=== PATIENT | female | born 1990 | race Caucasian/White ===

== ENCOUNTER 2019-11-04 21:28 | Emergency (ER) | payer OTHER ==
--- OUTSIDE RECORDS SUMMARY | 2019-11-04 21:30 | XMS REPORT | Summary of Care ---
:1990 Author Organization [facility] Address [address] [place] [address] Care Team Providers Name Role Phone Darron Espinozabradford Barrett Primary Care Provider Reason for Visit Reason Comments Medical Records Encounter Details Date Type Department Care Team Description 08/13/[address] [facility] Women's Emma Ba M edical Records [facility]- [address], [address] [place] [phone] [place] [phone] Allergies No Known Allergiesdocumented as of this encounter (statuses as of 08/13/2019) Medications Medication Sig Dispensed Refills Start Date End Date Status vitamin w/FA Take 1 tablet by 100 tablet 3 06/25/2019 Active tabletIndications: mouth daily. High-risk in third trimester, 37 weeks gestation of , Obesity (BMI 30-39.9), Intrauterine growth restriction (IUGR) affecting care of mother, third trimester, single or unspecified fetus, Liveborn infant, of rizo , born in hospital by vaginal delivery docusate calcium 240 Take 1 capsule by 60 capsule 1 06/25/2019 Active mg mouth once daily capsuleIndications: as needed for High-risk Constipation. in third trimester, 37 weeks gestation of , Obesity (BMI 30-39.9), Intrauterine growth restriction (IUGR) affecting care of mother, third trimester, single or unspecified fetus, Liveborn , of rizo , born in hospital by vaginal delivery ferrous sulfate 325 Take 1 tablet by 60 tablet 2 06/25/2019 Active mg (65 mg iron) mouth 2 (two) tabletIndications: times daily. High-risk in third trimester, 37 weeks gestation of , Obesity (BMI 30-39.9), Intrauterine growth restriction (IUGR) affecting care of mother, third trimester, single or unspecified fetus, Liveborn infant, of rizo , born in hospital by vaginal delivery ibuprofen 600 mg Take 1 tablet by 30 tablet 1 06/25/2019 Active tabletIndications: mouth every 6 High-risk (six) hours as in third trimester, needed (Pain). 37 weeks gestation of Take with food or , Obesity milk. (BMI 30-39.9), Intrauterine growth restriction (IUGR) affecting care of mother, third trimester, single or unspecified fetus, Liveborn , of rizo , born in hospital by vaginal delivery hydrocortisone-pramov Insert 1 10 g 0 07/16/2019 Active ine rectal foam Applicator into rectum 2 (two) times daily. documented as of this encounter (statuses as of 08/13/2019) Active Problems Problem Noted Date Routine follow-up 07/22/2019 Obesity (BMI 30-39.9) 05/19/2019 documented as of this encounter (statuses as of 08/13/2019) Resolved Problems Problem Noted Date Resolved Date IUGR (intrauterine growth restriction) affecting care of 07/22/2019 mother Liveborn infant, of rizo , born in hospital by 06/24/2019 07/22/2019 vaginal delivery Poor growth affecting management of mother in third 07/22/2019 trimester High-risk in third trimester 05/04/2019 0 07/22/2019 37 weeks gestation of 05/04/2019 07/22/19 20 documented as of this encounter (statuses as of 08/13/2019) Social History Tobacco Use Types Packs/Day Years Used Date Never Smoker Smokeless Tobacco: Never Used Alcohol Use Drinks/Week oz/Week Comments Not Currently Sex Assigned at Date Recorded Not on file Job Start Date Occupation Industry Not on file Not on file Not on file Travel History Travel Start Travel End No recent travel history available. COVID-19 Exposure Response Date Recorded In the last month, have you been in contact with No / Unsure 07/22/2019 1:22 PM CDT someone who was confirmed or suspected to have Coronavirus / COVID-19? documented as of this encounter Last Filed Vital Signs Not on filedocumented in this encounter Progress Notes Emma Ba PA-C - 08/13/2019 8:20 AM CDTMR received from [facility] on 12/28/18 HIV-neg Free T4- 1.29 HEP B-neg Rubella+ O+ RPR-neg CBC=wnl PAP done on 11/23/18 NILM, HPV neg GC/CT/TRICH-neg USG done on 03/05/2019 Live IUP at 21 weeks 1 day by sonogram FHR 141 bpm Fetus in variable position survey appears normal documented in this encounter Plan of Treatment Date Type Specialty Care Team Description 08/23/2019 Office Visit Obstetrics & Gynecology Radha Benoit MD [address] [place] [address] DR. Mejia [address] [place] [address] 15 [phone] Health Maintenance Due Date Last Done Comments VARICELLA VACCINES (1 of 2 - 1989 2-dose childhood series) DTaP,Tdap,and Td Vaccines (1 - 07/01/1999 Tdap) Depression Screening 2000 PAP SMEAR 2009 INFLUENZA VACCINE Completed 12/01/2018 PNEUMOCOCCAL 0-64 YEARS COMBINED Aged Out No longer eligible based on SERIES patient's age to complete this topic documented as of this encounter Results Not on filedocumented in this encounter Insurance Payer Benefit Plan / Subscriber ID Effective Phone Address T e Group Dates [employer] xxxxxxxxx 2019-Prese [address] BOX Medic [place] [id number] MA[place] MED[place] documented as of this encounter
--- OUTSIDE RECORDS SUMMARY | 2019-11-04 21:30 | XMS REPORT | Summary of Care ---
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 tabletIndications: High-risk in third trimester, 37 weeks gestation [...] third trimester, needed (Pain). 37 weeks gestation Take with food or of , milk. Obesity (BMI 30-39.9), Intrauterine growth restriction (IUGR) affecting care of mother, third trimester, single or unspecified fetus, Liveborn , of rizo , born in hospital by vaginal delivery hydrocortisone-pramo Insert 1 10 g 0 07/16/2019 Active vine rectal foam Applicator into rectum 2 (two) times daily. metroNIDAZOLE Take 1 tablet by 10 tablet 0 08/23/2019 08/28/19 20 Active (FLAGYL) 500 mg mouth 2 (two) tabletIndications: times daily for 5 Uterine perforation days. by uterine sound Hospital, Clinic, or Other Ordered Dose Route Frequency Start Date End Date Status Facility Administered Medication etonogestrel (NEXPLANON) 68 mg Sdrm ONCE NOW 08/23/201908/02 Ended implant 68 mg documented as of this encounter (statuses as of 08/23/2019) Active Problems Problem Noted Date Nexplanon in place 08/23/2019 Uterine perforation by uterine sound 08/23/2019 Obesity (BMI 30-39.9) 05/19/2019 documented as of this encounter (statuses as of 08/23/2019) Resolved Problems Problem Noted Date Resolved Date Routine follow-up 07/22/2019 08/23/2019 IUGR (intrauterine growth restriction) affecting care of 07/22/2019 mother Liveborn , of rizo , born in hospital by 06/24/2019 07/22/2019 vaginal delivery Poor growth affecting management of mother in third 07/22/2019 trimester High-risk in third trimester 05/04/2019 0 07/22/2019 37 weeks gestation of 05/04/2019 07/22/19 20 documented as of this encounter (statuses as of 08/23/2019) Social History Tobacco Use Types Packs/Day Years [...] been in contact with No / Unsure 08/23/2019 1:40 PM CDT someone who was confirmed or suspected to have Coronavirus / COVID-19? documented as of this encounter Last Filed Vital Signs Vital Sign Reading Time Taken Comments Blood Pressure 111/75 08/23/2019 2:14 PM CDT Pulse 72 08/23/2019 2:14 PM CDT Temperature 36.9 C (98.4 F) 08/23/2019 2:14 PM CDT Respiratory Rate 18 08/23/2019 2:14 PM CDT Oxygen Saturation - - Inhaled Oxygen Concentration - - Weight 73 kg (161 lb) 08/23/2019 2:14 PM CDT Height - - Body Mass Index 29.45 06/24/2019 4:47 AM CDT documented in this encounter Progress Notes Lise Benoit MD - 08/23/2019 1:30 PM CDTIUD INSERTION PROCEDURE NOTE Preoperative Diagnoses: Desires LARC The risks, benefits and alternatives were discussed. The patient voiced her understanding. She wished to proceed and an informed consent was obtained. Patient has been identified with name and and will be undergoing IUD placement. Indications for Mirena are: Desires LARC. Patient, procedure and site have been confirmed by the following clinicians: Dr. Benoit. Timeout performed by Dr. Benoit. Procedure: The patient is placed on the exam table in a dorsal lithotomy position. Vaginal speculuminserted. The cervix was cleansed with Betadine x 3. The single tooth tenaculum was placed on the anterior lip of the uterus. Uterus sounded and loss of resistance was noted. Transabdominal USG performed and sound was noted to perforate through the fundus of the uterus. Minimal blood without active bleeding noted. All the instruments removed. Patient has cramping and was given Ibuprofen 600 mg PO once in clinic. Discussed uterine perforation and appeared to be fundal. Patient was observed in the clinic and vital signs stable. Cramping improved with Ibuprofen. Discussed PO Flagyl x 5 days for prophylaxis given uterine perforation. Strong ER precautions given. Patient to follow-up in 2 days via tele-healthor sooner if needed. Discussed awaiting 4 weeks before attempting to place Mirena IUD under ultrasound guidance. Patient elects to use Nexplanon instead. Nexplanon PLACEMENT PROCEDURE NOTE Preoperative Diagnoses: Desires LARC The risks, benefits and alternatives were discussed. The patient voiced her understanding. She wished to proceed and an informed consent was obtained. Patient has been identified by name and and will be undergoing Nexplanon placement. Patient is right handed. Patient, procedure and site have been confirmed by the following clinicians: Dr. Benoit. Timeout performed by Dr. Benoit Procedure: The patient is placed on the exam table in a supine position. Her non-dominant arm is flexed at the elbow and externally rotated so her wrist is parallel to her ear and her hand is positioned next to her head. The inner aspect of the upper arm is marked at 8cm and 12cm superior to the medial epicondyle, in the mid-portion of the upper arm, parallel with the humerus. The surface was cleaned with alcohol swab x 2. The insertion area is injected subcutaneously with 5 ccs of lidocaine 1%without epinephrine along the planned insertion tunnel. The surface of the inner arm is then prepped with betadine x 3. The Nexplanon insertion needle is then inserted at 8cm superior to the medial epicondyle, using counter traction and lifting the skin to keep the needle in the subdermal connective tissue. The needle is advanced to 12 cm above the medial epicondyle. The cannula is then retracted and needle is removed. There is minimal bleeding from the insertion site. The Nexplanon capsule is easily palpable by myself and the patient. Sterile gauze and a pressure dressing is placed over the removal site. The patient tolerated the procedure well and there were no complications. Post-procedure instructions given. Patient verbalized understanding. Findings Successful placement of Nexplanon Assessment Successful placement of Nexplanon Plan Nexplanon insertion (primary encounter diagnosis) Comment: Reviewed counseling as below: I counseled the patient about Nexplanon. It is the most effective form of contraception. After insertion, there is a chance the patient may experience amenorrhea or infrequent, frequent, or prolongedbleeding. There is a >10% chance of having bleeding or spotting between menstrual cycles. Otherpossible side effects include GI issues, headache, acne, breast pain, vaginitis, and weight gain. Complications related to implant insertion occur in about 1% of patients and 1.7% of patients have complications associated with removal. Insertion complications include pain, slight bleeding, hematoma formation, infection, difficult insertion, migration of the implant (implants have been found within the vasculature or chest and need surgery for removal), and unrecognized insertion. Removal may be complicated by breakage of the implant and unable to palpate or locate the implant because of deep insertion requiring additional imaging and even surgery. Fertility returns rapidly after discontinuation of the implants. Patient expressed understanding of risks and desires to proceed. Negative UPT and no unprotected intercourse. Consents signed. Nexplanon inserted as above. Back up method of control recommended for 7 days. Wound care reviewed. Plan: POCT TEST, Etonogestrel (NEXPLANON) implant [address] Comment: as above Plan: Etonogestrel (NEXPLANON) implant 68 mg Encounter for female control Comment: as above Plan: Etonogestrel (NEXPLANON) implant 68 mg Return to clinic PRN problem or 6 months for wwe. Discussed treatment options. Medications as ordered. Reviewed patient instructions and provided printed copy. nexplanon Lot #: [id number] Year removal date: 2022 Patient palpated implant: Yes Lise Benoit MD #[id number] 08/23/2019 5:27 PM documented in this encounter Plan of Treatment Date Type Specialty Care Team Description 08/25/2019 Telemedicine Visit Obstetrics & Gynecology Lise Benoit MD [address] [place] [address] DR. Bruce [place] [address] [phone] Health Maintenance Due Date Last Done Comments VARICELLA VACCINES (1 of 2 - 1989 2-dose childhood series) DTaP,Tdap,and Td Vaccines ( - 07/01/1999 Tdap) Depression Screening 2000 PAP SMEAR 2009 INFLUENZA VACCINE Completed 12/01/2018 PNEUMOCOCCAL 0-64 YEARS COMBINED Aged Out No longer eligible based on SERIES patient's age to complete this topic documented as of this encounter Results Not on filedocumented in this encounter Visit Diagnoses Diagnosis Uterine perforation by uterine sound - P rimary Encounter for IUD insertion Encounter for insertion of intrauterine contraceptive device Nexplanon insertion Insertion of implantable subdermal contr aceptive Nexplanon in place Presence of subdermal contraceptive omar ce Encounter for female control Other specified contraceptive management documented in this encounter Administered Medications Medication Order MAR Action Action Date Dose Rate Site etonogestrel (NEXPLANON) Given 08/23/2019 5:24 PM CDT 68 mg Left Arm implant 68 mg 68 mg, Subdermal, ONCE NOW, 1 dose, 08/23/19 at 1830, Routine, Use approved by: DIGITAL SERVICE ENGINEER documented in this encounter Insurance Payer Benefit Plan / Subscriber ID Effective Phone Address T e Group Dates [employer] xxxxxxxxx 2019-Viola [address] BOX Medic [place] [id number] MA[place] MEDICA[place] documented as of this encounter
--- OUTSIDE RECORDS SUMMARY | 2019-11-04 21:30 | XMS REPORT | Continuity of Care Document ---
:1990 Author Organization [facility] t Address [address] [place] [address] Care Team Providers Name Role Phone Provider, Urgent Care Attending Clinician Unavailable Payers Payer Name Policy Type Policy Number Effective Date Expiration Date S ource Problems This patient has no known problems. Allergies, Adverse Reactions, Alerts This patient has no known allergies or adverse reactions. Medications This patient has no known medications. Procedures This patient has no known procedures. Encounters Start End Encounter Admission Attending Care Care Encounter Source Date/Time Date/Time Type Type Clinicians Facility Department ID 2019-11-02 2019-11-04 Urgent Provider, [facility] [id number] 16:42:53 14:49:19 [facility] [place] [id number] [id number] [phone] [address]al [address] One Results This patient has no known results.
--- OUTSIDE RECORDS SUMMARY | 2019-11-04 21:30 | XMS REPORT | Summary of Care ---
:1990 Author Organization [facility] - Health Address [address] [place] [address] Care Team Providers Name Role Phone Eduardo Espinoza Primary Care Provider Encounter Details Date Type Department Care Team Description 08/18/2019 Orders Only [facility] Doctor Unassigned, No [address] [facility] [place] [address] [address] [place] [address] Allergies No Known Allergiesdocumented as of this encounter (statuses as of 08/18/2019) Medications Medication Sig Dispensed Refills Start Date [...] as of this encounter (statuses as of 08/18/2019) Active Problems Problem Noted Date Routine follow-up 07/22/2019 Obesity (BMI 30-39.9) 05/19/2019 documented as of this encounter (statuses as of 08/18/2019) Resolved Problems Problem Noted Date Resolved Date IUGR (intrauterine growth restriction) affecting care of 07/22/2019 mother Liveborn , of rizo , born in hospital by 06/24/2019 07/22/2019 vaginal delivery Poor growth affecting management of mother in third 07/22/2019 trimester High-risk in third trimester 05/04/2019 0 07/22/2019 37 weeks gestation of 05/04/2019 07/22/19 20 documented as of this encounter (statuses as of 08/18/2019) Social History Tobacco Use Types Packs/Day Years [...] Signs Not on filedocumented in this encounter Plan of Treatment Date Type Specialty Care Team Description 08/23/2019 Office Visit Obstetrics & Gynecology Radha Benoit MD [address] [place] [address] [place] [address] [phone] Health Maintenance Due Date Last Done Comments VARICELLA VACCINES (1 of 2 - 1989 2-dose childhood series) DTaP,Tdap,and Td Vaccines (1 - 07/01/1999 Tdap) Depression Screening 2000 PAP SMEAR 2009 INFLUENZA VACCINE Completed 12/01/2018 PNEUMOCOCCAL 0-64 YEARS COMBINED Aged Out No longer eligible based on SERIES patient's age to complete this topic documented as of this encounter Procedures Procedure Name Priority Date/Time Associated Diagnosis Comme nts EXTERNAL PROVIDER Routine 08/18/2019 12:01 AM CDT RECORDS documented in this encounter Results Not on filedocumented in this encounter Insurance Payer Benefit Plan / Subscriber ID Effective Phone Address T e Group Dates [employer] xxxxxxxxx 2019-Viola P O BOX Medic aid [facility] [place] [id number] MANAGED MEDICA[place] documented as of this encounter
--- OUTSIDE RECORDS SUMMARY | 2019-11-04 21:30 | XMS REPORT | Summary of Care ---
:1990 Author Organization [facility] Address [address] [place] [address] Care Team Providers Name Role Phone Eduardo Espinoza Primary Care Provider Reason for Visit Reason Comments Medical Records Encounter Details Date Type Department Care Team Description 08/11/2019 Telephone [facility] Women's Lise Benoit MD Medical Records [facility] [place] [address] [address] [place], [place] [id number] [place] [phone] Allergies No Known Allergiesdocumented as of this encounter (statuses as of 08/12/2019) Medications Medication Sig Dispensed Refills Start Date [...] as of this encounter (statuses as of 08/12/2019) Active Problems Problem Noted Date Routine follow-up 07/22/2019 Obesity (BMI 30-39.9) 05/19/2019 documented as of this encounter (statuses as of 08/12/2019) Resolved Problems Problem Noted Date Resolved Date IUGR (intrauterine growth restriction) affecting care of 07/22/2019 mother Liveborn infant, of irzo , born in hospital by 06/24/2019 07/22/2019 vaginal delivery Poor growth affecting management of mother in third 07/22/2019 trimester High-risk in third trimester 05/04/2019 0 07/22/2019 37 weeks gestation of 05/04/2019 07/22/19 20 documented as of this encounter (statuses as of 08/12/2019) Social History Tobacco Use Types Packs/Day Years [...] Visit Obstetrics & Gynecology Radha Benoit MD [address] [place] [address] DR. Bruce [place], [place] [address] [phone] Health Maintenance Due Date Last Done Comments VARICELLA VACCINES ( - 1989 2-dose childhood series) DTaP,Tdap,and Td Vaccines ( - 07/01/1999 Tdap) Depression Screening 2000 PAP SMEAR 2009 INFLUENZA VACCINE Completed 12/01/2018 PNEUMOCOCCAL 0-64 YEARS COMBINED Aged Out No longer eligible based on SERIES patient's age to complete this topic documented as of this encounter Results Not on filedocumented in this encounter Insurance Payer Benefit Plan / Subscriber ID Effective Phone Address T [facility] Group Dates [employer] xxxxxxxxx 2019-Prese P [address] BOX Medic [place] [phone] MANAGED MEDICA[place] documented as of this encounter
--- OUTSIDE RECORDS SUMMARY | 2019-11-04 21:31 | XMS REPORT | Summary of Care ---
:1990 Author Organization [facility] Address [address] [place] [address] Care Team Providers Name Role Phone Eduardo Espinoza Primary Care Provider Reason for Visit Reason Comments Procedure nexplanon removal Encounter Details Date Type Department Care Team Description 10/22/2019 Office Visit [facility] Women's AdumTammy MD Nexplanon removal (Primary Dx); [facility]- [address] Breakthrough bleeding on Nex planon [address] [facility] [address], [address] [place] [phone] Allergies No Known Allergiesdocumented as of this encounter (statuses as of 10/22/2019) Medications Medication Sig Dispensed Refills Start End Date Status Date ferrous sulfate 325 Take 1 tablet 60 tablet 2 Active mg (65 mg iron) by mouth 2 0 tabletIndications: (two) times High-risk daily. in third trimester, 37 weeks gestation of , Obesity (BMI 30-39.9), Intrauterine growth restriction (IUGR) affecting care of mother, third trimester, single or unspecified fetus, Liveborn infant, of rizo , born in hospital by vaginal delivery vitamin Take 1 tablet 100 tablet 3 10/22/19 Discontinued w/FA by mouth 0 20 (Patient tabletIndications: daily. R eported) High-risk in third trimester, 37 weeks gestation of , Obesity (BMI 30-39.9), Intrauterine growth restriction (IUGR) affecting care of mother, third trimester, single or unspecified fetus, Liveborn infant, of rizo , born in hospital by vaginal delivery docusate calcium Take 1 capsule 60 capsule 1 0 Discontinued 240 mg by mouth once 0 20 (Patie nt capsuleIndications: daily as Reported) High-risk needed for in third trimester, Constipation. 37 weeks gestation of , Obesity (BMI 30-39.9), Intrauterine growth restriction (IUGR) affecting care of mother, third trimester, single or unspecified fetus, Liveborn infant, of rizo , born in hospital by vaginal delivery ibuprofen 600 mg Take 1 tablet 30 tablet 1 10/22/19 Discontinued tabletIndications: by mouth every 0 20 (Patient High-risk 6 (six) hours Reported) in third trimester, as needed 37 weeks gestation (Pain). Take of , with food or Obesity (BMI milk. 30-39.9), Intrauterine growth restriction (IUGR) affecting care of mother, third trimester, single or unspecified fetus, Liveborn , of rizo , born in hospital by vaginal delivery hydrocortisone-pram Insert 1 10 g 0 10/22/19 Discontinued ovine rectal foam Applicator 0 20 ( Patient into rectum 2 Report ed) (two) times daily. ondansetron 4 mg Take 1 tablet 6 tablet 0 10/22/19 Discontinued disintegrating by mouth every 0 20 (Patient tablet 12 (twelve) Reported ) hours as needed for Nausea and Vomiting (N/V). Take 30 minutes before taking antibiotic. ondansetron (ZOFRAN Take 1 tablet 20 tablet 0 Discontinued ODT) 8 mg by mouth every 0 20 (Ther apy disintegrating 8 (eight) compl eted) tabletIndications: hours as Nausea needed for Nausea and Vomiting (N/V). 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 Obesity (BMI 30-39.9) 05/19/2019 documented as of this encounter (statuses as of 10/22/2019) Resolved Problems Problem Noted Date Resolved Date Nexplanon in place 08/23/2019 10/22/2019 Routine follow-up 07/22/2019 08/23/2019 IUGR (intrauterine growth restriction) affecting care of 07/22/2019 mother Liveborn infant, of rizo , born in hospital by 06/24/2019 07/22/2019 vaginal delivery Poor growth affecting management of mother in third 07/22/2019 trimester High-risk in third trimester 05/04/2019 0 07/22/2019 37 weeks gestation of 05/04/2019 07/22/19 20 documented as of this encounter (statuses as of 10/22/2019) Social History Tobacco Use Types Packs/Day Years Used Date Never Smoker Smokeless Tobacco: Never Used Alcohol Use Drinks/Week oz/Week Comments Not Currently Sex Assigned at Date Recorded Not on file COVID-19 Exposure Response Date Recorded In the last month, have you been in contact with No / Unsure 10/22/2019 11:49 AM CDT someone who was confirmed or suspected to have Coronavirus / COVID-19? documented as of this encounter Last Filed Vital Signs Vital Sign Reading Time Taken Comments Blood Pressure 119/82 10/22/2019 11:49 AM CDT Pulse 76 10/22/2019 11:49 AM CDT Temperature 36.8 C (98.2 F) 10/22/2019 11:49 AM CDT Respiratory Rate 16 10/22/2019 11:49 AM CDT Oxygen Saturation - - Inhaled Oxygen Concentration - - Weight 70.4 kg (155 lb 3.2 oz) 10/22/2019 11:49 AM CDT Height 157.5 cm (5' 2") 10/22/2019 11:49 AM CDT Body Mass Index 28.39 10/22/2019 11:49 AM CDT documented in this encounter Patient Instructions Patient InstructionsNikki Garrison MA - 10/22/2019 11:00 AM CDT Patient Education Control: IUD (Intrauterine Device) The IUD (intrauterine device) is small, flexible, and T-shaped. A trained healthcare provider placesit in the uterus. The IUD is one of the most effective control methods. It is also reversible.This means it can be removed at any time by a trained healthcare provider. New IUDs are safe and do not have the risks of older types of IUDs. rates Talk to your healthcare provider about the effectiveness of this control method. Types of IUDs IUD insertion is done in the healthcare providers office. Two types of IUDs are available: The copper IUD releases a small amount of copper into the uterus. The copper makes it harder for sperm to reach the egg. The device works for at least 10 years. The progestin IUD releases a hormone called progestin. It causes changes in the uterus to help prevent . The device works for 3 to 5 years, depending on which device is chosen. It may be recommended for women who have anemia or heavy and painful periods. IUDs have thin strings that hang from the opening of the uterus into the vagina. This lets youcheck that the IUD stays in place. Things to know about IUDs IUDs can be used by women who have never been or by women with a history of sexually transmitted infections (STIs) or tubal . It won't move from the uterus to any other part of the body. There is a slight risk of the device coming out of the vagina (expulsion). It may not work in women who have an abnormally shaped uterus. A copper IUD may cause heavier periods and cramping. Progestin IUD may cause light periods or no periods at all (irregular bleeding or spotting is possible and normal during first 3 to 6 months). If you get a sexually transmitted infection with an IUD in place, symptoms may be more severe. When to call your healthcare provider Be sure your healthcare provider knows if you have: Asexually transmittedinfection (STI)or possible STI Liver problems Blood clots (for progestin IUD only) Breast cancer or a history of breast cancer (progestin IUD only) [employer]on last reviewed this educational content on 05/01/201619990068-1197 The [employer]. [address] [place] [address]. All rights reserved. This information is not intended as a substitute for professional medical care. Always follow your healthcare professional's instructions. documented in this encounter Progress Notes Tammy Mario MD - 10/22/2019 11:00 AM CDT29 year-old presents requesting removal of her Nexplanon inserted 2 months ago due to continualbleeding. I explained that the bleeding pattern is a known side- effect of the Nexplanon within thisperiod and that in most cases it resolves with time. She still opted for removal and will schedule an appointment to discuss Paragard insertion with Dr Benoit Nexplanon REMOVAL PROCEDURE NOTE Preoperative Diagnoses: Desires removal of Nexplanon The risks, benefits and alternatives were discussed. The patient voiced her understanding. She wished to proceed and an informed consent was obtained. Patient has been identified by name and and will be undergoing Nexplanon removal. Patient is left handed. Patient, procedure and site have been confirmed by the following clinicians: Tammy Mario MD. Timeout performed by Tammy Mario MD at 11:45 Procedure: The patient is placed on the exam table in a supine position. The implant was palpated onthe inner aspect of the left arm. The Nexplanon implant site is prepped with Betadine. Local area isinjected subcutaneously with 2 cc of lidocaine 1% without epinephrine along the planned incision site. A small incision is made with a sterile scalpel. Straight hemostat is used to access the implant through the incision site. The implant is secured with the hemostat and carefully removed through theincision. There is minimal bleeding from the incision site. Sterile gauze and a pressure dressing is placed over the removal site. The patient tolerated the procedure well and there were no complications. Post-procedure instructions given. Patient verbalized understanding. Findings Intact Nexplanon Assessment/Plan Nexplanon removal (primary encounter diagnosis) Comment: See above for procedure. Also reminded patient that she has no BC on board so to please useprotection/condoms Breakthrough bleeding on Nexplanon Tammy Mario MD documented in this encounter Plan of Treatment Date Type Specialty Care Team Description 11/05/2019 Office Visit Obstetrics & Gynecology Radha Benoit MD [address] [place] [address] [place] [address] 02/28/2020 Office Visit Obstetrics & Gynecology Emma Ba PA-C [address] [phone] Health Maintenance Due Date Last Done Comments VARICELLA VACCINES ( - 1989 2-dose childhood series) Depression Screening 2000 DTaP,Tdap,and Td Vaccines (1 - 07/01/2007 Tdap) PAP SMEAR 2009 INFLUENZA VACCINE (#1) 2019 12/01/2018 PNEUMOCOCCAL 0-64 YEARS COMBINED Aged Out No longer eligible based on SERIES patient's age to complete this topic documented as of this encounter Results Not on filedocumented in this encounter Visit Diagnoses Diagnosis Nexplanon removal - Primary Surveillance of previously prescribed im plantable subdermal contraceptive Breakthrough bleeding on Nexplanon Metrorrhagia documented in this encounter Insurance Payer Benefit Plan / Subscriber ID Effective Phone Address T ype Group Dates [employer] [id number] 2019-Viola DODD Medic [facility] [place] [phone] MANAGED MEDICAID [place] documented as of this encounter
--- OUTSIDE RECORDS SUMMARY | 2019-11-04 21:31 | XMS REPORT | Summary of Care ---
:1990 Author Organization [facility] Address [address] [place] [address] Care Team Providers Name Role Phone Eduardo Espinoza Primary Care Provider Reason for Visit Reason Comments Follow-up Encounter Details Date Type Department Care Team Description 08/25/2019 Telemedicine Visit [facility] Women's Lise Benoit MD Uterine perforation Healthcare- [address] [place] [address] by uterine sound [place] (Primary Dx) [address] [place] [address], [address] [place] [phone] Allergies No Known Allergiesdocumented as of this encounter (statuses as of 08/25/2019) Medications Medication Sig Dispensed Refills Start Date [...] 5 Uterine perforation days. 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 Communication with patient was conducted via Video Call. Location of Patient: in car Location of Provider: Office Date of Service: 08/25/2019 Chief Complaint: follow-up after uterine perforation with the sound on 08/23/2019 HPI: Steph Ramirez is a 29 year old female here for follow-up. Patient had uterine perforation that occurred during sounding of the uterus on 08/23/2019. Currently taking Flagyl for prophylaxis. Denies cramping or pain. States that she had a small amount of dark blood from vagina yesterday. No other issues. Past Medical History: Diagnosis Date Heart palpitations IBS (irritable bowel syndrome) MEDICATIONS: Outpatient Medications Marked as Taking for the 08/25/19 encounter (Telemedicine Visit) with Lise Benoit MD Medication Sig Dispense Refill metroNIDAZOLE (FLAGYL) 500 mg tablet Take 1 tablet by mouth 2 (two) times daily for 5 days. 10 tablet 0 ROS As above TELEHEALTH EXAM NAD Breathing unlabored ASSESSMENT/ PLAN Steph Ramirez is a 29 year old female with PMH as above presenting with: 1. Uterine perforation by uterine sound - Doing well - finish Flagyl as prescribed - FOLLOW-UP in 6 months for WWE or sooner if indicated After visit summary (AVS ) documentation will be available through [employer]) for this encounter. A total of 10 minutes was spent on the video call and chart review. Lise Benoit MD 08/25/2019 11:35 AM documented in this encounter Plan of Treatment Date Type Specialty Care Team Description 02/28/2020 Office Visit Obstetrics & Gynecology Emma Ba PA-C [address] [place] [address] [phone] Health Maintenance Due Date Last Done [...] perforation by uterine sound - P rimary documented in this encounter Insurance Payer Benefit Plan / Subscriber ID Effective Phone Address T ype Group Dates [employer] xxxxxxxxx 2019-Prese [address] BOX Medic aid [facility] [place] [facility] [place] [phone] [place] MEDICA[place] documented as of this encounter
--- OUTSIDE RECORDS SUMMARY | 2019-11-04 21:31 | XMS REPORT | Summary of Care ---
:1990 Author Organization [facility] Address [address] [place] [address] Care Team Providers Name Role Phone Eduardo Espinoza Primary Care Provider Reason for Visit Reason Comments Procedure nexplanon removal Encounter Details Date Type Department Care Team Description 10/22/2019 Office Visit [facility] Women's AdumTammy MD Nexplanon removal (Primary Dx); [facility]- [address] Breakthrough bleeding on Nex planon [address] [facility] [address], [address] [place] [phone] Allergies No Known Allergiesdocumented as of this [...] history of breast cancer (progestin IUD only) [employer] last reviewed this educational content on 05/01/201619997599-9543 The [employer]. [address] [place] [address]. All rights reserved. This information is not [...] Visit Obstetrics & Gynecology Radha Benoit MD [address] [place] [address] [place] [address] 02/28/2020 Office Visit Obstetrics & Gynecology Emma Ba PA-C [address] [phone] Health Maintenance Due Date Last Done [...] Address T ype Group Dates [employer] [id number] 2019-Viola DODD Medic [facility] [place] [place] [phone] MA[place] MEDICA[place] documented as of this encounter
--- OUTSIDE RECORDS SUMMARY | 2019-11-04 21:31 | XMS REPORT | Summary of Care ---
:1990 Author Organization [facility] Address [address] [place] [address] Care Team Providers Name Role Phone Eduardo Espinoza Primary Care Provider Reason for Visit Reason Comments Screening fever, sinus congestion Encounter Details Date Type Department Care Team Description 10/09/2019 Laboratory Only [facility] Family Tyler Membreno, CERTIFIED RETINAL ANGIOGRAPHER [address] [phone] Exposure to Covid-19 Medicine - [facility], Adc Fam Pob I Virus (Primary Dx) [address] [place] [address] Allergies No Known Allergiesdocumented as of this encounter (statuses as of 10/09/2019) Medications Medication Sig Dispensed Refills Start Date [...] by 60 capsule 1 06/25/2019 Active mg capsuleIndications: mouth once daily High-risk in as needed for third trimester, 37 Constipation. weeks gestation of , Obesity (BMI 30-39.9), Intrauterine growth restriction (IUGR) affecting care of mother, third trimester, single or unspecified fetus, Liveborn , of rizo , born in hospital by vaginal delivery ferrous sulfate 325 mg Take 1 tablet by 60 tablet 2 06/25/2019 Active (65 mg iron) mouth 2 (two) tabletIndications: times daily. High-risk in third trimester, 37 weeks gestation of , Obesity (BMI 30-39.9), Intrauterine growth restriction (IUGR) affecting care of mother, third trimester, single or unspecified fetus, Liveborn infant, of rizo , born in hospital by vaginal delivery ibuprofen 600 mg Take 1 tablet by 30 tablet 1 06/25/2019 Active tabletIndications: mouth every 6 High-risk in (six) hours as third trimester, 37 needed (Pain). weeks gestation of Take with food or , Obesity milk. (BMI 30-39.9), Intrauterine growth restriction (IUGR) affecting care of mother, third trimester, single or unspecified fetus, Liveborn , of rizo , born in hospital by vaginal delivery hydrocortisone-pramovi Insert 1 10 g 0 07/16/2019 Active ne rectal foam Applicator into rectum 2 (two) times daily. ondansetron 4 mg Take 1 tablet by 6 tablet 0 08/26/2019 Active disintegrating tablet mouth every 12 (twelve) hours as needed for Nausea and Vomiting (N/V). Take 30 minutes before taking antibiotic. 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 08/23/2019 Obesity (BMI 30-39.9) 05/19/2019 documented as of this encounter (statuses as of 10/09/2019) Resolved Problems Problem Noted Date Resolved Date [...] as of this encounter (statuses as of 10/09/2019) Social History Tobacco Use Types Packs/Day Years Used Date Never Smoker Smokeless Tobacco: Never Used Alcohol Use Drinks/Week oz/Week Comments Not Currently Sex Assigned at Date Recorded Not on file COVID-19 Exposure Response Date Recorded In the last month, have you been in contact with No / Unsure 10/09/2019 1:35 PM CDT someone who was confirmed or suspected to have Coronavirus / COVID-19? documented as of this encounter Last Filed Vital Signs Not on filedocumented in this encounter Nursing Notes Macy Painting LVN - 10/09/2019 1:20 PM CDTGmayra Ramirez is a 29 year old female here for COVID Screening with a Nasopharyngeal Swab All droplet and contact precautions taken with appropriate PPE worn while interacting with patient. ? Goggles ? N95 Mask ? Gloves ? Gown RR 18 Pulse Ox 98% Patient educated on plan of care for visit, swabbing technique, risks and benefits of test and length of time to receive results. Verbal consent obtained to perform test. CDC Fact Sheet for Patients nCoV Diagnostic Panel dated 05/16/2019 and Factsheet What to Do if Sick with COVID 19 04/26/19 provided. Patient swabbed per appropriate nasopharyngeal technique, and patient tolerated well. Patient was discharged from the testing clinic in stable condition. Macy Painting LVN 10/09/2019 1:37 PM Nikki Bryson MA - 10/09/2019 1:20 PM CDTPatient educated on plan of care for visit, swabbing technique, risks and benefits of test and length of time to receive results. Verbal consent obtained to perform test. CDC Fact Sheet for Patients nCoV Diagnostic Panel dated 05/16/2019 provided. documented in this encounter Plan of Treatment Date Type Specialty Care Team Description 02/28/2020 Office Visit Obstetrics & Gynecology Emma Ba PA-C [address] [place] [phone] Name Type Priority Associated Diagnoses Order S chedule COVID-19 (PCR MOLECULAR LAB Routine Exposure to Covid -19 Virus Ordered: 10/09/2019 TESTING) Health Maintenance Due Date Last Done Comments VARICELLA VACCINES (1 of 2 - 1989 2-dose childhood series) Depression Screening 2000 DTaP,Tdap,and Td Vaccines (1 - 07/01/2007 Tdap) PAP SMEAR 2009 INFLUENZA VACCINE (#1) 2019 12/01/2018 PNEUMOCOCCAL 0-64 YEARS COMBINED Aged Out No longer eligible based on SERIES patient's age to complete this topic documented as of this encounter Results Not on filedocumented in this encounter Visit Diagnoses Diagnosis Exposure to Covid-19 Virus - Primary documented in this encounter Additional Health Concerns Infection Onset Date Last Indicated Resolved Time COVID-19 Rule Out 10/09/2019 10/09/2019 documented as of this encounter Insurance Payer Benefit Plan / Subscriber ID Effective Phone Address T e Group Dates [employer] [id number] 2019-Viola DODD Medic [place] [facility] [place] [place] [phone] MA[place]GED MEDICA[place] documented as of this encounter
--- OUTSIDE RECORDS SUMMARY | 2019-11-04 21:31 | XMS REPORT | Summary of Care ---
:1990 Author Organization [facility] Address [address] [place] [address] Care Team Providers Name Role Phone Eduardo Espinoza Primary Care Provider Reason for Visit Reason Comments Rx Concern/Question pt indicated not allergic re action/ just side effects Encounter Details Date Type Department Care Team Description 08/26/2019 Telephone [facility] Women's Lise Benoit MD Rx Concern/Question Healthcare- [address] (pt indicated not [address] [place] [address] allergic reaction/ [address], [address] just side effects) [place], [place] [phone] Allergies No Known Allergiesdocumented as of this encounter (statuses as of 08/26/2019) Medications Medication Sig Dispensed Refills Start Date [...] 5 Uterine perforation days. by uterine sound ondansetron 4 mg Take 1 tablet by 6 tablet 0 08/26/2019 Active disintegrating tablet mouth every 12 (twelve) hours as needed for Nausea and Vomiting (N/V). Take 30 minutes before taking antibiotic. 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 08/23/2019 Obesity (BMI 30-39.9) 05/19/2019 documented as of this encounter (statuses as of 08/26/2019) Resolved Problems Problem Noted Date Resolved Date [...] as of this encounter (statuses as of 08/26/2019) Social History Tobacco Use Types Packs/Day Years [...] Visit Obstetrics & Gynecology Emma Ba PA-C [address] [place] [phone] Health Maintenance Due Date Last Done [...] / Subscriber ID Effective Phone Address T [facility] Group Dates [employer] xxxxxxxxx 2019-Viola [address] Medic [place] [phone] MA[place] MEDICA[place] documented as of this encounter
--- OUTSIDE RECORDS SUMMARY | 2019-11-04 21:31 | XMS REPORT | Summary of Care ---
:1990 Author Organization [facility] - [facility] Address [address] [place] [address] Care Team Providers Name Role Phone Eduardo Espinoza Primary Care Provider Reason for Visit Reason Comments Kidney Problem possible kidney infection Encounter Details Date Type Department Care Team Description 11/02/2019 Urgent Care [facility] Family Tyler Membreno, TAPEMAN [address] [address] Suprapubic pain (Primary Dx); [facility] Provider, [facility] Urgent Care Flank pain; [address] [place] [address] Allergies No Known Allergiesdocumented as of this encounter (statuses as of 11/02/2019) Medications Medication Sig Dispensed Refills Start Date End Date Status ferrous sulfate 325 mg Take 1 tablet 60 tablet 2 06/25/2019 Active (65 mg iron) by mouth 2 tabletIndications: (two) times High-risk in daily. third trimester, 37 weeks gestation of , Obesity (BMI 30-39.9), Intrauterine growth restriction (IUGR) affecting care of mother, third trimester, single or unspecified fetus, Liveborn , of rizo , born in hospital by vaginal delivery Nitrofurantoin&Nit. TAKE 1 CAPSULE 0 10/09/2019 Active Macrocryst 100 mg BY MOUTH EVERY capsule 12 HOURS FOR 5 DAYS ondansetron 8 mg 0 10/13/2019 Ac tive disintegrating tablet phenazopyridine Take 2 tablets 18 tablet 0 11/02/2019 11/05/19 20 Active (PYRIDIUM) 100 mg by mouth 3 tabletIndications: (three) times Dysuria daily for 3 days. 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 Obesity (BMI 30-39.9) 05/19/2019 documented as of this encounter (statuses as of 11/02/2019) Resolved Problems Problem Noted Date Resolved Date [...] as of this encounter (statuses as of 11/02/2019) Social History Tobacco Use Types Packs/Day Years [...] Sign Reading Time Taken Comments Blood Pressure 121/83 11/02/2019 4:45 PM CDT Pulse 90 11/02/2019 4:45 PM CDT Temperature 37.1 C (98.8 F) 11/02/2019 4:45 PM CDT Respiratory Rate 18 11/02/2019 4:45 PM CDT Oxygen Saturation 99% 11/02/2019 4:45 PM CDT Inhaled Oxygen Concentration - - Weight 69.4 kg (153 lb) 11/02/2019 4:45 PM CDT Height 157.5 cm (5' 2") 11/02/2019 4:45 PM CDT Body Mass Index 27.98 11/02/2019 4:45 PM CDT documented in this encounter Progress Notes Silvana Membreno FNP - 11/02/2019 4:40 PM CDT Cc: Chief Complaint Patient presents with Kidney Problem possible kidney infection Steph Ramirez is a 29 year old female. Patient is here with urinary symptoms as detailed below, this started 1 month ago with fever becauseof her fever she had Mismi and was covid tested and treated empirically with Levaquin for 5 days, which she completed on the 16 of September. She felt better, the 2 days ago she started having flankpain and urgency, dark urine again. She was negative for covid at the time. She has a hx of recurrent kidney stones. URINARY TRACT INFECTION Patient presents to clinic today with complaints of flank pain (right ) and urgency. This is a recurrent problem. The current episode started in the past 7 days. The problem has been gradually worsening since onset. Her pain is at a severity of 3/10. The pain is mild. Patient describes pain as burningand aching. There has been no fever. She describes her urine color as yellow. Obstructive symptoms include incomplete emptying. Pertinent negatives include no fever. She has tried antibiotics and increased fluids for the symptoms.The treatment provided mild relief. Her past medical history is significant for kidney stones and recurrent UTIs. Allergies Steph has No Known Allergies. Medications Outpatient Medications Prior to Visit Medication Sig Dispense Refill Nitrofurantoin&Nit. Macrocryst 100 mg capsule TAKE 1 CAPSULE BY MOUTH EVERY 12 HOURS FOR 5 DAYS ondansetron 8 mg disintegrating tablet ferrous sulfate 325 mg (65 mg iron) tablet Take 1 tablet by mouth 2 (two) times daily. 60 tablet2 No facility-administered medications prior to visit. 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 Social Needs Financial resource strain: Not on file Food insecurity Worry: Not on file Inability: Not on file Transportation needs Medical: Not on file Non-medical: Not on file Tobacco Use Smoking status: Never Smoker Smokeless tobacco: Never Used Substance and Sexual Activity Alcohol use: Not Currently Drug use: Not Currently Sexual activity: Yes Partners: Male Lifestyle Physical activity Days per week: Not on file Minutes per session: Not on file Stress: Not on file Relationships Social connections Talks on phone: Not on file Gets together: Not on file Attends muslim service: Not on file Active member of club or organization: Not on file Attends meetings of clubs or organizations: Not on file Relationship status: Not on file Intimate partner violence Fear of current or ex partner: Not on file Emotionally abused: Not on file Physically abused: Not on file Forced sexual activity: Not on file Other Topics Concern Not on file Social History Narrative Patient feels safe at home, no abuse. Jain preference: Mormon Family History Problem Relation Age of Onset Diabetes Father Heart Father Review of Systems Constitutional: Negative. Negative for fever. Respiratory: Negative. Negative for apnea, cough, choking, chest tightness, shortness of breath andwheezing. Cardiovascular: Negative. Negative for chest pain, palpitations and leg swelling. Gastrointestinal: Negative. Genitourinary: Positive for incomplete emptying. Skin: Negative. Neurological: Negative. Endocrine: Endocrine negative Vital Signs BP 121/83 (BP Location: Left arm, Patient Position: Sitting, BP CUFF SIZE: Adult Medium) | Pulse 90 | Temp 37.1 C (98.8 F) (Oral) | Resp 18 | Ht 5' 2" (1.575 m) | Wt 153 lb (69.4 kg) | SpO2 99% | BMI 27.98 kg/m Physical Exam Vitals signs and nursing note reviewed. Constitutional: Appearance: She is well-developed. HENT: Head: Normocephalic. Right Ear: External ear normal. Left Ear: External ear normal. Nose: Nose normal. Neck: Musculoskeletal: Normal range of motion and neck supple. Cardiovascular: Rate and Rhythm: Normal rate and regular rhythm. Heart sounds: Normal heart sounds. No murmur. No friction rub. No gallop. Pulmonary: Effort: Pulmonary effort is normal. No respiratory distress. Breath sounds: Normal breath sounds. No wheezing or rales. Chest: Chest wall: No tenderness. Abdominal: General: Bowel sounds are normal. There is no distension. Palpations: Abdomen is soft. Tenderness: There is no abdominal tenderness. There is right CVA tenderness and left CVA tenderness. Skin: General: Skin is warm and dry. Capillary Refill: Capillary refill takes less than 2 seconds. Coloration: Skin is not pale. Findings: No erythema or rash. Neurological: Mental Status: She is alert and oriented to person, place, and time. Psychiatric: Mood and Affect: Mood normal. Assessment/Plan 1. Dysuria: UA shows + nitrate, blood and leukocytes and culture done and pending. Will hold of on any antibiotics treatment again until culture comes back. 2. Abdominal pain and flank pain: will get KUB to rule acute stones. Increase fluids, namely water. UCx is pending. Discussed ways of decreasing the risk of future UTIs including wiping from front to back, increasing intake of water, emptying the bladder at regular intervals/avoiding holding urine for prolonged periods of time, and urinating after sexual intercourse. Plan of care, desired health behaviors, goals, and medication discussed with patient. Education resources provided and reviewed with AVS. Patient/guardian/family verbalized understanding & agrees to plan of care. This visit did not involve counseling and coordination that comprised more than 50% of the visit time. If applicable, the [place] [employer] database was accessed to review any controlled substance prescription claims data. The [employer] prescription claims data in GENB[employer] was reviewed to assess patient compliance with the medication treatment plan. documented in this encounter Plan of Treatment Date Type Specialty Care Team Description 11/05/2019 Office Visit Obstetrics & Gynecology Radha Benoit MD [address] [place] [address] 15 02/28/2020 Office Visit Obstetrics & Gynecology Emma Ba PA-C [address] [place] [address] [phone] Name Type Priority Associated Diagnoses Order S chedule XR KUB IMAGING STAT Suprapubic pain Expected: 11/02/2019, Expires: Flank pain 11/01/2020 Health Maintenance Due Date Last Done Comments [...] filedocumented in this encounter Visit Diagnoses Diagnosis Suprapubic pain - Primary Abdominal pain, other specified site Flank pain Abdominal pain, unspecified site Dysuria documented in this encounter Insurance Payer Benefit Plan / Subscriber ID Effective Phone Address T ype Group Dates [employer] [id number] 2019-Viola [address] B[address] Medic aid [facility] [id number] MANAGED MEDICAID [place], [place] documented as of this encounter
--- OUTSIDE RECORDS SUMMARY | 2019-11-04 21:31 | XMS REPORT | Summary of Care ---
:1990 Author Organization [facility] Address [address] [place] [address] Care Team Providers Name Role Phone Eduardo Espinoza Primary Care Provider Reason for Visit Reason Onset Date Comments Information 10/13/2019 Encounter Details Date Type Department Care Team Description 10/13/2019 Nurse Triage [facility] Marc[facility], Information [address] [facility] [place] [address] 301 [facility] [phone] [place] [address] Allergies No Known Allergiesdocumented as of this encounter (statuses as of 10/13/2019) Medications Medication Sig Dispensed Refills Start Date [...] as of this encounter (statuses as of 10/13/2019) Active Problems Problem Noted Date Nexplanon in place 08/23/2019 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 Patient scheduled for 10/13/2019 at 1600. Protocols used: INFORMATION ONLY [id number] Telephone Encounter - Emma Arcos RN - 10/13/2019 1:17 AM CDT Regarding: kidney pain and low grade fever ----- Message from Zackary Oconnell sent at 10/13/2019 1:15 AM CDT ----- Steph Ramirez is a 29 year old female documented in this encounter Plan of Treatment Date Type Specialty Care Team Description 10/13/2019 Telemedicine Visit Family Medicine Care, Provider 12 - Adult Urgent 02/28/2020 Office Visit Obstetrics & Gynecology Emma Ba PA-C [address] [place] [address] Health Maintenance Due Date Last Done Comments [...] Plan / Subscriber ID Effective Phone Address [facility] Group Dates [employer] [id number] 2019-Prese [place] [facility] [place] [phone] MANAGED MEDICAID [place] documented as of this encounter
--- OUTSIDE RECORDS SUMMARY | 2019-11-04 21:31 | XMS REPORT | Summary of Care ---
:1990 Author Organization [facility] Address [address] [place] [address] Care Team Providers Name Role Phone Eduardo Espinoza Primary Care Provider Reason for Visit Reason Comments Kidney Problem possible kidney infection Encounter Details Date Type Department Care Team Description 11/02/2019 Urgent Care [facility] Family Tyler Membreno, CASE MANAGERS [address] [address] Suprapubic pain (Primary Dx); [facility] Provider, [facility] Flank pain; [address] [place] [address] Allergies No Known Allergiesdocumented as [...] with fever becauseof her fever she had Haitaobei and was covid tested and treated empirically [...] level: Not on file 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 Catholic preference: Druze Family History Problem Relation Age of Onset [...] of the visit time. If applicable, the [place] [email or web address] database was accessed to review any controlled substance prescription claims data. The [employer] prescription claims data in Intelipost was reviewed to assess patient compliance with the medication treatment plan. documented in this encounter Miscellaneous Notes Addendum Note - Paxton Gill MA - 11/02/2019 4:40 PM CDT Addended by: PAXTON GILL MA on: 11/02/2019 05:11 PM Modules accepted: Orders documented in this encounter Plan of Treatment Date Type Specialty Care Team Description 11/05/2019 Office Visit Obstetrics & Gynecology Radha Benoit MD [address] [place] [address] [place] [address] [phone] 02/28/2020 Office Visit Obstetrics & Gynecology Emma Ba PA-C [address] [place] [address] [phone] Name Type Priority Associated Diagnoses Order S chedule XR KUB IMAGING STAT Suprapubic pain Expected: 11/02/2019, Flank pain Expires: 2020 URINE CULTURE LAB Routine Dysuria Ordered: 11/01 Health Maintenance Due Date Last Done Comments [...] Address T e Group Dates [employer] [id number] 2019-Viola DODD Medic [place] [phone] [place] MEDICAID [place] documented as of this encounter
--- OUTSIDE RECORDS SUMMARY | 2019-11-04 21:31 | XMS REPORT | Summary of Care ---
:1990 Author Organization [facility] Address [address] [place] [address] Care Team Providers Name Role Phone Eduardo Espinoza Primary Care Provider Reason for Visit Reason Comments Follow-up Encounter Details Date Type Department Care Team Description 08/25/2019 Telemedicine Visit [facility] Women's Lise Benoit MD Uterine perforation [facility]- [address] [place] [address] by uterine sound [place] (Primary Dx) [address] [place] [address] [address] [place] [address] [phone] Allergies No Known Allergiesdocumented as of this [...] (AVS ) documentation will be available through [employer] for this encounter. A total of 10 minutes was spent on the video call and chart review. Lise Benoit MD 08/25/2019 11:35 AM documented in this encounter Plan of Treatment Date Type Specialty Care Team Description 02/28/2020 Office Visit Obstetrics & Gynecology Emma Ba PA-C [address] [place] [phone] Health Maintenance Due Date Last Done [...] P O BOX Medic aid [place] [phone] [place] MEDICA[place] documented as of this encounter
--- OUTSIDE RECORDS SUMMARY | 2019-11-04 21:31 | XMS REPORT | Summary of Care ---
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 nexplanon Lot #: [id number] Year removal date: 2022 Patient palpated implant: Yes Lise Benoit MD #[id number] 08/23/2019 5:27 PM documented in this encounter Plan of Treatment Date Type Specialty Care Team Description 08/25/2019 Telemedicine Visit Obstetrics & Gynecology Lise Benoit MD [address] [place] [address] [address]. [address] [place] [address] [phone] Health Maintenance Due Date Last Done Comments [...] 08/23/19 at 1830, Routine, Use approved by: [employer] documented in this encounter Insurance Payer Benefit Plan / Subscriber ID Effective Phone Address T e Group Dates [employer] JAV[employer] xxxxxxxxx 2019-Viola [address] B[address] [place] [phone] [place] MEDICA[place] documented as of this encounter
--- OUTSIDE RECORDS SUMMARY | 2019-11-04 21:32 | XMS REPORT | Summary of Care ---
:1990 Author Organization [facility] - [facility] Address [address] [place] [address] Care Team Providers Name Role Phone Eduardo Espinoza Primary Care Provider Encounter Details Date Type Department Care Team Description 11/02/2019 Orders Only [facility] Doctor Unassigned, No [address] [facility] [place] [address] [address] [place] [address] Allergies No Known Allergiesdocumented as of this [...] Treatment Date Type Specialty Care Team Description 11/02/2019 Appointment Radiology Silvana Membreno FNP [address] [place] [phone] 11/05/2019 Office Visit Obstetrics & Gynecology Radha Benoit MD [address] [place] [address] 02/28/2020 Office Visit Obstetrics & Gynecology Emma Ba PA-C [address] [place] [phone] Health Maintenance Due Date Last Done [...] Name Priority Date/Time Associated Diagnosis Comme nts ASSIGNMENT OF BENEFITS Routine 11/02/2019 5:21 PM CDT documented in this encounter Results Not on filedocumented in this encounter Insurance Payer Benefit Plan / Subscriber ID Effective Phone Address T [facility] Group Dates [employer] [id number] 2019-Viola [address] B[address] Medic aid [facility] [place] [facility] [place] [phone] MANAGED MEDICAID [place] documented as of this encounter
--- OUTSIDE RECORDS SUMMARY | 2019-11-04 21:32 | XMS REPORT | Summary of Care ---
:1990 Author Organization [facility] Address [address] [place] [address] Care Team Providers Name Role Phone Eduardo Espinoza Primary Care Provider Reason for Visit Auth/Cert Status Reason Specialty Diagnoses / Procedures Referred By Leigha jerez Referred To Contact Radiology [facility] X-[facility] [address] [place] [address] Phone: Fax: Encounter Details Date Type Department Care Team Description 11/02/2019 Hospital Encounter [facility] Leigha Membreno FNP Arrived [facility] [address] [facility] [address] valentin Mejia[address] [place] [phone] [place] [address] [phone] [address] Allergies No Known Allergiesdocumented as of this encounter (statuses as of 11/03/2019) Medications Medication Sig Dispensed Refills Start Date [...] as of this encounter (statuses as of 11/03/2019) Active Problems Problem Noted Date 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 documented as of this encounter Last Filed Vital Signs Not on filedocumented in this encounter Plan of Treatment Date Type Specialty Care Team Description 11/05/2019 Office Visit Obstetrics & Gynecology Radha Benoit MD [address] [place], [place] [address] [address] 02/28/2020 Office Visit Obstetrics & Gynecology Emma Ba PA-C [address] [place] [phone] Name Type Priority Associated Diagnoses Date/Ti me XR KUB IMAGING STAT Suprapubic pain 11/02/2019 5:58 PM CDT Flank pain Health Maintenance Due Date Last Done Comments [...] Name Priority Date/Time Associated Diagnosis Comme nts XR KUB STAT 11/02/2019 5:58 PM CDT Suprapub ic pain Flank pain Procedure Note - [facility], Radia nt Results Inft User - 11/02/2019 6:35 PM CDT EXAM: XR KUB 11/02/2019 5:38 PM. INDICATION: 29 years-old Fem geraldo, with suprapubic and flank pain , hx of recurrent stones. COMPARISON: None.. TECHNIQUE: Frontal radiograp h of the abdomen and pelvis, one image was provided. FINDINGS: The bowel gas pattern is unr emarkable without luminal distention or evidence of obstruction. Mix ed stool and gas is in the colon and rectum. No cholelithiasis and no sto ne in the past of ureters are seen. No abnormal calcifications. Surgical clips of prior cholecystectomy are noted. IMPRESSION 1. Nonobstructive bowel gas pattern. No nephrolithiasis was seen. Preliminary Report Dictated by Resident: Eyal Harris documented in this encounter Results Not on filedocumented in this encounter Visit Diagnoses Diagnosis Suprapubic pain Abdominal pain, other specified site Flank pain Abdominal pain, unspecified site documented in this encounter Insurance Payer Benefit Plan / Subscriber ID Effective Phone Address T ype Group Dates [employer] [id number] 2019-Prese [address] B[address] Medic [place] [phone] MA[place] MEDICA[place] documented as of this encounter
--- OUTSIDE RECORDS SUMMARY | 2019-11-04 21:32 | XMS REPORT | Summary of Care ---
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 [address] [address] Reason for Visit Reason Comments Kidney Problem possible kidney infection Auth/Cert Status Reason Specialty Diagnoses / Procedures Referred By C ontact Referred To Contact Radiology Ad[facility] X-Ray [address] [place] [address] Phone: Fax: Encounter Details Date Type Department Care Team Description 11/02/2019 [facility] Tyler Gutierrez, CUSTOMER SUPPORT ASSISTANT [address] [address] Suprapubic pain (Primary Dx); [facility] Provider, [facility] Flank pain; [address] [place] [address] Allergies No Known Allergiesdocumented as of this encounter (statuses as of 11/04/2019) Medications Medication Sig Dispensed Refills Start Date [...] as of this encounter (statuses as of 11/04/2019) Active Problems Problem Noted Date 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 Rastafari preference: Mormon Family History Problem Relation Age [...] of the visit time. If applicable, the [facility] database was accessed to review any controlled substance prescription claims data. The [employer] prescription claims data in [employer] was reviewed to assess patient compliance with the medication treatment plan. documented in this encounter Miscellaneous Notes Addendum Note - Komal Gutierrez FNP - 11/02/2019 4:40 PM CDT Addended by: LAYTON GUTIERREZ DNP-KOMAL HOYOS on: 11/04/2019 02:49 PM Modules accepted: Orders ddendum Note - Paxton Gill MA - 11/02/2019 4:40 PM CDT Addended by: PAXTON IGLL MA on: 11/02/2019 05:11 PM Modules accepted: Orders documented in this encounter Plan of Treatment Date Type Specialty Care Team Description 11/05/2019 Telemedicine Visit Obstetrics & Gynecology Lise Benoit MD [address] [place] [address] DRAfshin [facility] [address] [place], [place] [address] 02/28/2020 Office Visit Obstetrics & Gynecology Emma Ba PA-C [address] [address] Health Maintenance Due Date Last Done Comments VARICELLA VACCINES ( - 1989 2-dose childhood series) Depression Screening 2000 DTaP,Tdap,and Td Vaccines ( - 07/01/2007 Tdap) PAP SMEAR 2009 INFLUENZA VACCINE (#1) 2019 12/01/2018 PNEUMOCOCCAL 0-64 YEARS COMBINED Aged Out No longer eligible based on SERIES patient's age to complete this topic documented as of this encounter Procedures Procedure Name Priority Date/Time Associated Diagnosis Comme nts URINE CULTURE Routine 11/02/2019 5:11 PM Dysuria Results for this CDT procedure are i n the results section . documented in this encounter Results XR KUB (11/02/2019 5:58 PM CDT) Specimen Impressions Performed At Nonobstructive bowel gas pattern. No nep hrolithiasis was seen. PACS/VR/DOSE Preliminary Report Dictated by Resident: Eyal Harris I, Nkechi Blanco MD., have reviewed this stud y and agree with the above report. Narrative Performed At EXAM: XR KUB 11/02/2019 5:38 PM. PACS/VR/DOSE INDICATION: 29 years-old Female, with vigil prapubic and flank pain , hx of recurrent stones. COMPARISON: None.. TECHNIQUE: Frontal radiograph of the abd omen and pelvis, one image was provided. FINDINGS: The bowel gas pattern is unremarkable wi thout luminal distention or evidence of obstruction. Mixed stool and gas is in the colon and rectum. No cholelithiasis and no stone in the pa st of ureters are seen. No abnormal calcifications. Surgical cli ps of prior cholecystectomy are noted. Procedure Note [facility], Radiant Results Inft User - 2019 7:51 AM CDT EXAM: XR KUB 11/02/2019 5:38 PM. INDICATION: 29 years-old Female, with vigil prapubic and flank pain , hx of recurrent stones. COMPARISON: None.. TECHNIQUE: Frontal radiograph of the abd omen and pelvis, one image was provided. FINDINGS: The bowel gas pattern is unremarkable wi thout luminal distention or evidence of obstruction. Mixed stool and gas is in the colon and rectum. No cholelithiasis and no stone in the pa st of ureters are seen. No abnormal calcifications. Surgical cli ps of prior cholecystectomy are noted. IMPRESSION Nonobstructive bowel gas pattern. No nep hrolithiasis was seen. Preliminary Report Dictated by Resident: Eyal Harris I, Nkechi Blanco MD., have revie wed this study and agree with the above report. Performing Organization Address City/State/Zipcode Phone Number PACS/VR/DOSE URINE CULTURE (11/02/2019 5:11 PM CDT) URINE CULTURE < 10,000 CFU/mL mixed [facility] aerobic organisms - SERVICES suggests endogenous microbial contamination Specimen Urine - URINE, CLEAN CATCH Performing Organization Address City/State/Zipcode Phone Number [facility] CLIA: [id number] [place] [address] [place] [address] documented in this encounter Visit Diagnoses Diagnosis Suprapubic pain - Primary Abdominal pain, other specified site Flank pain Abdominal pain, unspecified site Dysuria documented in this encounter Insurance Payer Benefit Plan / Subscriber ID Effective Phone Address T ype Group Dates [employer] [id number] 2019-Prese [address] [place] [id number] MANAGED [place] documented as of this encounter
[2019-11-04 21:54] LABS: Urine Blood TRACE (NEG); Urine Glucose NEGATIVE (NEG); Urine Protein NEGATIVE (NEG); Urine Specific Gravity 1.025 (1.005-1.030); Urine pH 5.5 (5.0-7.0)
[2019-11-04] MEDS ORDERED: NA CHLORIDE 0.9% 1,000 ML ONE (22:15)
[2019-11-04 22:25] LABS: Basophils % 0.3 % (0-1.3); Hematocrit 40.5 % (36.0-45.0); Lymphocytes % 24.2 % (15.3-44.8); MPV 8.4 fL (7.6-11.3); RBC Red Blood Cell Count 4.88 M/uL (3.86-4.86)
[2019-11-04 22:35] LABS: ALT/SGPT 44 U/L (12-78); AST/SGOT 16 U/L (15-37); Albumin 4.2 g/dL (3.4-5.0); Alkaline Phosphatase 87 U/L (45-117); BUN Blood Urea Nitrogen 13 mg/dL (7-18); Bicarbonate 23 mmol/L (21-32); Bilirubin Direct 0.1 mg/dL (0-0.2); Bilirubin Total 0.6 mg/dL (0.2-1.0); Glucose Level 118 mg/dL (74-106); Lipase 95 U/L (73-393); Potassium 3.7 mmol/L (3.5-5.1); Protein, Total 8.3 g/dL (6.4-8.2); Sodium Level 144 mmol/L (136-145)
[2019-11-04] MEDS ORDERED: KETOROLAC 30 MG/ML INJ ONE (23:14)
[2019-11-04 23:44] LABS: Urine Culture Reflex Order REFLEXED; Urine Mucus 1+ /HPF (NONE SEEN)
[2019-11-04 23:45] LABS: Urine Bacteria 20-50 /HPF (<20); Urine RBC <5 /HPF (NONE SEEN); Urine Urothelial Cells <5 /HPF (NONE SEEN)
--- NOTE | 2019-11-05 00:01 | EDPHYS ---
Physician Documentation [facility] Name: Steph Ramirez Age: 29 yrs Sex: Female : 1990 Arrival Date: 11/04/2019 Time: 21:31 Bed 19 Private MD: ED Physician Diego Benoit HPI: 11/03 21:51 This 29 yrs old Female presents to ER via Ambulatory with complaints of pkl Kidney Pain. 21:51 The patient complains of pain in the right flank. The pain radiates to the right lower pkl quadrant. Onset: The symptoms/episode began/occurred 1 month(s) ago, and became worse 4 day(s) ago. Patient said she has H/O kidney stone. 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 - Social history:: Smoking status: Patient denies any tobacco usage or history of. Patient/guardian denies using alcohol, street drugs. ROS: 21:51 Eyes: Negative for injury, pain, redness, and discharge, ENT: Negative for injury, pkl pain, and discharge, Neck: Negative for injury, pain, and swelling, Cardiovascular: Negative for chest pain, palpitations, and edema, Respiratory: Negative for shortness of breath, cough, wheezing, and pleuritic chest pain, Abdomen/GI: Negative for abdominal pain, nausea, vomiting, diarrhea, and constipation. 21:51 Back: Positive for flank pain, on the right. 21:51 : Positive for burning with urination. 21:51 MS/extremity: Negative for acute changes. 21:51 Skin: Negative for rash. 21:51 Neuro: Negative for altered mental status. Exam: 21:51 Head/Face: Normocephalic, atraumatic. Eyes: Pupils equal round and reactive to light, pkl extra-ocular motions intact. Lids and lashes normal. Conjunctiva and sclera are non-icteric and not injected. Cornea within normal limits. Periorbital areas with no swelling, redness, or edema. ENT: Nares patent. No nasal discharge, no septal abnormalities noted. Tympanic membranes are normal and external auditory canals are clear. Oropharynx with no redness, swelling, or masses, exudates, or evidence of obstruction, uvula midline. Mucous membranes moist. Neck: Trachea midline, no thyromegaly or masses palpated, and no cervical lymphadenopathy. Supple, full range of motion without nuchal rigidity, or vertebral point tenderness. No Meningismus. Chest/axilla: Normal chest wall appearance and motion. Nontender with no deformity. No lesions are appreciated. Cardiovascular: Regular rate and rhythm with a normal S1 and S2. No gallops, murmurs, or rubs. Normal PMI, no JVD. No pulse deficits. Respiratory: Lungs have equal breath sounds bilaterally, clear to auscultation and percussion. No rales, rhonchi or wheezes noted. No increased work of breathing, no retractions or nasal flaring. Abdomen/GI: Soft, non-tender, with normal bowel sounds. No distension or tympany. No guarding or rebound. No evidence of tenderness throughout. 21:51 Back: pain, that is moderate, of the right flank. 21:51 Musculoskeletal/extremity: Exam is negative for acute changes. 21:51 Skin: Exam negative for rash. 21:51 Neuro: Orientation: is normal, Mentation: is normal, Cranial nerves: grossly normal, Motor: is normal. Vital Signs: 21:35 BP 126 / 78; Pulse 75; Resp 16; Temp 98.2; Pulse Ox 98% ; Weight 69.4 kg; Height 5 ft. ll1 2 in. (157.48 cm); Pain 5/10; 23:00 BP 121 / 70; Pulse 70; Resp 19; Pulse Ox 99% ; Pain 5/10; rr5 11/04 00:20 BP 120 / 78; Pulse 79; Resp 16; Temp 99.1; Pulse Ox 99% ; Pain 3/10; rr5 11/03 21:35 Body Mass Index 27.98 (69.40 kg, 157.48 cm) ll1 MDM: 11/03 21:40 Patient medically screened. pkl 23:53 Data reviewed: vital signs, nurses notes, lab test result(s), radiologic studies, CT pkl scan. 23:56 ED course: Discussed lab. and CT Scan results with patient. Advised to follow up with pkl PCP in 2 weeks. Patient understood instructions. 11/03 21:50 Order name: Basic Metabolic Panel; Complete Time: 22:36 pkl 11/03 21:50 Order name: CBC with Diff; Complete Time: 22:36 pkl 11/03 21:50 Order name: Hepatic Function; Complete Time: 22:36 pkl 11/03 21:50 Order name: Lipase; Complete Time: 22:36 pkl 11/03 21:52 Order name: Urine Dipstick--Ancillary (enter results); Complete Time: 22:36 mw2 11/03 21:52 Order name: Urine --Ancillary (enter results); Complete Time: 22:36 mw2 11/03 21:50 Order name: IV Saline Lock; Complete Time: 22:03 pkl 11/03 21:50 Order name: Labs collected and sent; Complete Time: 22:04 pkl 11/03 22:31 Order name: CT Stone Protocol rr5 11/03 23:38 Order name: Urine Microscopic Only; Complete Time: 23:50 5 11/03 23:46 Order name: Urine Culture EDMS Administered Medications: 22:08 Drug: NS 0.9% 1000 ml Route: IV; Rate: 1000 ml; Site: right antecubital; rr5 23:10 Follow up: Response: No adverse reaction; IV Status: Completed infusion; IV Intake: rr5 1000ml 23:09 Drug: TORadol 30 mg Route: IVP; Site: right antecubital; rr5 11/04 00:00 Follow up: Response: No adverse reaction rr5 00:00 Drug: Rocephin - (cefTRIAXone) 1 grams Route: IVPB; Infused Over: 30 mins; Site: right rr5 antecubital; 00:22 Follow up: Response: No adverse reaction; IV Status: Completed infusion; IV Intake: 36oadx2 Disposition: 11/05/19 00:00 Discharged to Home. Impression: Right flank pain. Urinary tract infection. - Condition is Stable. - Prescriptions for Augmentin 875- 125 mg Oral Tablet - take 1 tablet by ORAL route every 12 hours for 10 days; 20 tablet. Zofran 4 mg Oral Tablet - take 1 tablet by ORAL route every 12 hours As needed; 10 tablet. - Medication Reconciliation Form, Thank You Letter, Antibiotic Education, Prescription Opioid Use form. - Follow up: Private Physician; When: 10 - 14 days; Reason: Re-evaluation by your physician. - Problem is new. - Symptoms are unchanged. Signatures: Dispatcher [employer] EDMS Diego Benoit MD MD pkl Maurice Dela Cruz RN RN rr5 Valeriy Galan RN RN ll1 Corrections: (The following items were deleted from the chart) 00:23 00:00 11/05/2019 00:00 Discharged to Home. Impression: Right flank pain. Urinary tract rr5 infection. Condition is Stable. Forms are Medication Reconciliation Form, Thank You Letter, Antibiotic Education, Prescription Opioid Use. Follow up: Private Physician; When: 10 - 14 days; Reason: Re-evaluation by your physician. Problem is new. Symptoms are unchanged. pkl
--- NOTE | 2019-11-05 00:01 | ER ---
Nurse's Notes [facility] Name: Steph Ramirez Age: 29 yrs Sex: Female : 1990 Arrival Date: 11/04/2019 Time: 21:31 Bed 19 Private MD: Diagnosis: Right flank pain. Urinary tract infection Presentation: 11/03 21:35 Chief complaint: Patient states: Right flank pain since Friday. Went to urgent care ll1 Friday, given pyridium only. + dysuria. No fever. Slight nausea. Coronavirus screen: Client denies travel out of the [place] in the last 14 days. At this time, the client does not indicate any symptoms associated with coronavirus-19. Ebola Screen: Patient denies travel to an Ebola-affected area in the 21 days before illness onset. Initial Sepsis Screen: Does the patient meet any 2 criteria? No. Patient's initial sepsis screen is negative. Risk Assessment: Do you want to hurt yourself or someone else? Patient reports no desire to harm self or others. Onset of symptoms was October 31, 2019. 21:35 Method Of Arrival: Ambulatory ll1 21:35 Acuity: SLOAN 3 ll1 22:30 Initial Sepsis Screen: Does the patient have a suspected source of infection? Yes: rr5 Dysuria/Frequency/Urgency/UTI. 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 - Social history:: Smoking status: Patient denies any tobacco usage or history of. Patient/guardian denies using alcohol, street drugs. Screenin:11 Abuse screen: Denies threats or abuse. Denies injuries from another. Nutritional rr5 screening: No deficits noted. Tuberculosis screening: No symptoms or risk factors identified. Fall Risk IV access (20 points). Total Schroeder Fall Scale indicates No Risk (0-24 pts). Assessment: 22:00 General: Appears in no apparent distress. comfortable, Behavior is calm, cooperative, rr5 appropriate for age. Pain: Complains of pain in right flank Pain radiates to right upper quadrant and right lower quadrant Pain currently is 5 out of 10 on a pain scale. Quality of pain is described as aching, Pain began gradually, Is intermittent. Neuro: Level of Consciousness is awake, alert, obeys commands, Oriented to person, place, time, situation. Cardiovascular: Capillary refill < 3 seconds Patient's skin is warm and dry. Respiratory: Airway is patent Respiratory effort is even, unlabored, Respiratory pattern is regular, symmetrical. GI: Reports lower abdominal pain, upper abdominal pain. : Reports pain in right flank(s), history of kidney stone. 22:00 EENT: No signs and/or symptoms were reported regarding the EENT system. Derm: Skin is rr5 intact, is healthy with good turgor, Skin temperature is warm. Musculoskeletal: Circulation, motion, and sensation intact. Capillary refill < 3 seconds. 23:00 Reassessment: Patient appears in no apparent distress at this time. Patient is alert, rr5 oriented x 3, equal unlabored respirations, skin warm/dry/pink. complaint of constant right flank pain. ED provider aware with order and carried out. 11/04 00:21 Reassessment: Patient appears in no apparent distress at this time. Patient is alert, rr5 oriented x 3, equal unlabored respirations, skin warm/dry/pink. discharge instruction given and explained without complaints made. Patient states symptoms have improved. Vital Signs: 11/03 21:35 BP 126 / 78; Pulse 75; Resp 16; Temp 98.2; Pulse Ox 98% ; Weight 69.4 kg; Height 5 ft. ll1 2 in. (157.48 cm); Pain 5/10; 23:00 BP 121 / 70; Pulse 70; Resp 19; Pulse Ox 99% ; Pain 5/10; rr5 11/04 00:20 BP 120 / 78; Pulse 79; Resp 16; Temp 99.1; Pulse Ox 99% ; Pain 3/10; rr5 11/03 21:35 Body Mass Index 27.98 (69.40 kg, 157.48 cm) ll1 ED Course: 11/03 21:31 Patient arrived in ED. cl3 21:37 Triage completed. ll1 21:38 Arm band placed on Patient placed in an exam room, on a stretcher. ll1 21:40 Diego Benoit MD is Attending Physician. pkl 21:41 Dela Cruz, Maurice, RN is Primary Nurse. rr5 21:58 Initial lab(s) drawn, by me, sent to lab. Inserted saline lock: 20 gauge in right jp3 antecubital area, using aseptic technique. Blood collected. 21:58 Patient maintains SpO2 saturation greater than 95% on room air. jp3 22:03 Call light in reach. Side rails up X 1. Verbal reassurance given. Pulse ox on. NIBP on. jp3 22:54 CT Stone Protocol In Process Unspecified. EDMS 11/04 00:21 No provider procedures requiring assistance completed. IV discontinued, intact, rr5 bleeding controlled, No redness/swelling at site. Pressure dressing applied. Administered Medications: 11/03 22:08 Drug: NS 0.9% 1000 ml Route: IV; Rate: 1000 ml; Site: right antecubital; rr5 23:10 Follow up: Response: No adverse reaction; IV Status: Completed infusion; IV Intake: rr5 1000ml 23:09 Drug: TORadol 30 mg Route: IVP; Site: right antecubital; rr5 11/04 00:00 Follow up: Response: No adverse reaction rr5 00:00 Drug: Rocephin - (cefTRIAXone) 1 grams Route: IVPB; Infused Over: 30 mins; Site: right rr5 antecubital; 00:22 Follow up: Response: No adverse reaction; IV Status: Completed infusion; IV Intake: [id number] Intake: 11/03 23:10 IV: 1000ml; Total: 1000ml. rr5 11/04 00:22 IV: 10ml; Total: 1010ml. rr5 Outcome: 00:00 Discharge ordered by . nargis 00:21 Discharged to home ambulatory. rr5 00:21 Condition: stable 00:21 Discharge instructions given to patient, Instructed on discharge instructions, follow up and referral plans. medication usage, Demonstrated understanding of instructions, follow-up care, medications, Prescriptions given X 2. 00:23 Patient left the ED. rr5 Signatures: Dispatcher [employer] EDSC Diego Benoit MD MD pkl Pisarski, Jacob 3 Maurice Dela Cruz, RN RN rr5 Gerry Galan 3 Valeriy Galan RN RN ll1 Corrections: (The following items were deleted from the chart) 00:21 00:20 BP 120 / 78; Pulse 79bpm; Resp 16bpm; Pulse Ox 99%; Temp 99.1F; rr5 rr5
[2019-11-05] MEDS ORDERED: CEFTRIAXONE/SWI 1gm 1 GM/10 ML SYR ONE (00:08)
--- NOTE | 2019-11-05 10:10 | RAD REPORT ---
EXAM DESCRIPTION: CT Stone Protocol CLINICAL HISTORY: 29 years Female FLANK PAIN TECHNIQUE: Contiguous axial images obtained through the abdomen and pelvis without IV contrast. Yamileth nal and sagittal reformatted images provided. This CT exam was performed according to our departmental dose-optimization program, which includes on e or more of the following dose reduction techniques: automated exposure control, adjustment of the m A and/or kV according to patient size, and/or use of iterative reconstruction technique. COMPARISON: No prior exams provided for comparison. FINDINGS: There are no renal, ureteral, or bladder calculi. There is no hydronephrosis or perinephri c stranding on either side. The appendix is normal. There is no bowel inflammation, obstruction, free intraperitoneal air, or asc ites. Prior cholecystectomy without biliary dilatation. The lung bases, unenhanced liver, pancreas, spleen, adrenal glands, kidneys, uterus, ovaries, urinary bladder, and osseous structures are normal. Small fat-containing umbilical hernia does not appear inflamed. IMPRESSION: No urolithiasis or appendicitis. No acute abdominal or pelvic findings. Electronically signed by: Nataliya Wynn MD 11/04/2019 11:27 PM CDT Due to temporary technical issues with the PACS/Fluency reporting system, reports are being signed by the in house radiologist without review as a courtesy to ensure prompt reporting. The interpreting r adiologist is fully responsible for the content of the report.
[2019-11-06 14:24] VITALS: O2SAT 99
[2019-11-06 14:26] VITALS: BP 120/78; TEMP 99.1
== END 2019-11-05 00:23 | disposition home or self-care (01) ==
LOC: ER 21:28
DX: N39.0 Urinary tract infection, site not specified (principal)
CPT/HCPCS: 96365; 96361; 87088; 85025; 87086; 80048; 36415; 81025; 80076; 83690; 76377; 74176; 96375; 99284; J7030; 81003; 81015

== ENCOUNTER 2020-01-11 18:26 | Emergency (ER) | payer MEDICAID ==
--- OUTSIDE RECORDS SUMMARY | 2020-01-11 18:29 | XMS REPORT | Summary of Care ---
:1990 Author Organization [facility] Address [address] [place] [address] Care Team Providers Name Role Phone Eduardo Espinoza Primary Care Provider Reason for Visit Reason Comments Rx Concern/Question Encounter Details Date Type Department Care Team Description 11/04/2019 Telephone [facility] Family Provider, Pratik Urgent R x Concern/Question [address] [place] [address] Allergies No Known Allergiesdocumented as of this encounter (statuses as of 11/05/2019) Medications Medication Sig Dispensed Refills Start Date [...] as of this encounter (statuses as of 11/05/2019) Active Problems Problem Noted Date 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 She does not want the referral. elephone Encounter - Silvana Membreno FNP - 11/04/2019 2:54 PM CDTI just did a result note on her because this call was routed to me...her urine culture was unremarkable, thus i made a referral to POLE LIFT OPERATOR for further eval and tx. Please help secure appointment with OBGYNas soon as possible. elephone Encounter - Lillian Mccray - 11/04/2019 11:51 AM CDTPatient is calling and is requesting to know what antibiotic should she be taking, please call patient back in regards To this encounter. documented in this encounter Plan of Treatment Date Type Specialty Care Team Description 11/05/2019 Telemedicine Visit Obstetrics & Gynecology Lise Benoit MD Arrived [address] [place] [address] DRAfshin Roberto [address] [place], [place] [address] 02/28/2020 Office Visit Obstetrics & Gynecology Emma Ba PA-C 146 [facility] [address] [place] [address] Health Maintenance Due Date Last Done [...] / Subscriber ID Effective Phone Address [employer] Dates [employer] [id number] 2019-Viola DODD Medic [facility] [facility] [place] [id number] MANAGED MEDICAID [place] documented as of this encounter
--- OUTSIDE RECORDS SUMMARY | 2020-01-11 18:29 | XMS REPORT | Continuity of Care Document ---
:1990 Author Organization [facility] t Address [address] [place] [address] Care Team Providers Name Role Phone Franko Benoit MD Attending Clinician Doctor Unassigned, Name Attending Clinician Unavailable Payers Payer Name Policy [...] Date/Time Type Type Clinicians Facility Department ID 2019-11-30 2019-11-30 Office Lise eBnoit [facility] [id number] 10:39:16 12:51:09 Visit Franko Jimenez [id number] [place] [id number] [place]ay[place] [id number] [address] 2019-11-30 2019-11-30 Orders Doctor SEGURA [id number] 00:00:00 00:00:00 Only UnassTERRY olivas [id number] [place] [facility] [id number] [id number] Results This patient has no known results.
--- OUTSIDE RECORDS SUMMARY | 2020-01-11 18:30 | XMS REPORT | Summary of Care ---
:1990 Author Organization [facility] Address [address] [place] [address] Care Team Providers Name Role Phone Eduardo Espinoza Nena Primary Care Provider Reason for Visit Reason Comments INTRAUTERINE DEVICE Paragard insertion (Routine) Status Reason Specialty Diagnoses / Referred By Referred To Procedures Contact Contact New Request Obstetrics & Diagnoses Suprapubic pain Dysuria Anene, Silvana, Gynecology Procedures CONSULT/REFERRAL [facility] [address] [address] Encounter Details Date Type Department Care Team Description 11/30/2019 Office Visit [facility] Women's Benoit, Lise hester MD Encounter for Healthcare- [address] insertion of ParaGard [address] [place] [facility] [place] [address] DR[address] LUGO (Primary Dx) Drive, [address] 7[address] [phone] Allergies No Known Allergiesdocumented as of this encounter (statuses as of 11/30/2019) Medications Medication Sig Dispensed Refills Start Date End Date Status ferrous sulfate 325 Take 1 tablet 60 tablet 2 06/25/2019 Active mg (65 mg iron) by mouth 2 tabletIndications: (two) times High-risk daily. in third [...] mg 0 10/13/2019 Ac tive disintegrating tablet miSOPROStoL 200 mcg Take 1 tablet 2 tablet 0 11/05/201911/29 Discontinued tabletIndications: by mouth 20 ( Patient Counseling for SEE-INSTRUCTIO Reported) control, NS. 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 08/23/2019 Routine follow-up 07/22/2019 08/23/2019 IUGR (intrauterine growth restriction) affecting care of 07/22/2019 mother Liveborn , of rizo , born in hospital by 06/24/2019 07/22/2019 vaginal delivery Poor growth affecting management of mother in third 07/22/2019 trimester High-risk in third trimester 05/04/2019 0 07/22/2019 37 weeks gestation of 05/04/2019 07/22/19 20 documented as of this encounter (statuses as of 11/30/2019) Social History Tobacco Use Types Packs/Day Years Used Date Never Smoker Smokeless Tobacco: Never Used Alcohol Use Drinks/Week oz/Week Comments Not Currently Sex Assigned at Date Recorded Not on file COVID-19 Exposure Response Date Recorded In the last month, have you been in contact with No / Unsure 11/30/2019 10:38 AM CDT someone who was confirmed or suspected to have Coronavirus / COVID-19? documented as of this encounter Last Filed Vital Signs Vital Sign Reading Time Taken Comments Blood Pressure 112/63 11/30/2019 11:27 AM CDT Pulse 77 11/30/2019 11:27 AM CDT Temperature 36.7 C (98.1 F) 11/30/2019 11:27 AM CDT Respiratory Rate 18 11/30/2019 11:27 AM CDT Oxygen Saturation - - Inhaled Oxygen Concentration - - Weight 71.7 kg (158 lb) 11/30/2019 11:27 AM CDT Height 157.5 cm (5' 2") 11/30/2019 11:27 AM CDT Body Mass Index 28.9 11/30/2019 11:27 AM CDT documented in this encounter Patient Instructions Patient InstructionsFabrice Arellano Etienne - 11/30/2019 10:30 AM CDT Patient Education Control: IUD (Intrauterine [...] history of breast cancer (progestin IUD only) [employer] last reviewed this educational content on 05/01/201619991196-1905 [employer]. [address] [place] [address]1976. All rights reserved. This information is not intended as a substitute for professional medical care. Always follow your healthcare professional's instructions. documented in this encounter Progress Notes Lise Benoit MD - 11/30/2019 10:30 AM CDT IUD INSERTION PROCEDURE NOTE Pap smear: Will ask patient at next visit GC/CT within 3 months: 06/17/2019 neg H/H: 06/25/2019 UPT: negative Preoperative Diagnoses: Steph Ramirez is a 29 year old female Desires LARC The risks, benefits and alternatives were discussed. The patient voiced her understanding. She wished to proceed and an informed consent was obtained. Patient has been identified with name and and will be undergoing IUD placement. Indications for Paragard IUD are: Desires LARC. Patient, procedure and site have been confirmed by the following clinicians: Dr. Benoit. Timeout performed by Dr. Benoit at 10:43 AM Procedure: The patient is placed on the exam table in a dorsal lithotomy position. Vaginal speculuminserted. The cervix was cleansed with Betadine x 3. The rest of the exam was done under direct visualization as Dr. Mario was performing the ultrasound transabdominally. Uterus sounded to 7.5 cm. IUD inserted without difficulty. String visible and trimmed to 3 cm. The patient tolerated the procedure well and there were no complications. Post-procedure instructions given. Patient verbalized understanding. Findings Successful placement of Paragard IUD, see USG report Assessment Successful placement of Paragard IUD, ultrasound shows intrauterine fundal position. Plan Encounter for insertion of Paragard IUD Comment: Reviewed counseling as below. Patient expressed understanding of risks including that of uterine perforation, IUD malposition and expulsion, along with risk of migration of IUD into the abdominal cavity requiring surgery for removal. These risks could result in additional expense to the patient. The patient desires to proceed with IUD insertion. Negative UPT and no recent unprotected intercourse. Understands need to use back up method for contraception for next 7 days. Understands needs replacement or removal in 10 years. Plan: TEST, US SUBSTATION MANAGER TRANSVAGINAL (In Clinic) Encounter for female control Comment: String check in 4 weeks. Strings trimmed to 3 cm. Plan: US SUBSTATION MANAGER TRANSVAGINAL (In Clinic) - confirmed placement of IUD with ultrasound. Return to clinic in 4 week string check. Discussed treatment options. Medications as ordered. Reviewed patient instructions and provided printed copy. Paragard Lot #: [id number] Expiration date: 08/2025 Scribe's Attestation IIsaiah , am scribing for, and in the presence of, Lise Benoit MD who performed the services described here-in. Isaiah Giles, November 30, 2019, 10:43 AM Physician's Attestation I have seen and examined the patient and agreed with the note above Lise Benoit MD 11/30/2019 1:24 PM documented in this encounter Plan of Treatment Date Type Specialty Care Team Description 01/03/2020 Office Visit Obstetrics & Gynecology Radha Benoit MD [address] [place], [place] [address] [address] [phone] 02/28/2020 Office Visit Obstetrics & Gynecology Emma Ba PA-C [address] [place] [address] [phone] Health Maintenance Due Date Last Done [...] Name Priority Date/Time Associated Diagnosis Comme nts POCT TEST Routine 11/30/2019 Encounter for inserti on Results for this of ParaGard IUD procedure ar e in the results section . documented in this encounter Results POCT TEST (11/30/2019) Pathologist Sig nature POCT PREG Negative On board controls acceptable Yes with C Line POCT PREG LOT # POCT PREG TEST DATE Specimen Urine - URINE, CLEAN CATCH documented in this encounter Visit Diagnoses Diagnosis Encounter for insertion of ParaGard IUD - Primary documented in this encounter Administered Medications Medication Order MAR Action Action Date Dose Rate Site copper (PARAGARD T Given 11/30/2019 1:26 1 Intra Uterine Abdomen 380A) IUD 1 Intra PM CDT Device Uterine Device 1 Intra Uterine Device, Intrauterine, ONCE, 1 dose, 11/30/19 at 1430, Routine documented in this encounter Insurance Payer Benefit Plan / Subscriber ID Effective Phone Address T ype Group Dates [employer] [id number] 2019-Pre[address] Medic [place] [id number] MA[place] MED[place] documented as of this encounter
--- OUTSIDE RECORDS SUMMARY | 2020-01-11 18:30 | XMS REPORT | Summary of Care ---
:1990 Author Organization [facility] Address [address] [place] [address] Care Team Providers Name Role Phone Eduardo Espinoza Primary Care Provider Reason for Visit Reason Comments F/U Encounter Details Date Type Department Care Team Description 11/05/2019 Telemedicine Visit [facility] Women's Lise Benoit, Counseling for Healthcare- [address] intrauterine device [address] [facility] (Primary Dx) [address], [address] [facility] [address] [place] [address] [phone] Allergies No Known Allergiesdocumented as of this [...] (three) times Dysuria daily for 3 days. miSOPROStoL 200 mcg Take 1 tablet by 2 tablet 0 11/05/2019 Active tabletIndications: mouth Counseling for SEE-INSTRUCTIONS control, intrauterine . Take one tab device the night before and one tab the morning of procedure documented as of this encounter (statuses as [...] encounter Progress Notes Lise Benoit MD - 11/05/2019 10:45 AM CDT TELEHEALTH NOTE Verbal consent obtained from Patient: Steph Ramirez for telehealth services provided below due to COVID-19 crises. Communication with patient was conducted via Video Call. Location of Patient: Home Location of Provider: Office Date of Service: 11/05/2019 Chief Complaint: control HPI: Steph Ramirez is a 29 year old female here to discuss about getting a paragard IUD. Patient had IUD insertion on 08/23/2019, which was aborted due to uterine perforation at that time andpatient got Nexplanon inserted. Patient then had Nexplanon removed on 10/22/2019 due to vaginal bleed ing. Patient desires IUD again. Had paragard IUD twice and wants Paragard IUD. Reports that she has kidney infection, diagnosed yesterday in ER - received IV abx and on antibiotics for the next 10 days. Feels better since been on antibiotics LMP ~ 10/21/2019 Past Medical History: Diagnosis Date Heart palpitations IBS (irritable bowel syndrome) MEDICATIONS: No outpatient medications have been marked as taking for the 11/05/19 encounter (Appointment) with Lise Benoit MD. ROS Denies fever, chills, chest pain, coughing, SOB, constipation, diarrhea, nausea, vomiting. Pain score: 0 TELEHEALTH EXAM Alert and answering/asking questions appropriately ASSESSMENT/ PLAN Steph Ramirez is a 29 year old female with PMH as above presenting with: Counseling for control, intrauterine device (primary encounter diagnosis) Comment: Risks include but are not limited to uterine perforation during insertion (03/999) which may require surgery, bleeding, infection, IUD embedded in the uterus which may require surgery, expulsion, abnormal uterine bleeding, pelvic/abdominal pain. For the copper IUD, long duration of use and effective as emergency contraception. However, the copper IUD may cause heavier menstrual bleeding and dysmenorrhea. Plan: RTC for Paragard IUD insertion, Misoprostol for cervical ripening After visit summary (AVS ) documentation will be available through [employer] for this encounter. A total of 15 minutes was spent on the video call and chart review. Lise Benoit MD 11/05/2019 11:34 AM documented in this encounter Plan of Treatment Date Type Specialty Care Team Description 02/28/2020 Office Visit Obstetrics & Gynecology Emma Ba PA-C [address] [place] [address] [phone] Health Maintenance Due Date Last Done [...] filedocumented in this encounter Visit Diagnoses Diagnosis Counseling for control, intrauteri ne device - Primary General counseling for initiation of oth er contraceptive measures documented in this encounter Insurance Payer Benefit Plan / Subscriber ID Effective Phone Address T e Group Dates [employer] [id number] 2019-[address] [address] Medic [facility] [place] [address] MANAG[place] MEDICAID [place] documented as of this encounter
--- OUTSIDE RECORDS SUMMARY | 2020-01-11 18:30 | XMS REPORT | Summary of Care ---
:1990 Author Organization [facility] - Health Address [address] [place] [address] Care Team Providers Name Role Phone Eduardo Espinoza Primary Care Provider Encounter Details Date Type Department Care Team Description 11/30/2019 Orders Only [facility] Doctor Unassigned, No [address] [facility] [place] [address] [address] [place] [address] Allergies No Known Allergiesdocumented as of this encounter (statuses as of 12/08/2019) Medications Medication Sig Dispensed Refills Start Date [...] mg 0 10/13/2019 Ac tive disintegrating tablet documented as of this encounter (statuses as of 12/08/2019) Active Problems Problem Noted Date Obesity (BMI 30-39.9) 05/19/2019 documented as of this encounter (statuses as of 12/08/2019) Resolved Problems Problem Noted Date Resolved Date [...] as of this encounter (statuses as of 12/08/2019) Social History Tobacco Use Types Packs/Day Years [...] Visit Obstetrics & Gynecology Radha Benoit MD [address] [place] [address] 02/28/2020 Office Visit Obstetrics & Gynecology Emma Ba PA-C [address] [place] [address] [phone] Health Maintenance Due Date Last Done [...] Name Priority Date/Time Associated Diagnosis Comme nts CONSENT FOR CONTRACEPTION Routine 11/30/2019 12:01 AM CDT documented in this encounter Results Not on filedocumented in this encounter Insurance Payer Benefit Plan / Subscriber ID Effective Phone Address T formerly [facility] Group Dates [employer] [id number] 2019-Viola DODD Medic [place] [phone] MA[place] MEDICAID [place] documented as of this encounter
--- OUTSIDE RECORDS SUMMARY | 2020-01-11 18:30 | XMS REPORT | Summary of Care ---
:1990 Author Organization [facility] Address [address] [place] [address] Care Team Providers Name Role Phone Eduardo Espinoza Primary Care Provider Reason for Visit Reason Comments Rx Concern/Question Notification Encounter Details Date Type Department Care Team Description 11/29/2019 Telephone [facility] Women's BenoitLise MD Rx Concern/Question; Healthcare- [address] Notification [address] [place] [address] DR[address] Mendez, [address] [address] [phone] Allergies No Known Allergiesdocumented as of this encounter (statuses as of 11/29/2019) Medications Medication Sig Dispensed Refills Start Date [...] by vaginal delivery Nitrofurantoin&Nit. TAKE 1 CAPSULE BY 0 10/09/2019 Active Macrocryst 100 mg MOUTH EVERY 12 capsule HOURS FOR 5 DAYS ondansetron 8 mg 0 10/13/2019 Ac tive disintegrating tablet miSOPROStoL 200 mcg Take 1 tablet by 2 tablet 0 11/05/2019 Active tabletIndications: mouth Counseling for SEE-INSTRUCTIONS. 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 Patient states that she already rescheduled her appointment to tomorrow. Patient states that she will remember to take the medication as prescribed. Sandrine Pa RN 11/29/2019 4:41 PM Telephone Encounter - Macy Castaneda - 11/29/2019 8:40 AM CDTPatient is calling stating that she is scheduled to have her IUD placed but is stating that she did not take the medication that she was suppose to take last night. Patient is wanting to know if she needs to go ahead and take the medication or if she needs to reschedule. Patient is requesting a call back. documented in this encounter Plan of Treatment Date Type Specialty Care Team Description 11/30/2019 Office Visit Obstetrics & Gynecology Radha Benoit MD [address] [place] [address] [address] 02/28/2020 Office Visit Obstetrics & Gynecology Emma Ba PA-C [address] [place] [phone] Health Maintenance Due Date Last Done [...] / Subscriber ID Effective Phone Address [facility] Group Dates [employer] [id number] 2019-Viola DODD Medic [facility] [place] [phone] MANAGED MEDICAID [place] documented as of this encounter
--- OUTSIDE RECORDS SUMMARY | 2020-01-11 18:30 | XMS REPORT | Summary of Care ---
:1990 Author Organization [facility] - [facility] Address [address] [place] [address] Care Team Providers Name Role Phone Eduardo Espinoza Nena Primary Care Provider Reason for Visit Reason Comments INTRAUTERINE DEVICE Paragard insertion (Routine) Status Reason Specialty Diagnoses / Referred By Referred To Procedures Contact Contact New Request Obstetrics & Diagnoses Suprapubic pain Dysuria Anene, Silvana, Gynecology Procedures CONSULT/REFERRAL PSYCHIATRIC ARNP DOUBLE NEEDLE STITCHER [address] [address] Encounter Details Date Type Department Care Team Description 11/30/2019 Office Visit [facility] Women's Benoit, Lise hester MD Encounter for Healthcare- [address] insertion of ParaGard [address] [place] [address] DR[address] LUGO (Primary Dx) Drive, [address] [address] [phone] Allergies No Known Allergiesdocumented as of this [...] history of breast cancer (progestin IUD only) [employer] last reviewed this educational content on 05/01/201619995830-3537 [employer]. [address] [place] [address]. All rights reserved. This information is not [...] removal in 10 years. Plan: TEST, US RN ADMISSION TRANSVAGINAL (In Clinic) Encounter for female control Comment: String check in 4 weeks. Strings trimmed to 3 cm. Plan: US RN ADMISSION TRANSVAGINAL (In Clinic) - confirmed placement of IUD with ultrasound. Return to clinic in 4 week string check. Discussed treatment options. Medications as ordered. Reviewed patient instructions and provided printed copy. Paragard Lot #: [id number] Expiration date: 08/2025 Scribe's Attestation IIsaiah , [...] Obstetrics & Gynecology Radha Benoit MD [address] [place], [place] [address] [address] [phone] 02/28/2020 Office Visit Obstetrics & Gynecology Emma Ba PA-C [address] [place] [address] [phone] Health Maintenance Due Date Last Done [...] Address T ype Group Dates [employer] [id number] 2019-Prese [address] Medic [place] [phone] MANAGED MEDICA[place] documented as of this encounter
[2020-01-11 20:53] LABS: Absolute Lymphocytes (CBC) 2.4 K/uL (0.7-4.9); Basophils % 0.8 % (0-1.3); Hematocrit 42.8 % (36.0-45.0); RBC Red Blood Cell Count 5.15 M/uL (3.86-4.86)
[2020-01-11 20:54] LABS: Urine Glucose NEGATIVE (NEG); Urine Specific Gravity 1.025 (1.005-1.030)
[2020-01-11 20:55] LABS: Urine Blood TRACE (NEG); Urine Protein NEGATIVE (NEG); Urine pH 5.5 (5.0-7.0)
[2020-01-11 21:09] LABS: Urine Bacteria <20 /HPF (<20); Urine RBC <5 /HPF (NONE SEEN)
[2020-01-11 21:10] LABS: Urine Culture Reflex Order NOT NEEDED
[2020-01-11 21:14] LABS: Albumin 4.2 g/dL (3.4-5.0); Bilirubin Direct 0.1 mg/dL (0-0.2); Bilirubin Total 0.3 mg/dL (0.2-1.0); Protein, Total 9.1 g/dL (6.4-8.2)
--- NOTE | 2020-01-11 23:11 | ER ---
Nurse's Notes [facility] Name: Steph Ramirez Age: 29 yrs Sex: Female : 1990 Arrival Date: 01/11/2020 Time: 18:29 Bed 16 Private MD: Diagnosis: Upper abdominal pain, unspecified Presentation: 01/10 19:01 Chief complaint: Patient states: R flank pain radiating to the RLQ x 1 week. Denies ca1 fever. Denies urinary symptoms. Coronavirus screen: Client denies travel out of the [place] in the last 14 days. At this time, the client does not indicate any symptoms associated with coronavirus-19. The client reports previous COVID testing was negative. Date of collection: October 2019. Ebola Screen: Patient negative for fever greater than or equal to 101.5 degrees Fahrenheit, and additional compatible Ebola Virus Disease symptoms Patient denies exposure to infectious person. Patient denies travel to an Ebola-affected area in the 21 days before illness onset. No symptoms or risks identified at this time. Initial Sepsis Screen: Does the patient meet any 2 criteria? No. Patient's initial sepsis screen is negative. Does the patient have a suspected source of infection? No. Patient's initial sepsis screen is negative. Risk Assessment: Do you want to hurt yourself or someone else? Patient reports no desire to harm self or others. Onset of symptoms was January 11, 2020. 19:01 Method Of Arrival: Ambulatory ca1 19:01 Acuity: SLOAN 3 ca1 GARBAGE PICK UP MAN: 19:05 LMP 12/21/2019 ca1 Historical: - Allergies: 19:05 No Known Allergies; ca1 - Home Meds: 19:05 None [Active]; ca1 - PMHx: 19:05 IBS; ca1 - PSHx: 19:05 Cholecystectomy; bunions; ca1 - Immunization history:: Adult Immunizations up to date, Flu vaccine is not up to date. - Social history:: Smoking status: Patient denies any tobacco usage or history of. - Family history:: not pertinent. - Hospitalizations: : No recent hospitalization is reported. Screenin:10 Abuse screen: Denies threats or abuse. Nutritional screening: No deficits noted. jb4 Tuberculosis screening: No symptoms or risk factors identified. Fall Risk None identified. Assessment: 20:10 General: Appears in no apparent distress. comfortable, Behavior is calm, cooperative, jb4 appropriate for age. Pain: Complains of pain in anterior aspect of right lateral abdomen Pain radiates to right lower quadrant Pain currently is 3 out of 10 on a pain scale. Neuro: Level of Consciousness is awake, alert, obeys commands, Oriented to person, place, time, situation. Cardiovascular: Patient's skin is warm and dry. Respiratory: Airway is patent Respiratory effort is even, unlabored, Respiratory pattern is regular, symmetrical. GI: No signs and/or symptoms were reported involving the gastrointestinal system. : Reports pain in right flank(s), lower quadrant(s). EENT: No signs and/or symptoms were reported regarding the EENT system. Derm: Skin is intact, Skin is pink, warm \T\ dry. Musculoskeletal: Circulation, motion, and sensation intact. Range of motion: intact in all extremities. 21:15 Reassessment: Patient appears in no apparent distress at this time. Patient and/or jb4 family updated on plan of care and expected duration. Pain level reassessed. Patient is alert, oriented x 3, equal unlabored respirations, skin warm/dry/pink. 22:30 Reassessment: Patient appears in no apparent distress at this time. Patient and/or jb4 family updated on plan of care and expected duration. Pain level reassessed. Patient is alert, oriented x 3, equal unlabored respirations, skin warm/dry/pink. 23:30 Reassessment: Patient appears in no apparent distress at this time. Patient and/or jb4 family updated on plan of care and expected duration. Pain level reassessed. Patient is alert, oriented x 3, equal unlabored respirations, skin warm/dry/pink. 23:37 Reassessment: Patient is alert, oriented x 3, equal unlabored respirations, skin bb warm/dry/pink. pt verbalized understanding of and agrees to plan of care discharge instructions given pt ambulated with steady gait to exit. Vital Signs: 19:01 BP 132 / 88; Pulse 82; Resp 16 S; Temp 98.9(TE); Pulse Ox 100% on R/A; Weight 71.67 kg ca1 (R); Height 5 ft. 2 in. (157.48 cm) (R); Pain 3/10; 21:00 BP 118 / 69; Pulse 85; Resp 16; Pulse Ox 97% on R/A; jb4 23:30 BP 110 / 71; Pulse 81; Resp 16; Pulse Ox 97% on R/A; jb4 23:37 BP 110 / 71; Pulse 80; Resp 14 S; Pulse Ox 97% on R/A; bb 19:01 Body Mass Index 28.90 (71.67 kg, 157.48 cm) ca1 ED Course: 18:29 Patient arrived in ED. ds1 19:04 Triage completed. ca1 19:05 Arm band placed on right wrist. ca1 20:00 Urine collected: clean catch specimen, clear, chantell colored. jp3 20:02 Mitchell Newby MD is Attending Physician. rn 20:02 Urine Microscopic Only Sent. ca1 20:02 Urine Culture Sent. ca1 20:10 Patient has correct armband on for positive identification. Bed in low position. Call jb4 light in reach. Side rails up X 1. Pulse ox on. NIBP on. 20:30 Initial lab(s) drawn, by or, sent to lab. Inserted saline lock: 20 gauge in left jb4 antecubital area, using aseptic technique. Blood collected. 20:55 Zheng Sorto, RN is Primary Nurse. 4 22:25 CT Abd/Pelvis - IV Contrast Only In Process Unspecified. EDMS 23:10 Hemant Patricia MD is Referral Physician. rn 23:38 No provider procedures requiring assistance completed. IV discontinued, intact, bb bleeding controlled, No redness/swelling at site. Pressure dressing applied. Administered Medications: No medications were administered Point of Care Testing: Urine : 20:06 hCG Reading: Negative; Control Reading: Positive; jp3 Outcome: 23:10 Discharge ordered by . rn 23:38 Discharged to home ambulatory. bb 23:38 Condition: stable 23:38 Discharge instructions given to patient, Instructed on discharge instructions, follow up and referral plans. Demonstrated understanding of instructions, follow-up care. 23:38 Patient left the ED. bb Signatures: Dispatcher [employer] EDPR Baca Judith ds1 Bernie Clements, RN RN bb Mitchell Newby MD MD rn Bryson, James, RN RN jb4 Georgi Vernon jp3 Kelly Moody RN RN ca1
--- NOTE | 2020-01-11 23:11 | EDPHYS ---
Physician Documentation [facility] Name: Steph Ramirez Age: 29 yrs Sex: Female : 1990 Arrival Date: 01/11/2020 Time: 18:29 Bed 16 Private MD: ED Physician Mitchell Newby HPI: 01/10 20:18 This 29 yrs old Female presents to ER via Ambulatory with complaints of Flank rn Pain. 20:18 The patient complains of pain in the right mid back. The pain does not radiate. Onset: rn The symptoms/episode began/occurred 1 week(s) ago. Modifying factors: The symptoms are alleviated by nothing. the symptoms are aggravated by nothing. Severity of pain: At its worst the pain was mild in the emergency department the pain is unchanged. The patient has experienced a previous episode. Reports right flank pain for 1 week, no fever/nausea/vomiting/diarrhea/constipation. No urinary symptoms. Last time had this pain was UTI, so came in for eval. No trauma. Reports IUD placed recently and still having a little vaginal bleeding. Has had cholecystectomy. . SEGREGATOR: 19:05 LMP 12/21/2019 ca1 Historical: - Allergies: 19:05 No Known Allergies; ca1 - Home Meds: 19:05 None [Active]; ca1 - PMHx: 19:05 IBS; ca1 - PSHx: 19:05 Cholecystectomy; bunions; ca1 - Immunization history:: Adult Immunizations up to date, Flu vaccine is not up to date. - Social history:: Smoking status: Patient denies any tobacco usage or history of. - Family history:: not pertinent. - Hospitalizations: : No recent hospitalization is reported. ROS: 20:18 Constitutional: Negative for fever, chills, and weight loss, Eyes: Negative for injury, rn pain, redness, and discharge, Neck: Negative for injury, pain, and swelling, Cardiovascular: Negative for chest pain, palpitations, and edema, Respiratory: Negative for shortness of breath, cough, wheezing, and pleuritic chest pain, Abdomen/GI: + right flank pain, negative for nausea/vomiting/diarrhea. Back: Negative for injury : Negative for injury, bleeding, discharge, and swelling, MS/Extremity: Negative for injury and deformity, Skin: Negative for injury, rash, and discoloration, Neuro: Negative for headache, weakness, numbness, tingling, and seizure. Exam: 20:18 Constitutional: This is a well developed, well nourished patient who is awake, alert, rn and in no acute distress. Head/Face: Normocephalic, atraumatic. Cardiovascular: Regular rate and rhythm. No pulse deficits. Respiratory: Speaking full sentences. No increased work of breathing, no retractions or nasal flaring. Abdomen/GI: soft, non-tender, no distension, no masses Back: No spinal tenderness. No costovertebral tenderness. Full range of motion. Skin: Warm, dry MS/ Extremity: Pulses equal, no cyanosis. Neuro: Awake and alert, GCS 15 Vital Signs: 19:01 BP 132 / 88; Pulse 82; Resp 16 S; Temp 98.9(TE); Pulse Ox 100% on R/A; Weight 71.67 kg ca1 (R); Height 5 ft. 2 in. (157.48 cm) (R); Pain 3/10; 21:00 BP 118 / 69; Pulse 85; Resp 16; Pulse Ox 97% on R/A; jb4 23:30 BP 110 / 71; Pulse 81; Resp 16; Pulse Ox 97% on R/A; jb4 23:37 BP 110 / 71; Pulse 80; Resp 14 S; Pulse Ox 97% on R/A; bb 19:01 Body Mass Index 28.90 (71.67 kg, 157.48 cm) ca1 MDM: 20:02 Patient medically screened. rn 23:07 Differential diagnosis: nephrolithiasis, pyelonephritis, UTI, diverticulitis, IBS, IBD. rn Data reviewed: vital signs, nurses notes, lab test result(s), radiologic studies, CT scan, and as a result, I will admit patient. Counseling: I had a detailed discussion with the patient and/or guardian regarding: the historical points, exam findings, and any diagnostic results supporting the discharge/admit diagnosis, lab results, radiology results, the need for outpatient follow up, to return to the emergency department if symptoms worsen or persist or if there are any questions or concerns that arise at home. Response to treatment: the patient's symptoms have markedly improved after treatment, and as a result, I will discharge patient. Special discussion: I discussed with the patient/guardian in detail that at this point there is no indication for admission to the hospital. It is understood, however, that if the symptoms persist or worsen the patient needs to return immediately for re-evaluation. Based on the history and exam findings, there is no indication for further emergent testing or inpatient evaluation. I discussed with the patient/guardian the need to see the dredging inspector for further evaluation of the symptoms. 01/10 19:02 Order name: Urine Culture [facility] 01/10 19:02 Order name: Urine Microscopic Only; Complete Time: 22:26 [facility] 01/10 20:17 Order name: Basic Metabolic Panel; Complete Time: 22: 01/10 20:17 Order name: CBC with Diff; Complete Time: : 01/10 20:17 Order name: Hepatic Function; Complete Time: : 01/10 20:17 Order name: Lipase; Complete Time: : 01/10 19:02 Order name: Urine Test (obtain specimen); Complete Time: 20:02 [facility] 01/10 19:02 Order name: Urine Dipstick-Ancillary (obtain specimen); Complete Time: 20:02 [facility] 01/10 20:17 Order name: IV Saline Lock; Complete Time: 20:55 01/10 20:17 Order name: Labs collected and sent; Complete Time: 20:55 01/10 20:17 Order name: CT Abd/Pelvis - IV Contrast Only 01/10 20:37 Order name: Urine --Ancillary (enter results); Complete Time: 22:26 tt3 01/10 20:37 Order name: Urine Dipstick--Ancillary (enter results); Complete Time: 22:26 tt3 Administered Medications: No medications were administered Point of Care Testing: Urine : 20:06 hCG Reading: Negative; Control Reading: Positive; jp3 Disposition: 01/11/20 23:10 Discharged to Home. Impression: Upper abdominal pain, unspecified. - Condition is Stable. - Discharge Instructions: Abdominal Pain, Adult, Pain Without a Known Cause. - Medication Reconciliation Form, Thank You Letter, Antibiotic Education, Prescription Opioid Use form. - Follow up: Hemant Patricia MD; When: As needed; Reason: Recheck today's complaints, Re-evaluation by your physician. - Problem is new. - Symptoms have improved. Signatures: Dispatcher [employer] EDMS Christianson, Faye, HOUSE NURSE-C HOUSE NURSE-Csnw Bernie Clements RN RN bb Mitchell Newby MD MD rn Acob, EVANS Mendoza RN ca1 Corrections: (The following items were deleted from the chart) 23:38 23:10 01/11/2020 23:10 Discharged to Home. Impression: Upper abdominal pain, bb unspecified. Condition is Stable. Forms are Medication Reconciliation Form, Thank You Letter, Antibiotic Education, Prescription Opioid Use. Follow up: Hemant Patricia; When: As needed; Reason: Recheck today's complaints, Re-evaluation by your physician. Problem is new. Symptoms have improved. rn
[2020-01-12 05:46] VITALS: O2SAT 97
[2020-01-12 05:48] VITALS: BP 110/71
[2020-01-12 05:49] VITALS: TEMP 98.9
--- NOTE | 2020-01-12 11:26 | RAD REPORT ---
EXAM DESCRIPTION: Abdomen Pelvis W Contrast CLINICAL HISTORY: Right flank pain COMPARISON: 11/04/2019. TECHNIQUE: CT ABDOMEN PELVIS WITH IV CONTRAST on 01/11/2020 8:17 PM [employer] This exam was performed according to our departmental dose-optimization program, which includes autom ated exposure control, adjustment of the mA and/or kV according to patient size and/or use of iterati ve reconstruction technique. FINDINGS: Lower lungs are clear. Abdomen: The liver is normal in appearance. There is no biliary dilatation. Cholecystectomy was perfo rmed. The pancreas and spleen are normal in appearance. The adrenal glands and kidneys are unremarkab le. Abdominal aorta is normal in course and caliber without aneurysm. There is no free air. There is no r etroperitoneal adenopathy. There is a small fat-containing umbilical hernia. Pelvis: There is no bowel obstruction. Urinary bladder is unremarkable. There is no free fluid. Uteru s is normal in size. Appendix is normal. IUD is present. Skeleton: There are no acute osseous findings. No suspicious bony lesions. IMPRESSION: No acute process. Electronically signed by: Shady Maldonado MD 01/11/2020 10:40 PM [employer] Due to temporary technical issues with the PACS/Fluency reporting system, reports are being signed by the in house radiologist without review as a courtesy to ensure prompt reporting. The interpreting r adiologist is fully responsible for the content of the report.
== END 2020-01-11 23:38 | disposition home or self-care (01) ==
LOC: ER 18:26
DX: R10.10 Upper abdominal pain, unspecified (principal)
CPT/HCPCS: 87088; 85025; 87086; 80048; 36415; 81025; 80076; 83690; 74177; Q9967; 81003; 81015; 99284

== ENCOUNTER 2020-03-12 18:23 | Emergency (ER) | payer MEDICAID, OTHER ==
--- OUTSIDE RECORDS SUMMARY | 2020-03-12 18:37 | XMS REPORT | Summary of Care ---
:1990 Author Organization [facility] Address [address] [place] [id number] Care Team Providers Name Role Phone Alexis Eduardo Barrett Primary Care Provider Reason for Visit Reason Comments INTRAUTERINE DEVICE Mirena insertion Encounter Details Date Type Department Care Team Description 08/23/[address] [facility] Women's BenoitLise MD Uterine perforation by uterine sound (Pr imary Dx); [facility] [address] Encounter for IUD insertion; [address] [place] [address] [address] insertion; [address], [address]; [place] [id number] [phone] Encounter for female control [id number] Allergies No Known Allergiesdocumented as of this encounter (statuses as of 02/14/2020) Medications Medication Sig Dispensed Refills Start End Date Status Date ferrous sulfate Take 1 tablet 60 tablet 2 Active 325 mg (65 mg by mouth 2 0 iron) (two) times tabletIndications: daily. High-risk in third trimester, 37 weeks gestation of , Obesity (BMI 30-39.9), Intrauterine growth restriction (IUGR) affecting care of mother, third trimester, single or unspecified fetus, Liveborn , of rizo , born in hospital by vaginal delivery vitamin Take 1 tablet 100 tablet 3 10/22/19 Discontinued w/FA by mouth daily. 0 20 (Pat ient tabletIndications: R eported) High-risk in third trimester, 37 weeks gestation of , Obesity (BMI 30-39.9), Intrauterine growth restriction (IUGR) affecting care of mother, third trimester, single or unspecified fetus, Liveborn , of rizo , born in hospital by vaginal delivery docusate calcium Take 1 capsule 60 capsule 1 0 Discontinued 240 mg by mouth once 0 20 (Patie nt capsuleIndications daily as needed Reported) : High-risk for in third Constipation. trimester, 37 weeks gestation of , Obesity (BMI 30-39.9), Intrauterine growth restriction (IUGR) affecting care of mother, third trimester, single or unspecified fetus, Liveborn infant, of rizo , born in hospital by vaginal delivery ibuprofen 600 mg Take 1 tablet 30 tablet 1 10/22/19 Discontinued tabletIndications: by mouth every 0 20 (Patient High-risk 6 (six) hours Report ed) in third as needed trimester, 37 (Pain). Take weeks gestation of with food or , Obesity milk. (BMI 30-39.9), Intrauterine growth restriction (IUGR) affecting care of mother, third trimester, single or unspecified fetus, Liveborn , of rizo , born in hospital by vaginal delivery hydrocortisone-pra Insert 1 10 g 0 10/22/19 D iscontinued movine rectal foam Applicator into 0 20 (Patient rectum 2 (two) Repor mara) times daily. metroNIDAZOLE Take 1 tablet 10 tablet 0 08/28/19 Ex pired (FLAGYL) 500 mg by mouth 2 0 20 tabletIndications: (two) times Uterine daily for 5 perforation by days. uterine sound Hospital, Clinic, or Other Ordered Dose Route Frequency Start Date End Date Status Facility Administered Medication etonogestrel (NEXPLANON) 68 mg Sdrm ONCE NOW 08/23/201908/02 Ended implant 68 mg documented as of this encounter (statuses as of 02/14/2020) Active Problems Problem Noted Date Obesity (BMI 30-39.9) 05/19/2019 documented as of this encounter (statuses as of 02/14/2020) Resolved Problems Problem Noted Date Resolved Date [...] as of this encounter (statuses as of 02/14/2020) Social History Tobacco Use Types Packs/Day Years [...] documented in this encounter Progress Notes Lise Beniot MD - 08/23/2019 1:30 PM CDTIUD INSERTION [...] and provided printed copy. nexplanon Lot #: [id number] Year removal date: 2022 Patient palpated implant: Yes Lise Benoit MD #[id number] 08/23/2019 5:27 PM documented in this encounter Plan of Treatment Date Type Specialty Care Team Description 02/28/2020 Office Visit Obstetrics & Gynecology Emma Ba PA-C [address] [place] [address] [phone] Health Maintenance Due Date Last Done [...] 08/23/19 at 1830, Routine, Use approved by: TRASH HAULER documented in this encounter Insurance Payer Benefit Plan / Subscriber ID Effective Phone Address T e Group Dates [employer] [id number] 2019-Viola [address] Medic [place] [id number] [place]ED MED[place] documented as of this encounter
--- OUTSIDE RECORDS SUMMARY | 2020-03-12 18:37 | XMS REPORT | Continuity of Care Document ---
:1990 Author Organization [facility] t Address [address] [place] [address] Care Team Providers Name Role Phone Franok Benoit MD Attending Clinician Payers Payer Name Policy Type Policy Number [...] Date/Time Type Type Clinicians Facility Department ID 2019-08-23 2019-08-23 Office Lise Benoit NDMARTI [id number] 13:41:19 16:06:53 Visit Franko Jimenez [id number] [place] [id number] [facility] [phone] [facility] [address] Building Results This patient has no known results.
--- OUTSIDE RECORDS SUMMARY | 2020-03-12 18:37 | XMS REPORT | Summary of Care ---
:1990 Author Organization [facility] Address [address] [place] [id number] Care Team Providers Name Role Phone Eduardo Espinoza Primary Care Provider Reason for Visit Reason Comments LAB covid test Encounter Details Date Type Department Care Team Description 02/10/2020 Laboratory Only [facility] Family Keren Issa PA [address] [place] [address] [place] [address] Exposure to Medicine - [facility], Adc Fam Pob I SARS-associated [address] [place] [address] coronaviru s ([address] Drive Dx) [place] [address] Allergies No Known Allergiesdocumented as of this encounter (statuses as of 02/10/2020) Medications Medication Sig Dispensed Refills Start Date [...] as of this encounter (statuses as of 02/10/2020) Active Problems Problem Noted Date Obesity (BMI 30-39.9) 05/19/2019 documented as of this encounter (statuses as of 02/10/2020) Resolved Problems Problem Noted Date Resolved Date [...] as of this encounter (statuses as of 02/10/2020) Social History Tobacco Use Types Packs/Day Years Used Date Never Smoker Smokeless Tobacco: Never Used Alcohol Use Drinks/Week oz/Week Comments Not Currently Sex Assigned at Date Recorded Not on file COVID-19 Exposure Response Date Recorded In the last month, have you been in contact with No / Unsure 02/09/2020 8:17 PM FILM RENTAL CLERK someone who was confirmed or suspected to have Coronavirus / COVID-19? documented as of this encounter Last Filed Vital Signs Not on filedocumented in this encounter Nursing Notes Kelby Jerry MA - 02/10/2020 1:20 PM CSTSteph Ramirez is a 29 year old female here for COVID Screening with a Nasopharyngeal Swab All droplet and contact precautions taken with appropriate PPE worn while interacting with patient. ? Goggles ? N95 Mask ? Gloves ? Gown RR: 18 Pulse: 60 O2: 99% Patient educated on plan of care for [...] from the testing clinic in stable condition. KELBY JERRY MA 02/10/2020 1:30 PM RENTAL CLERK documented in this encounter Plan of Treatment Date Type Specialty Care Team Description 02/28/2020 Office Visit Obstetrics & Gynecology Emma Ba PA-C [address] [place] [phone] Name Type Priority Associated Diagnoses Order S regina COVID-19 (MOLECULAR LAB Routine Exposure to Expected : 02/10/2020, TESTING SARS-associated Expires: 021 NUCLEIC ACID coronavirus AMPLIFICATION) Health Maintenance Due Date Last Done Comments [...] this encounter Visit Diagnoses Diagnosis Exposure to SARS-associated coronavirus - Primary documented in this encounter Additional Health Concerns Infection Onset Date Last Indicated Resolved Time COVID-19 Rule Out 02/10/2020 02/10/2020 documented as of this encounter Insurance Payer Benefit Plan / Subscriber ID Effective Phone Address T e Group Dates [employer] [id number] 2019-Viola [address] Medic [place] [id number] [place] MED[place] documented as of this encounter
[2020-03-12] MEDS ORDERED: DIPHENHYDRAMINE 50 MG/ML VIAL ONE (20:14)
[2020-03-12] MEDS ORDERED: METOCLOPRAMIDE 10 MG/2mL INJ ONE (20:14)
[2020-03-12] MEDS ORDERED: NA CHLORIDE 0.9% 1,000 ML ONE (20:14)
[2020-03-12 20:20] LABS: Absolute Lymphocytes (CBC) 1.7 K/uL (0.7-4.9); Basophils % 0.4 % (0-1.3); Hematocrit 41.5 % (36.0-45.0); Lymphocytes % 13.8 % (15.3-44.8); MPV 7.7 fL (7.6-11.3); RBC Red Blood Cell Count 5.04 M/uL (3.86-4.86)
[2020-03-12 20:24] LABS: Urine Blood 2+ (NEG); Urine Glucose NEGATIVE (NEG); Urine Protein NEGATIVE (NEG); Urine Specific Gravity >1.030 (1.005-1.030)
[2020-03-12 20:25] LABS: Urine Specific Gravity >1.030 (1.005-1.030)
[2020-03-12 20:26] LABS: Protime INR 1.07
--- NOTE | 2020-03-12 20:35 | RAD REPORT ---
EXAM DESCRIPTION: CT - Head Brain Wo Cont - 03/12/2020 8:20 pm CLINICAL HISTORY: HEADACHE Headache, drowsiness, blurry vision COMPARISON: No comparisons TECHNIQUE: All CT scans are performed using dose optimization technique as appropriate and may inclu de automated exposure control or mA/KV adjustment according to patient size. FINDINGS: No intracranial hemorrhage, hydrocephalus or extra-axial fluid collection.No areas of brai n edema or evidence of midline shift. The paranasal sinuses and mastoids are clear. The calvarium is intact. IMPRESSION: No acute intracranial abnormality.
[2020-03-12 20:38] LABS: ALT/SGPT 44 U/L (12-78); AST/SGOT 18 U/L (15-37); Albumin 4.3 g/dL (3.4-5.0); Alkaline Phosphatase 107 U/L (45-117); BUN Blood Urea Nitrogen 14 mg/dL (7-18); Bicarbonate 26 mmol/L (21-32); Bilirubin Direct 0.1 mg/dL (0-0.2); Bilirubin Total 0.5 mg/dL (0.2-1.0); Glucose Level 108 mg/dL (74-106); Potassium 3.4 mmol/L (3.5-5.1); Protein, Total 8.5 g/dL (6.4-8.2); Sodium Level 142 mmol/L (136-145)
[2020-03-12] MEDS ORDERED: CEFTRIAXONE/SWI 1gm 1 GM/10 ML SYR ONE (21:07)
--- NOTE | 2020-03-12 21:32 | EDPHYS ---
Physician Documentation [facility] Name: Steph Ramirez Age: 29 yrs Sex: Female : 1990 Arrival Date: 03/12/2020 Time: 18:25 Bed 20 Private MD: ED Physician Kalyan Blood HPI: 03/12 20:07 This 29 yrs old Female presents to ER via Ambulatory with complaints of mh7 Headache, Dizziness, Blurred Vision. 20:07 The patient complains of pain to the top of head. The patient describes the headache as mh7 intermittent, throbbing, waxing and waning. Onset: The symptoms/episode began/occurred 10 day(s) ago. Associated signs and symptoms: Pertinent positives: nausea, Photophobia sinus congestion, blurred vision, Pertinent negatives: altered mental status, dizziness, fever, malaise, neck stiffness, paresthesias, rash, sinus tenderness, vision loss, vomiting, weakness, vertigo. Severity of symptoms: At its worst the pain was moderate, 7 day(s) ago, in the emergency department the pain has improved, moderately. Headache History: The patient has had previous headaches and this one is similar to previous episodes. The symptoms are alleviated by over the counter pain medication, OTC NSAIDS, the symptoms are aggravated by lights, noise, stress. 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 - Social history:: Smoking status: Patient denies any tobacco usage or history of. ROS: 20:07 Constitutional: Negative for fever, chills, and weight loss, Eyes: Negative for injury, mh7 pain, redness, and discharge, ENT: Negative for injury, pain, and discharge, Neck: Negative for injury, pain, and swelling, Cardiovascular: Negative for chest pain, palpitations, and edema, Respiratory: Negative for shortness of breath, cough, wheezing, and pleuritic chest pain, Back: Negative for injury and pain, : Negative for injury, bleeding, discharge, and swelling, MS/Extremity: Negative for injury and deformity, Skin: Negative for injury, rash, and discoloration, Psych: Negative for depression, anxiety, suicide ideation, homicidal ideation, and hallucinations, Allergy/Immunology: Negative for hives, rash, and allergies, Endocrine: Negative for neck swelling, polydipsia, polyuria, polyphagia, and marked weight changes, Hematologic/Lymphatic: Negative for swollen nodes, abnormal bleeding, and unusual bruising. Exam: 20:07 Constitutional: This is a well developed, well nourished patient who is awake, alert, mh7 and in no acute distress. Head/Face: Normocephalic, atraumatic. Eyes: Pupils equal round and reactive to light, extra-ocular motions intact. Lids and lashes normal. Conjunctiva and sclera are non-icteric and not injected. Cornea within normal limits. Periorbital areas with no swelling, redness, or edema. ENT: Nares patent. No nasal discharge, no septal abnormalities noted. Tympanic membranes are normal and external auditory canals are clear. Oropharynx with no redness, swelling, or masses, exudates, or evidence of obstruction, uvula midline. Mucous membranes moist. Neck: Trachea midline, no thyromegaly or masses palpated, and no cervical lymphadenopathy. Supple, full range of motion without nuchal rigidity, or vertebral point tenderness. No Meningismus. Chest/axilla: Normal chest wall appearance and motion. Nontender with no deformity. No lesions are appreciated. Cardiovascular: Regular rate and rhythm with a normal S1 and S2. No gallops, murmurs, or rubs. Normal PMI, no JVD. No pulse deficits. Respiratory: Lungs have equal breath sounds bilaterally, clear to auscultation and percussion. No rales, rhonchi or wheezes noted. No increased work of breathing, no retractions or nasal flaring. Abdomen/GI: Soft, non-tender, with normal bowel sounds. No distension or tympany. No guarding or rebound. No evidence of tenderness throughout. Back: No spinal tenderness. No costovertebral tenderness. Full range of motion. Skin: Warm, dry with normal turgor. Normal color with no rashes, no lesions, and no evidence of cellulitis. MS/ Extremity: Pulses equal, no cyanosis. Neurovascular intact. Full, normal range of motion. Neuro: Awake and alert, GCS 15, oriented to person, place, time, and situation. Cranial nerves II-XII grossly intact. Motor strength 5/5 in all extremities. Sensory grossly intact. Cerebellar exam normal. Normal gait. Psych: Awake, alert, with orientation to person, place and time. Behavior, mood, and affect are within normal limits. Vital Signs: 18:45 BP 146 / 92; Pulse 92; Resp 18 S; Temp 98.3(TE); Pulse Ox 100% on R/A; Weight 71.67 kg ca1 (R); Height 5 ft. 2 in. (157.48 cm) (R); 21:21 BP 132 / 85; Pulse 90; Resp 17; Pulse Ox 99% ; Pain 3/10; rr5 18:45 Body Mass Index 28.90 (71.67 kg, 157.48 cm) ca1 [facility] Coma Score: 21:28 Eye Response: spontaneous(4). Verbal Response: oriented(5). Motor Response: obeys [facility] commands(6). Total: 15. MDM: 21:28 Differential diagnosis: cluster headache, migraine, sinusitis, tension headache. Data [facility] reviewed: vital signs, nurses notes, lab test result(s), CBC, electrolytes, urinalysis, bacteruria, UPT: radiologic studies, CT scan. Data interpreted: Pulse oximetry: on room air is 99 %. Interpretation: normal. Counseling: I had a detailed discussion with the patient and/or guardian regarding: the historical points, exam findings, and any diagnostic results supporting the discharge/admit diagnosis, lab results, radiology results, the need for outpatient follow up, to return to the emergency department if symptoms worsen or persist or if there are any questions or concerns that arise at home. Response to treatment: the patient's symptoms have resolved after treatment, the patient's blood pressure is in an acceptable range, mental status has returned to baseline, the patient no longer shows bradycardia, the patient is not short of breath, the patient is not tachycardic, the patient's pain is gone, the patient's temperature has normalized, the patient is now symptom free, patient is well hydrated. 21:30 Patient medically screened. [facility] 03/12 19:55 Order name: CBC with Diff; Complete Time: 20:49 [facility] 03/12 19:55 Order name: Basic Metabolic Panel; Complete Time: 20:49 mh03/12 19:55 Order name: Protime (+inr); Complete Time: 20:49 03/12 19:55 Order name: Ptt, Activated; Complete Time: 20:49 03/12 19:55 Order name: LFT's; Complete Time: 20:49 03/12 20:06 Order name: Urine Dipstick--Ancillary (enter results); Complete Time: 20:49 03/12 19:55 Order name: Urine Dipstick-Ancillary (obtain specimen); Complete Time: 20:07 03/12 19:55 Order name: CT Head Brain wo Cont; Complete Time: 20:49 03/12 20:09 Order name: Urine --Ancillary (enter results); Complete Time: 20:49 03/12 20:50 Order name: Urine Culture 03/12 19:55 Order name: Urine Test (obtain specimen); Complete Time: 20:09 Administered Medications: 20:00 Drug: NS 0.9% 1000 ml Route: IV; Rate: 1000 ml; Site: right antecubital; rr5 21:30 Follow up: Response: No adverse reaction; IV Status: Completed infusion; IV Intake: rr5 1000ml 20:00 Drug: Benadryl 50 mg Route: IVP; Site: right antecubital; rr5 21:00 Follow up: Response: No adverse reaction; Pain is decreased rr5 20:02 Drug: Reglan 10 mg Route: IVP; Site: right antecubital; rr5 21:02 Follow up: Response: No adverse reaction; Pain is decreased rr5 21:04 Drug: Rocephin - (cefTRIAXone) 1 grams Route: IVPB; Infused Over: 30 mins; Site: right rr5 antecubital; 21:40 Follow up: Response: No adverse reaction; IV Status: Completed infusion; IV Intake: [id number] Disposition: 03/12/20 21:30 Discharged to Home. Impression: Headache, Urinary tract infection, site not specified. - Condition is Stable. - Discharge Instructions: General Headache Without Cause, Urinary Tract Infection, Adult, [id number]. - Prescriptions for Zofran ODT 4 mg Oral tablet,disintegrating - place 1 tablet by TRANSLINGUAL route every 8 hours As needed; 6 tablet. Keflex 500 mg Oral Capsule - take 1 capsule by ORAL route every 12 hours for 7 days; 14 capsule. - Medication Reconciliation Form, Thank You Letter, Antibiotic Education, Prescription Opioid Use form. - Follow up: Private Physician; When: 1 - 2 days; Reason: Worsening of condition, Recheck today's complaints, Continuance of care, Re-evaluation by your physician. Follow up: Moreno Carrington MD; When: 1 - 2 days; Reason: Worsening of condition, Recheck today's complaints. - Problem is an ongoing problem. - Symptoms have improved. Signatures: Dispatcher [employer] EDMS Maurice Dela Cruz RN RN rr5 Kelly Moody RN RN ca1 Kalyan Blood MD MD 7 Corrections: (The following items were deleted from the chart) 21:49 21:30 03/12/2020 21:30 Discharged to Home. Impression: Headache; Urinary tract rr5 infection, site not specified. Condition is Stable. Forms are Medication Reconciliation Form, Thank You Letter, Antibiotic Education, Prescription Opioid Use. Follow up: Private Physician; When: 1 - 2 days; Reason: Worsening of condition, Recheck today's complaints, Continuance of care, Re-evaluation by your physician. Follow up: Moreno Carrington; When: 1 - 2 days; Reason: Worsening of condition, Recheck today's complaints. Problem is an ongoing problem. Symptoms have improved. mh7
--- NOTE | 2020-03-12 21:32 | ER ---
Nurse's Notes [facility] Name: Steph Ramirez Age: 29 yrs Sex: Female : 1990 Arrival Date: 03/12/2020 Time: 18:25 Bed 20 Private MD: Diagnosis: Headache;Urinary tract infection, site not specified Presentation: 03/12 18:45 Chief complaint: Patient states: headaches x 10 days. Intermittent dizziness and ca1 blurring of vision with the headaches. reports nausea today. Denies HX of Migraines. Coronavirus screen: Client denies travel out of the [place] in the last 14 days. headache, nausea, Client presents with at least one sign or symptom that may indicate coronavirus-19. Standard/surgical mask placed on the client. Provider contacted for isolation considerations. Ebola Screen: Patient negative for fever greater than or equal to 101.5 degrees Fahrenheit, and additional compatible Ebola Virus Disease symptoms Patient denies exposure to infectious person. Patient denies travel to an Ebola-affected area in the 21 days before illness onset. No symptoms or risks identified at this time. Initial Sepsis Screen: Does the patient meet any 2 criteria? No. Patient's initial sepsis screen is negative. Does the patient have a suspected source of infection? No. Patient's initial sepsis screen is negative. Risk Assessment: Do you want to hurt yourself or someone else? Patient reports no desire to harm self or others. Onset of symptoms was March 12, 2020. 18:45 Method Of Arrival: Ambulatory ca1 18:45 Acuity: SLOAN 4 ca1 Triage Assessment: 20:00 Headache History: The patient has had previous headaches and this one is different than rr5 previous episodes. 20:00 General: Appears in no apparent distress. Pain: Also complains of dizziness. 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 - Social history:: Smoking status: Patient denies any tobacco usage or history of. Screenin:22 Abuse screen: Denies threats or abuse. Denies injuries from another. Nutritional rr5 screening: No deficits noted. Tuberculosis screening: No symptoms or risk factors identified. Fall Risk IV access (20 points). Total Schroeder Fall Scale indicates No Risk (0-24 pts). Assessment: 20:00 General: Appears in no apparent distress. comfortable, Behavior is calm, cooperative, rr5 appropriate for age. 20:00 Pain: Complains of pain in head Pain currently is 3 out of 10 on a pain scale. Quality rr5 of pain is described as aching, Pain began gradually, Is intermittent. Neuro: Level of Consciousness is awake, alert, obeys commands, Oriented to person, place, time, Appropriate for age Reports dizziness, headache. Cardiovascular: Capillary refill < 3 seconds Patient's skin is warm and dry. Respiratory: Airway is patent Respiratory effort is even, unlabored, Respiratory pattern is regular, symmetrical. GI: No signs and/or symptoms were reported involving the gastrointestinal system. : EENT: Reports blurred vision. Derm: Skin is intact, is healthy with good turgor, Skin temperature is warm. Musculoskeletal: Circulation, motion, and sensation intact. Capillary refill < 3 seconds. 21:21 Reassessment: Patient appears in no apparent distress at this time. Patient is alert, rr5 oriented x 3, equal unlabored respirations, skin warm/dry/pink. awaiting for review. Vital Signs: 18:45 BP 146 / 92; Pulse 92; Resp 18 S; Temp 98.3(TE); Pulse Ox 100% on R/A; Weight 71.67 kg ca1 (R); Height 5 ft. 2 in. (157.48 cm) (R); 21:21 BP 132 / 85; Pulse 90; Resp 17; Pulse Ox 99% ; Pain 3/10; rr5 18:45 Body Mass Index 28.90 (71.67 kg, 157.48 cm) ca1 [place] Coma Score: 21:28 Eye Response: spontaneous(4). Verbal Response: oriented(5). Motor Response: obeys mh7 commands(6). Total: 15. ED Course: 18:25 Patient arrived in ED. ag5 18:47 Triage completed. ca1 18:48 Arm band placed on right wrist. ca1 19:41 Maurice Dela Cruz RN is Primary Nurse. rr5 19:42 Kalyan Blood MD is Attending Physician. mh7 20:00 Patient has correct armband on for positive identification. Bed in low position. Call rr5 light in reach. 20:00 Pulse ox on. NIBP on. rr5 20:00 Urine collected: clean catch specimen. rr5 20:05 Inserted saline lock: 20 gauge in right antecubital area, using aseptic technique. rr5 Blood collected. 20:21 CT Head Brain wo Cont In Process Unspecified. EDMS 21:30 Moreno Carrington MD is Referral Physician. mh7 21:41 No provider procedures requiring assistance completed. IV discontinued, intact, rr5 bleeding controlled, No redness/swelling at site. Pressure dressing applied. Administered Medications: 20:00 Drug: NS 0.9% 1000 ml Route: IV; Rate: 1000 ml; Site: right antecubital; rr5 21:30 Follow up: Response: No adverse reaction; IV Status: Completed infusion; IV Intake: rr5 1000ml 20:00 Drug: Benadryl 50 mg Route: IVP; Site: right antecubital; rr5 21:00 Follow up: Response: No adverse reaction; Pain is decreased rr5 20:02 Drug: Reglan 10 mg Route: IVP; Site: right antecubital; rr5 21:02 Follow up: Response: No adverse reaction; Pain is decreased rr5 21:04 Drug: Rocephin - (cefTRIAXone) 1 grams Route: IVPB; Infused Over: 30 mins; Site: right rr5 antecubital; 21:40 Follow up: Response: No adverse reaction; IV Status: Completed infusion; IV Intake: [id number] Intake: 21:30 IV: 1000ml; Total: 1000ml. rr5 21:40 IV: 50ml; Total: 1050ml. rr5 Outcome: 21:30 Discharge ordered by . mh7 21:41 Discharged to home ambulatory. rr5 21:41 Condition: stable 21:41 Discharge instructions given to patient, Instructed on discharge instructions, follow up and referral plans. medication usage, Demonstrated understanding of instructions, follow-up care, medications, Prescriptions given X 2. 21:49 Patient left the ED. rr5 Addendum: 03/16/2020 11:17 Addendum: Culture Results: Positive urine culture. No further action required. Bacteria i w sensitive to prescribed antibiotic. Signatures: Dispatcher [employer] EDMS Bev Plascencia RN RN iw Maurice Dela Cruz, EVANS RN rr5 Kelly Moody, RN RN ca1 Shobha Cheung ag5 Kalyan Blood MD MD 7
[2020-03-12 21:54] VITALS: TEMP 98.3
[2020-03-12 21:55] VITALS: BP 132/85; O2SAT 99
== END 2020-03-12 21:49 | disposition home or self-care (01) ==
LOC: ER 18:23
DX: N39.0 Urinary tract infection, site not specified (principal)
CPT/HCPCS: 96365; 96361; 87088; 85025; 87086; 80048; 36415; 81025; 85610; 80076; 85730; 81003; 70450; 96375; 99284; J2765; J1200; J0696; J7030; 87077; 87186

== ENCOUNTER 2021-05-06 09:37 | Emergency (ER) | payer OTHER ==
--- OUTSIDE RECORDS SUMMARY | 2021-05-06 09:40 | XMS REPORT | Continuity of Care Document ---
:1990 Author Organization [facility] t Address [address] [place] [address] Care Team Providers Name Role Phone Nena LINARES Primary Care Physician Unavailable Bill Attending Clinician Unavailable Alfreda YEBOAH Attending Clinician Unavailable BRI Attending Clinician Unavailable MAVERICK Attending Clinician Unavailable Donna ADAME Attending Clinician Unavailable KAREY Attending Clinician Unavailable Bianka ACEVES Attending Clinician Unavailable SABINE BRITO Attending Clinician Unavailable MATT Attending Clinician Unavailable Sabine Brito MD Attending Clinician SABINE BRITO Admitting Clinician Unavailable Bill Admitting Clinician Unavailable Payers Payer Name Policy Type Policy Number Effective Date Expiration Date [facility] [id number] 2019 MEDICAID 00:00:00 [facility] [id number] 2020 [facility] MEDICAID 00:00:00 Problems This patient has no known problems. Allergies, Adverse Reactions, Alerts Allergy Allergy Status Severity Reaction(s) Onset Inactive Treating Comm ents Source Name Type Date Date Clinician NO KNOWN Drug Active [facility] ALLERGIE Class [facility] Medications This patient has no known medications. Procedures This patient has no known procedures. Encounters Start End Encounter Admission Attending Care Care Encounter Source Date/Time Date/Time Type Type Clinicians Facility Department ID 2020-12-28 Outpatient P [facility] [id number] Univers 18:41:30 [facility] 2019-03-04 Inpatient LEO Khan [facility] [id number] [facility] 15:00:00 [facility] 2021-09-27 2021-09-27 Outpatient R ADUM, [facility] [id number] Univers 15:30:00 15:30:00 JUSTIN [id number] [facility] 2021-03-03 2021-03-03 Outpatient R [facility] [id number] Univers 14:00:00 14:00:00 [id number] [facility] 2021-03-03 2021-03-03 Outpatient R GREEN, [facility] [id number] Univers 14:00:00 14:00:00 MELBA [facility] 2020-09-27 2020-09-27 Outpatient R ADUM, [facility] [id number] Univers 13:00:00 13:00:00 JUSTIN [id number] [facility] 2020-09-27 2020-09-27 Outpatient R ADUM, [facility] [id number] Univers 13:00:00 13:00:00 JUSTIN [facility] 2020-09-19 2020-09-19 Outpatient R ADUM, [facility] [id number] Univers 11:00:00 11:00:00 JUSTIN [id number] [facility] 2020-09-19 2020-09-19 Outpatient R ADUM, [facility] [id number] Univers 11:00:00 11:00:00 JUSTIN [facility] 2020-08-25 2020-08-25 Outpatient ADUM, [facility] [id number] Univers 13:00:00 13:00:00 JUSTIN [id number] [facility] 2020-08-25 2020-08-25 Outpatient R ADUM, [facility] [id number] Univers 13:00:00 13:00:00 JUSTIN [facility] 2020-05-09 2020-05-09 Outpatient R MAVERICK, [facility] [id number] Univers 15:15:00 15:15:00 ROMARIO [id number] [facility] 2020-05-09 2020-05-09 Outpatient R MAVERICK, [facility] [id number] Univers 15:15:00 15:15:00 ROMARIO [facility] 2020-04-24 2020-04-24 Outpatient R MAVERICK, [facility] [id number] Univers 15:45:00 15:45:00 ROMARIO [id number] [facility] 2020-04-24 2020-04-24 Outpatient R MAVERICK, [facility] [id number] Univers 15:45:00 15:45:00 ROMARIO [facility] 2020-03-31 2020-03-31 Outpatient [facility] [id number] Univers 18:00:00 18:00:00 [id number] [facility] 2020-03-31 2020-03-31 Outpatient R DEEP, [facility] [id number] Univers 18:00:00 18:00:00 PARTHA ity o f [facility] 2020-03-27 2020-03-27 Outpatient R KAREY, [facility] [id number] Univers 18:00:00 18:00:00 MORTEZA [facility] 2020-03-27 2020-03-27 Outpatient R MAVERICK, [facility] [id number] Univers 15:00:00 15:00:00 ROMARIO [id number] [facility] 2020-03-27 2020-03-27 Outpatient R MAVERICK, [facility] [id number] Univers 15:00:00 15:00:00 ROMARIO [facility] 2020-02-28 2020-02-28 Outpatient R MAVERICK [facility] [id number] Univers 09:00:00 09:00:00 ROMARIO [id number] [facility] 2020-02-28 2020-02-28 Outpatient R MAVERICK, [facility] [id number] Univers 09:00:00 09:00:00 ROMARIO [facility] 2020-02-10 2020-02-10 Outpatient [facility] [id number] Univers 13:20:00 13:20:00 [facility] 2020-02-10 2020-02-10 Outpatient R KETAN, [facility] [id number] Univers 13:20:00 13:20:00 DREA ity [facility] 2020-01-03 2020-01-03 Outpatient BRITOJOYCE [facility] [id number] Univers 15:00:00 15:00:00 ity [facility] 2020-01-03 2020-01-03 Outpatient R DARYL JOYCE [facility] [id number] Univers 15:00:00 15:00:00 ity [facility] 2019-11-30 2019-11-30 Outpatient R BRITOJOYCE [facility] [id number] Univers 10:30:00 10:30:00 [id number] ity [facility] 2019-11-30 2019-11-30 Outpatient R BRITO JOYCE [facility] [id number] Univers 10:30:00 10:30:00 ity [facility] 2019-11-29 2019-11-29 Outpatient R BRITOJOYCE [facility] [id number] Univers 14:30:00 14:30:00 [id number] ity [facility] 2019-11-29 2019-11-29 Outpatient R BRITOJOYCE [facility] [id number] Univers 14:30:00 14:30:00 ity [facility] 2019-11-25 2019-11-25 Outpatient R BRITOJOYCE [facility] [id number] Univers 08:30:00 08:30:00 [id number] ity [facility] 2019-11-05 2019-11-05 Outpatient R BRITO [facility] [id number] Univers 10:45:00 10:45:00 ity [facility] 2019-11-05 2019-11-05 Outpatient R BRITO JOYCE [facility] [id number] Univers 10:45:00 10:45:00 ity of [facility] 2019-11-02 2019-11-02 Outpatient [facility] [id number] Univers 16:45:00 16:45:00 ity [facility] 2019-11-02 2019-11-02 Outpatient R [facility] [id number] Univers 16:40:00 16:40:00 ity [facility] 2019-10-22 2019-10-22 Outpatient R ADUM, [facility] [id number] Univers 11:00:00 11:00:00 JUSTIN [id number] ity [facility] 2019-10-22 2019-10-22 Outpatient R EDILIA [facility] [id number] Univers 11:00:00 11:00:00 JUSTIN ity [facility] 2019-10-13 2019-10-13 Outpatient R [facility] [id number] Univers 16:00:00 16:00:00 [id number] ity [facility] 2019-10-13 2019-10-13 Outpatient R BRI [facility] [id number] Univers 16:00:00 16:00:00 MELBA y [facility] 2019-10-09 2019-10-09 Outpatient [facility] [id number] Univers 13:20:00 13:20:00 y [facility] 2019-10-09 2019-10-09 Outpatient R MATT [facility] [id number] Univers 13:20:00 13:20:00 [facility]-08-[facility] 2019-08-25 Outpatient R JOYCE BRITO [facility] [id number] Univers 11:30:00 11:30:00 [id number] ity [facility] 2019-08-25 2019-08-25 Outpatient R JOYCE BRITO [facility] [id number] Univers 11:30:00 11:30:00 [facility] 2019-08-23 2019-08-23 Office Joyce Brito [facility] [id number] 13:41:19 16:06:53 Visit Sabine Jimenez [id number] Yazan [id number] Zayra [id number] [address] 2019-08-23 2019-08-23 Outpatient R BRITOJOYCE [facility] [id number] Univers 13:30:00 13:30:00 [id number] [facility] 2019-08-23 2019-08-23 Outpatient R JOYCE BRITO [facility] [id number] Univers 13:30:00 13:30:00 ity [facility] 2019-08-23 2019-08-23 Outpatient R JOYCE BRITO [facility] [id number] Univers 13:30:00 13:30:00 ity [facility] 2019-07-22 2019-07-22 Outpatient R JOYCE BRITO [facility] [id number] Univers 13:00:00 13:00:00 [id number] ity [facility] 2019-07-22 2019-07-22 Outpatient R JOYCE BRITO [facility] [id number] Univers 13:00:00 13:00:00 ity [facility] 2019-06-23 2019-06-23 Outpatient R [facility] [id number] Univers 10:00:00 10:00:00 [id number] ity [facility] 2019-06-23 2019-06-23 Outpatient R MAVERICK [facility] [id number] Univers 10:00:00 10:00:00 ROMARIO [facility] 2019-06-22 2019-06-22 Outpatient R [facility] [id number] Univers 13:00:00 13:00:00 [id number] [facility] 2019-06-22 2019-06-22 Outpatient R [facility] [id number] Univers 13:00:00 13:00:00 ity [facility] 2019-06-17 2019-06-17 Outpatient R MAVERICK [facility] [id number] Univers 10:15:00 10:15:00 ROMARIO [id number] [facility] 2019-06-17 2019-06-17 Outpatient R DENISHAFARHANA [facility] [id number] Univers 10:15:00 10:15:00 ROMARIO [facility] 2019-06-15 2019-06-15 Outpatient R [facility] [id number] Univers 14:15:00 14:15:00 [id number] ity [facility] 2019-06-15 2019-06-15 Outpatient P [facility] [id number] Univers 14:15:00 14:15:00 ity [facility] 2019-06-08 2019-06-08 Outpatient R [facility] [id number] Univers 09:00:00 09:00:00 ity [facility] 2019-06-08 2019-06-08 Outpatient R [facility] [id number] Univers 09:00:00 09:00:00 [facility] 2019-06-03 2019-06-03 Outpatient JOYCE BRITO [facility] [id number] Univers 11:30:00 11:30:00 [facility] 2019-06-03 2019-06-03 Outpatient R JOYCE BRITO [facility] [id number] Univers 11:30:00 11:30:00 [facility] 2019-05-19 2019-05-19 Outpatient R MAVERICK [facility] [id number] Univers 11:15:00 11:15:00 ROMARIO [id number] [facility] 2019-05-19 2019-05-19 Outpatient R MAVERICK [facility] [id number] Univers 11:15:00 11:15:00 ROMARIO [facility] 2019-05-17 2019-05-17 Outpatient R MAVERICK [facility] [id number] Univers 10:00:00 10:00:00 ROMARIO [id number] [facility] 2019-05-17 2019-05-17 Outpatient R MAVERICK [facility] [id number] Univers 10:00:00 10:00:00 ROMARIO [facility] 2019-05-03 2019-05-03 Outpatient R [facility] [id number] Univers 11:30:00 11:30:00 [facility] 2019-05-03 2019-05-03 Outpatient R JOYCE BRITO [facility] [id number] Univers 10:00:00 10:00:00 [facility] Results This patient has no known results.
[2021-05-06 09:59] LABS: Absolute Lymphocytes (CBC) 2.4 K/uL (0.7-4.9); Hematocrit 40.4 % (36.0-45.0); Lymphocytes % 31.8 % (15.3-44.8); MPV 7.7 fL (7.6-11.3); RBC Red Blood Cell Count 4.79 M/uL (3.86-4.86)
[2021-05-06 10:16] LABS: Bilirubin Direct 0.2 mg/dL (0-0.2); Bilirubin Total 0.7 mg/dL (0.2-1.0); Potassium 3.5 mmol/L (3.5-5.1); Protein, Total 8.4 g/dL (6.4-8.2)
[2021-05-06 10:47] LABS: Urine Blood 2+ (Negative); Urine Glucose Negative (Negative); Urine Protein Negative (Negative); Urine Specific Gravity 1.025 (1.005-1.030); Urine pH 5.5 (5.0-7.0)
[2021-05-06 10:53] LABS: Urine Bacteria 20-50 /HPF (<20); Urine Mucus LIGHT /HPF (NONE SEEN)
--- NOTE | 2021-05-06 10:53 | RAD REPORT ---
EXAM DESCRIPTION: CT - Abdomen Pelvis W Contrast - 05/06/2021 10:33 am CLINICAL HISTORY: ABD PAIN COMPARISON: CT 01/11/2020 TECHNIQUE: Biphasic, helical CT imaging of the abdomen and pelvis was performed following 100 ml non -ionic IV contrast. No oral contrast administered All CT scans are performed using dose optimization technique as appropriate and may include automated exposure control or mA/KV adjustment according to patient size. FINDINGS: No suspicious findings in the lung bases. The liver, spleen, and pancreas show no suspicious findings. Liver attenuation indicates fatty infilt ration. Cholecystectomy clips are present. No biliary tree dilatation. Symmetric renal function is seen with no hydronephrosis or suspicious renal mass. No pyelonephritis o r acute parenchymal process. Urinary bladder is mostly contracted assessment. No uterine or ovarian s ignificant finding. IUD is in place appearing well positioned. No adrenal abnormalities. No dilated bowel loops or bowel wall thickening. Appendix is not clearly defined. No direct or indire ct evidence for appendicitis. No free air, free fluid or inflammatory stranding. No mass or bulky ly mphadenopathy. The fat only periumbilical hernia shows no changes from comparison. No suspicious bony findings. IMPRESSION: Contrast enhanced CT abdomen and pelvis showing no acute or emergent finding. Above detailed findings show no significant change from the 2019 study.
--- NOTE | 2021-05-06 11:08 | EDPHYS ---
Physician Documentation [facility] Name: Steph Ramirez Age: 30 yrs Sex: Female : 1990 Arrival Date: 05/06/2021 Time: 09:39 Bed 4 Private MD: Noel Porter E ED Physician Mitchell Newby HPI: 05/06 11:04 This 30 yrs old Female presents to ER via Ambulatory with complaints of Abdominal Pain. kb 11:04 The patient presents with abdominal pain in the periumbilical area. Onset: The kb symptoms/episode began/occurred 2 week(s) ago. The symptoms do not radiate. Associated signs and symptoms: none. The symptoms are described as constant. Modifying factors: The symptoms are alleviated by nothing, the symptoms are aggravated by nothing. Severity of pain: At its worst the pain was moderate in the emergency department the pain is unchanged. The patient has not experienced similar symptoms in the past. The patient has not recently seen a physician. 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 - Social history:: Smoking status: Patient denies any tobacco usage or history of. ROS: 11:02 Constitutional: Negative for fever, chills, and weight loss. kb 11:02 Abdomen/GI: Positive for abdominal pain, Negative for nausea, vomiting, and diarrhea. 11:02 All other systems are negative. Exam: 11:02 Constitutional: This is a well developed, well nourished patient who is awake, alert, kb and in no acute distress. Head/Face: Normocephalic, atraumatic. ENT: Moist Mucous membranes Respiratory: Respirations even and unlabored. No increased work of breathing. Talking in full sentences Skin: Warm, dry with normal turgor. Normal color. MS/ Extremity: Pulses equal, no cyanosis. Neurovascular intact. Full, normal range of motion. Neuro: Awake and alert, GCS 15, oriented to person, place, time, and situation. Moves all extremities. Normal gait. Psych: Awake, alert, with orientation to person, place and time. Behavior, mood, and affect are within normal limits. 11:02 Abdomen/GI: Inspection: abdomen appears normal, Bowel sounds: normal, Palpation: soft, in all quadrants, moderate abdominal tenderness, in the umbilical area. Vital Signs: 09:47 BP 129 / 69; Pulse 79; Resp 16; Temp 98.6; Pulse Ox 100% ; Pain 3/10; vg1 09:51 Weight 72.57 kg; Height 5 ft. 2 in. (157.48 cm); vg1 10:30 BP 117 / 79; Pulse 76; Resp 18; Pulse Ox 99% on R/A; ashton 09:51 Body Mass Index 29.26 (72.57 kg, 157.48 cm) vg1 MDM: 09:42 Patient medically screened. kb 10:56 Data reviewed: vital signs, nurses notes. Data interpreted: Pulse oximetry: on room air kb is 99 %. Interpretation: normal. Counseling: I had a detailed discussion with the patient and/or guardian regarding: the historical points, exam findings, and any diagnostic results supporting the discharge/admit diagnosis, lab results, radiology results, the need for outpatient follow up, a family practitioner, to return to the emergency department if symptoms worsen or persist or if there are any questions or concerns that arise at home. 11:08 ED course: Denies any urinary symptoms. Has appt with GI next week. kb 05/06 09:47 Order name: Basic Metabolic Panel kb 05/06 09:47 Order name: CBC with Diff; Complete Time: 10:06 kb 05/06 09:47 Order name: Hepatic Function; Complete Time: 10:22 kb 05/06 09:47 Order name: Lipase; Complete Time: 10:22 kb 05/06 09:47 Order name: Urine Microscopic Only; Complete Time: 10:55 kb 05/06 09:47 Order name: Basic Metabolic Panel; Complete Time: 10:22 EDMS 05/06 09:47 Order name: IV Saline Lock; Complete Time: 10:05 kb 05/06 09:47 Order name: Labs collected and sent; Complete Time: 10:06 kb 05/06 09:47 Order name: Urine Dipstick-Ancillary (obtain specimen); Complete Time: 11:04 kb 05/06 09:47 Order name: Urine Test (obtain specimen); Complete Time: 11:04 kb 05/06 09:47 Order name: CT Abd/Pelvis - IV Contrast Only; Complete Time: 10:55 kb 05/06 10:47 Order name: Urine Dipstick-Ancillary; Complete Time: 10:55 EDMS 05/06 10:47 Order name: Urine --Ancillary (enter results) eb Administered Medications: No medications were administered Disposition: 11:59 Co-signature as Attending Physician, Mitchell Newby MD. rn Disposition Summary: 05/06/21 11:07 Discharge Ordered Location: Home kb Condition: Stable kb Diagnosis - Abdominal pain, Generalized kb Followup: kb - With: Emergency Department - When: As needed - Reason: Worsening of condition Followup: kb - With: Private Physician - When: 2 - 3 days - Reason: Recheck today's complaints, Continuance of care, Re-evaluation by your physician Discharge Instructions: - Discharge Summary Sheet kb - Abdominal Pain, Adult, [id number] kb Forms: - Medication Reconciliation Form kb - Thank You Letter kb - Antibiotic Education kb - Prescription Opioid Use kb Signatures: Dispatcher [employer] EDME Ruby Weinberg, STEWARD/STEWARDESS SECOND-C STEWARD/STEWARDESS SECOND-Jhonyb Mitchell Newby MD MD rn Sandrine Baugh RN RN vg1
--- NOTE | 2021-05-06 11:08 | ER ---
Nurse's Notes [facility] Name: Steph Ramirez Age: 30 yrs Sex: Female : 1990 Arrival Date: 05/06/2021 Time: 09:39 Bed 4 Private MD: Noel Porter E Diagnosis: Abdominal pain, Generalized Presentation: 05/06 09:47 Chief complaint: Patient states: umbilical pain x 2 weeks; states dull pain that comes vg1 and goes; states pain 'at times moves to the left side of stomach'. Denies N/V/D. Coronavirus screen: Vaccine status: Patient reports receiving the 2nd dose of the covid vaccine. Client denies travel out of the [place] in the last 14 days. Ebola Screen: Patient negative for fever greater than or equal to 101.5 degrees Fahrenheit, and additional compatible Ebola Virus Disease symptoms. Initial Sepsis Screen: Does the patient meet any 2 criteria? No. Patient's initial sepsis screen is negative. Does the patient have a suspected source of infection? No. Patient's initial sepsis screen is negative. Risk Assessment: Do you want to hurt yourself or someone else? Patient reports no desire to harm self or others. Onset of symptoms was April 22, 2021. 09:47 Method Of Arrival: Ambulatory vg1 09:47 Acuity: SLOAN 3 vg1 Triage Assessment: 09:49 General: Appears in no apparent distress. comfortable, Behavior is calm, cooperative. vg1 Pain: Complains of pain in umbilical area. 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 - Social history:: Smoking status: Patient denies any tobacco usage or history of. Screenin:54 Abuse screen: Denies threats or abuse. Denies injuries from another. Nutritional ashton screening: No deficits noted. Tuberculosis screening: No symptoms or risk factors identified. Fall Risk IV access (20 points). Assessment: 09:47 Pain: Complains of pain in abdomen. GI: Bowel sounds present X 4 quads. Abd is soft ashton Abdomen is tender to palpation in epigastric area, right upper quadrant and left upper quadrant. Vital Signs: 09:47 BP 129 / 69; Pulse 79; Resp 16; Temp 98.6; Pulse Ox 100% ; Pain 3/10; vg1 09:51 Weight 72.57 kg; Height 5 ft. 2 in. (157.48 cm); vg1 10:30 BP 117 / 79; Pulse 76; Resp 18; Pulse Ox 99% on R/A; ashton 09:51 Body Mass Index 29.26 (72.57 kg, 157.48 cm) vg1 ED Course: 09:39 Patient arrived in ED. as 09:39 Noel Porter MD is Private Physician. as 09:40 Ruby Weinberg FNP-C [facility]. kb 09:40 Mitchell Newby MD is Attending Physician. kb 09:43 Kesha Phan, EVANS is Primary Nurse. ashton 09:49 Triage completed. vg1 09:49 Arm band placed on. vg1 09:53 No provider procedures requiring assistance completed. Inserted saline lock: 20 gauge ashton in right antecubital area, using aseptic technique. 09:54 Patient has correct armband on for positive identification. Bed in low position. ashton 10:05 Basic Metabolic Panel Sent. ashton 10:06 Hepatic Function Sent. ashton 10:06 Lipase Sent. ashton 10:33 CT Abd/Pelvis - IV Contrast Only In Process Unspecified. EDMS 11:13 IV discontinued, intact, Pressure dressing applied. ashton Administered Medications: No medications were administered Outcome: 11:07 Discharge ordered by . kb 11:13 Discharged to home ambulatory. ashton 11:13 Condition: good 11:13 Discharge instructions given to patient. 11:14 Patient left the ED. ashton Signatures: Dispatcher [employer] EDMS Ruby Weinberg FNP-C FNP-Ckb Martinez, Amelia as Garcia, Victoria, EVANS RN [facility] ([place], [place]) Kesha Phan RN RN ashton
[2021-05-06 11:49] VITALS: TEMP 98.6
[2021-05-06 11:50] VITALS: BP 117/79; O2SAT 99
[2021-05-06 12:03] LABS: Urine Specific Gravity/Preg 1.025 (1.005-1.030)
== END 2021-05-06 11:14 | disposition home or self-care (01) ==
LOC: ER 09:37
DX: R10.84 Generalized abdominal pain (principal); F41.9 Anxiety disorder, unspecified
CPT/HCPCS: 85025; 80048; 36415; 81025; 80076; 83690; 74177; 99283; Q9967; 81003; 81015

== ENCOUNTER 2022-03-06 19:25 | Emergency (ER) | payer OTHER ==
--- OUTSIDE RECORDS SUMMARY | 2022-03-06 19:27 | XMS REPORT | Continuity of Care Document ---
:1990 Author Organization [facility] t Address [address] [place] [address] Care Team Providers Name Role Phone SHAHEED LINARES Primary Care Physician Unavailable JUSTIN YEBOAH Attending Clinician Unavailable MELBA GREGORY Attending Clinician Unavailable ROMARIO TEMPLE Attending Clinician Unavailable PARTHA ADAME Attending Clinician Unavailable MORTEZA EDEN Attending Clinician Unavailable DREA ACEVES Attending Clinician Unavailable JOYCE BRITO Attending Clinician Unavailable KOMAL GUTIERREZ Attending Clinician Unavailable Joyce Brito MD Attending Clinician Laurie Khan Attending Clinician Unavailable JOYCE BRITO Admitting Clinician Unavailable Laurie Khan Admitting Clinician Unavailable Payers Payer Name Policy Type Policy Number Effective Date Expiration Date [facility] [id number] 2019 MEDICAID 00:00:00 [facility] [id number] 2020 [facility] 00:00:00 Problems This patient has no known problems. Allergies, Adverse Reactions, Alerts Allergy Allergy Status Severity Reaction(s) Onset Inactive Treating Comm ents Source Name Type Date Date Clinician NO KNOWN Drug Active Univers ALLERGIE Class ity of S [facility] Medications This patient has no known medications. Procedures This patient has no known procedures. Encounters Start End Encounter Admission Attending Care Care Encounter Source Date/Time Date/Time Type Type Clinicians Facility Department ID 2020-12-28 Outpatient P [facility] [id number] [facility] 2022-02-13 Outpatient R ADUM, [facility] [id number] Univers 15:00:00 15:00:00 JUSTIN [facility] 2022-01-16 2022-01-16 Outpatient R ADUM, [facility] [id number] Univers 15:00:00 15:00:00 [facility] 2021-12-26 2021-12-26 Outpatient R ADUM, [facility] [id number] Univers 13:30:00 13:30:00 [facility] 2021-11-28 2021-11-28 Outpatient R ADUM, [facility] [id number] Univers 13:30:00 13:30:00 [facility] 2021-10-24 2021-10-24 Outpatient R ALYSONUM, [facility] [id number] Univers 09:00:00 09:00:00 [facility] 2021-10-05 2021-10-05 Outpatient R ADUM, [facility] [id number] Univers 09:00:00 09:00:00 [facility] 2021-03-03 2021-03-03 Outpatient R BRI, [facility] [id number] Univers 14:00:00 14:00:00 [facility] 2020-09-27 2020-09-27 Outpatient R ALYSONUM, [facility] [id number] Univers 13:00:00 13:00:00 [facility] 2020-09-19 2020-09-19 Outpatient R ADUM, [facility] [id number] Univers 11:00:00 11:00:00 [facility] 2020-08-25 2020-08-25 Outpatient R ADUM, [facility] [id number] Univers 13:00:00 13:00:00 [facility] 2020-05-09 2020-05-09 Outpatient R MAVERICK, [facility] [id number] Univers 15:15:00 15:15:00 ROMARIO patel [facility] 2020-04-24 2020-04-24 Outpatient R MAVERICK, [facility] [id number] Univers 15:45:00 15:45:00 ROMARIO delbert [facility] 2020-03-31 2020-03-31 Outpatient R DEEP, [facility] [id number] Univers 18:00:00 18:00:00 PARTHA patel o f [facility] 2020-03-27 2020-03-27 Outpatient R VERONICANena, [facility] [id number] Univers 18:00:00 18:00:00 MORTEZA patel [facility] 2020-03-27 2020-03-27 Outpatient R MAVERICK, [facility] [id number] Univers 15:00:00 15:00:00 ROMARIO [facility] 2020-02-28 2020-02-28 [facility] [id number] Univers 09:00[facility]00 [facility]-10 2020-02-10 Outpatient R KETAN, [facility] [id number] Univers 13:20:00 13:20:00 DREA [facility] 2020-01-03 2020-01-03 Outpatient R BRITOJOYCE [facility] [id number] Univers 15:00:00 15:00:[facility] 2019-11-30 2019-11-30 Outpatient R DARYL JOYCE [facility] [id number] Univers 10:30:00 10:30:00 [facility] 2019-11-29 2019-11-29 Outpatient R JOYCE BRITO [facility] [id number] Univers 14:30:00 14:30:00 [facility] 2019-11-05 2019-11-05 Outpatient R BRITOJOYCE [facility] [id number] Univers 10:45:00 10:45:00 [facility] 2019-11-02 2019-11-02 Outpatient R [facility] [id number] Univers 16:40:00 16:40:00 [facility] 2019-10-22 2019-10-22 Outpatient R EDILIA [facility] [id number] Univers 11:00:00 11:00:00 JUSTIN [facility] 2019-10-13 2019-10-13 Outpatient R BRI [facility] [id number] Univers 16:00:00 16:00:00 MELBA delbert [facility] 2019-10-09 2019-10-09 Outpatient R MATT [facility] [id number] Univers 13:20:00 13:20:00 KOMAL delbert [facility] 2019-08-25 2019-08-25 Outpatient R JOYCE BRITO [facility] [id number] Univers 11:30:00 11:30:00 [facility] 2019-08-23 2019-08-23 [facility] [id number] 13:41:19 16:06:53 Visit Franko Jimenez [id number] Yazan [id number] Professio [id number] [address] 2019-08-23 2019-08-23 Outpatient R JOYCE BRITO [facility] [id number] Univers 13:30:00 13:30:00 [facility] 2019-08-23 2019-08-23 Outpatient R JOYCE BRITO [facility] [id number] Univers 13:30:00 13:30:00 [facility] 2019-07-22 2019-07-22 Outpatient R JOYCE BRITO [facility] [id number] Univers 13:00:00 13:00:00 [facility] 2019-06-23 2019-06-23 Outpatient R MAVERICK [facility] [id number] Univers 10:00:00 10:00:00 ROMARIO [facility] 2019-06-22 2019-06-22 Outpatient R [facility] [id number] Univers 13:00:00 13:00:00 [facility] 2019-06-17 2019-06-17 Outpatient R MAVERICK [facility] [id number] Univers 10:15:00 10:15:00 [facility] 2019-06-15 2019-06-15 Outpatient P [facility] [id number] Univers 14:15:00 14:15:00 [facility] 2019-06-08 2019-06-08 Outpatient R [facility] [id number] Univers 09:00:00 09:00:00 [facility] 2019-06-03 2019-06-03 Outpatient R DARYL JOYCE [facility] [id number] Univers 11:30:00 11:30:00 [facility] 2019-05-19 2019-05-19 Outpatient R MAVERICK [facility] [id number] Univers 11:15:00 11:15:00 [facility] 2019-05-17 2019-05-17 Outpatient R MAVERICK [facility] [id number] Univers 10:00:00 10:00:00 [facility] 2019-05-03 2019-05-03 Outpatient R JOYCE BRITO [facility] [id number] Univers 10:00:00 10:00:00 [facility] 2019-03-04 2019-03-06 [id number] [facility] 15:00:00 00:09:[address] [place] [address]' [facility] Results This patient has no known results.
[2022-03-06] MEDS ORDERED: DIPHENHYDRAMINE 50 MG/ML VIAL ONE (20:33)
[2022-03-06] MEDS ORDERED: NA CHLORIDE 0.9% 50 ML IV ONE (20:33)
[2022-03-06] MEDS ORDERED: METOCLOPRAMIDE 10 MG/2mL INJ ONE (20:33)
[2022-03-06] MEDS ORDERED: NA CHLORIDE 0.9% 1,000 ML ONE (20:33)
[2022-03-06] MEDS ORDERED: KETOROLAC 30 MG/ML INJ ONE (20:33)
--- NOTE | 2022-03-06 20:52 | RAD REPORT ---
EXAM DESCRIPTION: CT - Head Brain Wo Cont - 03/06/2022 8:37 pm CLINICAL HISTORY: Headache COMPARISON: None. TECHNIQUE: Computed axial tomography of the head was obtained. IV contrast was not requested. All CT scans are performed using dose optimization technique as appropriate and may include automated exposure control or mA/KV adjustment according to patient size. FINDINGS: An intracranial bleed is not seen . The ventricles are normal in caliber. No significant hypodense areas within the brain visualized No extra-axial fluid collection is noted. Fluid within the sinuses/ mastoids is not seen. IMPRESSION: No acute intracranial abnormality is seen. If patient's symptoms persist MRI of the bra in would be recommended.
--- NOTE | 2022-03-06 22:03 | EDPHYS ---
Physician Documentation [facility] Name: Steph Ramirez Age: 31 yrs Sex: Female : 1990 Arrival Date: 03/06/2022 Time: 19:29 Bed 23 Private MD: ED Physician Travon Espinoza HPI: 03/06 22:26 This 31 yrs old Female presents to ER via Ambulatory with complaints of Headache, kb Numbness Of Face, Neck Problem. 22:26 The patient complains of pain to the left side of head. The patient describes the kb headache as waxing and waning. Onset: The symptoms/episode began/occurred 3 week(s) ago. Associated signs and symptoms: Pertinent positives: numbness to left side of face, neck pain. Severity of symptoms: At its worst the pain was mild, moderate, in the emergency department the pain is unchanged. Headache History: Denies prior headaches. The symptoms are alleviated by nothing. the symptoms are aggravated by nothing. The patient has not experienced similar symptoms in the past. The patient has not recently seen a physician. Pt reports headache for 3 weeks with neck pain. States the pain starts on left side of head and moves around to the right side. Believes it is coming from tension in her neck. No spinal pain. Muscles feel tense. . 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 - Social history:: Smoking status: Patient denies any tobacco usage or history of. ROS: 22:25 Constitutional: Negative for fever, chills, and weight loss. kb 22:25 Neck: Positive for pain with movement. 22:25 Neuro: Positive for headache. 22:25 All other systems are negative. Exam: 22:25 Constitutional: This is a well developed, well nourished patient who is awake, alert, kb and in no acute distress. Head/Face: Normocephalic, atraumatic. ENT: Moist Mucous membranes Neck: Trachea midline, no thyromegaly or masses palpated, and no cervical lymphadenopathy. Supple, full range of motion without nuchal rigidity, or vertebral point tenderness. No Meningismus. Cardiovascular: Regular rate and rhythm with a normal S1 and S2. No gallops, murmurs, or rubs. No pulse deficits. Respiratory: Respirations even and unlabored. No increased work of breathing. Talking in full sentences Abdomen/GI: Soft, non-tender. No distention Skin: Warm, dry with normal turgor. Normal color. MS/ Extremity: Pulses equal, no cyanosis. Neurovascular intact. Full, normal range of motion. Neuro: Awake and alert, GCS 15, oriented to person, place, time, and situation. Moves all extremities. Normal gait. Psych: Awake, alert, with orientation to person, place and time. Behavior, mood, and affect are within normal limits. Vital Signs: 19:36 BP 123 / 94; Pulse 89; Resp 18; Temp 99(TE); Pulse Ox 100% on R/A; Weight 73.03 kg (R); Height 5 ft. 2 in. (157.48 cm); Pain 2/10; 20:00 BP 128 / 85; Pulse 69; Resp 18; Pulse Ox 100% on R/A; eh3 21:00 BP 122 / 80; Pulse 82; Resp 18; Pulse Ox 100% on R/A; eh3 22:00 BP 122 / 80; Pulse 62; Resp 18; Pulse Ox 100% on R/A; eh3 19:36 Body Mass Index 29.45 (73.03 kg, 157.48 cm) [place] Coma Score: 22:24 Eye Response: spontaneous(4). Verbal Response: oriented(5). Motor Response: obeys kb commands(6). Total: 15. MDM: 19:55 Patient medically screened. kb 22:24 Data reviewed: vital signs, nurses notes. Data interpreted: Pulse oximetry: on room air kb is 100 %. Interpretation: normal. Counseling: I had a detailed discussion with the patient and/or guardian regarding: the historical points, exam findings, and any diagnostic results supporting the discharge/admit diagnosis, radiology results, the need for outpatient follow up, a family practitioner, to return to the emergency department if symptoms worsen or persist or if there are any questions or concerns that arise at home. ED course: Pt has appt with PCP on Friday for follow up. . 22:25 Differential diagnosis: migraine, tension headache, muscle strain, radiculopathy. kb 03/06 20:17 Order name: CT Head Brain wo Cont; Complete Time: 21:27 kb 03/06 20:17 Order name: IV Start; Complete Time: 20:34 kb Administered Medications: 21:15 Drug: NS 0.9% 1000 ml Route: IV; Rate: 1000 ml; Site: right antecubital; eh3 22:15 Follow up: IV Status: Completed infusion; IV Intake: 1000ml eh3 21:15 Drug: Ketorolac 15 mg Route: IVP; Site: right antecubital; eh3 22:15 Follow up: Response: Pain is decreased eh3 21:15 Drug: Reglan (metoCLOPramide) 10 mg Route: IVP; Site: right antecubital; eh3 22:15 Follow up: Response: Pain is decreased eh3 21:15 Drug: Benadryl (diphenhydrAMINE) 12.5 mg Route: IVP; Site: right antecubital; eh3 22:15 Follow up: Response: Pain is decreased eh3 Disposition Summary: 03/06/22 22:02 Discharge Ordered Location: Home kb Condition: Stable kb Diagnosis - Headache kb Followup: kb - With: Emergency Department - When: As needed - Reason: Worsening of condition, Recheck today's complaints Followup: kb - With: Private Physician - When: 2 - 3 days - Reason: Recheck today's complaints, Continuance of care, Re-evaluation by your physician Discharge Instructions: - Discharge Summary Sheet kb - General Headache Without Cause, [id number] kb Forms: - Medication Reconciliation Form kb - Thank You Letter kb - Antibiotic Education kb - Prescription Opioid Use kb Signatures: Dispatcher [employer] Ruby Canales FNP-C FNP-Estrellita Pan, Azalea Stevenson RN, RN RN eh3
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
[2022-03-06 22:49] VITALS: TEMP 99; O2SAT 100
[2022-03-06 22:57] VITALS: BP 122/80
== END 2022-03-06 22:30 | disposition home or self-care (01) ==
LOC: ER 19:25
DX: R51.9 Headache, unspecified (principal); F41.9 Anxiety disorder, unspecified
CPT/HCPCS: 96361; 70450; 96375; 96374; 99284; J2765; J1200; J7030

== ENCOUNTER 2022-10-19 08:02 | Emergency (ER) | payer OTHER ==
--- OUTSIDE RECORDS SUMMARY | 2022-10-19 08:07 | XMS REPORT | Continuity of Care Document ---
:1990 Author Organization [facility] t Address [address] [place] [address] Care Team Providers Name Role Phone Vandana Alexis Primary Care Physician TAMMY MARIO Attending Clinician Unavailable ERICA REDD Attending Clinician Unavailable VANDANA SOTELO Attending Clinician Unavailable SOLITARIO SUGGS Attending Clinician Unavailable SOLITARIO SUGGS Attending Clinician Unavailable 2, [facility] Attending Clinician Unavailable Vandana Alexis Attending Clinician Doctor Unassigned, [place] Attending Clinician Unavailable Tammy Mario MD Attending Clinician DREA ACEVES Attending Clinician Unavailable BATOOL HAMPTON Attending Clinician Unavailable BATOOL HAMPTON Attending Clinician Unavailable MELBA GREGORY Attending Clinician Unavailable ROMARIO TEMPLE Attending Clinician Unavailable PARTHA ADAME Attending Clinician Unavailable MORTEZA EDEN Attending Clinician Unavailable JOYCE BRITO Attending Clinician Unavailable KOMAL GUTIERREZ Attending Clinician Unavailable Joyce Brito MD Attending Clinician Laurie Khan Attending Clinician Unavailable JOYCE BRITO Admitting Clinician Unavailable Laurie Khan Admitting Clinician Unavailable Payers Payer Name Policy Type Policy Number Effective Date Expiration Date [facility] [id number] 2019 MEDICAID 00:00:00 [facility] [id number] 2022 CHOICE [place] STAR 00:00:00 Problems Condition Condition Condition Status Onset Resolution Last Treating Co mments Source Name Details Category Date Date Treatment Clinician Date Mastodynia Mastodynia Disease Active U nivers 5-17 ity of 00:00: [place] [facility] Family Family Disease Active Univers history of history of 5-17 it y of breast breast 00:00: [place] cancer in cancer in [facility] female female Branch BMI BMI Disease Active Univers 29.0-29.9, 29.0-29.9, 5-17 it y of adult adult 00:00: [place] [address] Medical Branch Presence Presence Disease Active Unive rs of IUD of IUD 7- ity of 00:00: [place] [address] Medical Branch Obesity Obesity Disease Active Univers (BMI (BMI 3-18 ity of 30-39.9) 30-39.9) 00:00: [place] [facility] Branch Anxiety Anxiety Disease Active 2016-03 Univers disorder disorder 2-11 ity of 00:00: [place] [facility] Electrocar Electrocar Disease Active 2016-03 U melina diogram diogram 2-11 ity of abnormal abnormal 00:00: [place] [facility] Irritable Irritable Disease Active 2016-03 Uni vers bowel bowel 2-11 ity of syndrome syndrome 00:00: [place] 00 Medical Branch Shortness Shortness Disease Active 2016-03 Uni vers of breath of breath 2-11 ity of 00:00: [place] [facility] Palpitatio Palpitatio Disease Active 2016-03 U melina ns ns 2-08 ity of 00:00: [place] [facility] Ventricula Ventricula Disease Active 2016-03 U melina r r 2-08 it[place] of premature premature [place] depolar[place] depolariza 00 Me dical tion tion Branch Allergies, Adverse Reactions, Alerts Allergy Allergy Status Severity Reaction(s) Onset Inactive Treating Comm ents Source Name Type Date Date Clinician NO KNOWN Drug Active Univers ALLERGIE Class ity of S [facility] Social History Social Habit Start Date Stop Date Quantity Comments Source Gender identity Universit y of [facility] Sexual orientation Univer sity of [facility] Alcohol intake 2022-10-04 2022-10-04 Current drinker Unive rsity of 00:00:00 00:00:00 of alcohol [place] [facility] (finding) Branch Exposure to 2022-07-13 2022-07-23 Not sure [facility] SARS-CoV-2 (event) 00:00:00 13:17:00 [facility] Tobacco use and 2022-07-23 2022-07-23 Smokeless Universit y of exposure 00:00:00 00:00:00 tobacco non-user [facility] dical Branch Alcohol Comment 2022-07-23 2022-07-23 ocassional/ Universi ty of 00:00:00 00:00:00 rarely [facility] History of Social 2022-07-08 2022-07-08 Univers ity of function 00:00:00 00:00:00 [facility] Sex [birth year] Universit y of 00:00:00 00:00:00 [facility] Smoking Status Start Date Stop Date Source Never smoked tobacco [facility] Medications Ordered Filled Start Stop Current Ordering Indication Dosage Frequency Signature Comments Components Source Medication Medication Date Date Medication? Clinician (SIG) Name Name dicyclomine Yes Take by Uni vers HCl 8-04 mouth. ity of (DICYCLOMIN 11:11: [place] E ORAL) Medical Branch dicyclomine Yes Take by Uni vers HCl 8-04 mouth. ity of (DICYCLOMIN 11:11: [place] E ORAL) Medical Branch dicyclomine Yes Take by Uni vers HCl 8-04 mouth. ity of (DICYCLOMIN 11:11: [place] E ORAL) Medical Branch dicyclomine Yes Take by Uni vers HCl 8-04 mouth. ity of (DICYCLOMIN 11:11: [place] E ORAL) Medical Branch dicyclomine Yes Take by Uni vers HCl 8-04 mouth. ity of (DICYCLOMIN 11:11: [place] E ORAL) Medical Branch dicyclomine Yes Take by Uni vers HCl 8-04 mouth. ity of (DICYCLOMIN 11:11: [place] E ORAL) Medical Branch dicyclomine Yes Take by Uni vers HCl 8-04 mouth. ity of (DICYCLOMIN 11:11: [place] E ORAL) Medical Branch dicyclomine Yes Take by Uni vers HCl 8-04 mouth. ity of (DICYCLOMIN 11:11: [place] E ORAL) Medical Branch dicyclomine Yes Take by Uni vers HCl 8-04 mouth. ity of (DICYCLOMIN 11:11: [place] E ORAL) Medical Branch dicyclomine Yes Take by Uni vers HCl 8-04 mouth. ity of (DICYCLOMIN 11:11: [place] E ORAL) Medical Branch Nitrofurant 2022- Yes [id number] 100mg Take 1 Univers oin&Nit. 09-06 07-15 capsule by ity of Macrocryst 00:00: 04:59 mouth [place] (MACROBID) 00 :00 the Medical 100 mg morning Branch capsule and 1 capsule in the evening. Do all this for 7 days. Nitrofurant 2022- Yes [id number] 100mg Take 1 Univers oin&Nit. 09-06-15 capsule by ity of Macrocryst 00:00: 04:59 mouth [place] (MACROBID) 00 :00 the Medical 100 mg morning Branch capsule and 1 capsule in the evening. Do all this for 7 days. dicyclomine Yes Take by Uni vers HCl 5-23 mouth. ity of (DICYCLOMIN 13:33: [place] E ORAL) Medical Branch ondansetron Yes 4mg Take 1 Univ ers 4 mg 5-23 tablet by ity of disintegrat 13:33: mouth [place] ing tablet 05 every 8 Medica l (eight) Branch hours as needed. dicyclomine 0 Yes Take by Uni vers HCl 5-23 mouth. ity of (DICYCLOMIN 13:33: [place] E ORAL) Medical Branch ondansetron 0 Yes 4mg Take 1 Univ ers 4 mg 5-23 tablet by ity of disintegrat 13:33: mouth [place] ing tablet 05 every 8 Medica l (eight) Branch hours as needed. dicyclomine 0 Yes Take by Uni vers HCl 5-23 mouth. ity of (DICYCLOMIN 13:33: [place] E ORAL) 05 Medical Branch ondansetron 2023-0 Yes 4mg Take 1 Univ ers 4 mg 5-23 tablet by ity of disintegrat 13:33: mouth [place] ing tablet 05 every 8 Medica l (eight) Branch hours as needed. dicyclomine 2023-0 Yes Take by Uni vers HCl 5-23 mouth. ity of (DICYCLOMIN 13:33: [place] E ORAL) 05 Medical Branch ondansetron 2023-0 Yes 4mg Take 1 Univ ers 4 mg 5-23 tablet by ity of disintegrat 13:33: mouth [place] ing tablet 05 every 8 Medica l (eight) Branch hours as needed. dicyclomine 2023-0 Yes Take by Uni vers HCl 5-23 mouth. ity of (DICYCLOMIN 13:33: [place] E ORAL) 05 Medical Branch ondansetron 3-0 Yes 4mg Take 1 Univ ers 4 mg 5-23 tablet by ity of disintegrat 13:33: mouth [place] ing tablet 05 every 8 Medica l (eight) Branch hours as needed. dicyclomine 2023-0 Yes Take by Uni vers HCl 5-23 mouth. ity of (DICYCLOMIN 13:33: [place] E ORAL) 05 Medical Branch ondansetron 3-0 Yes 4mg Take 1 Univ ers 4 mg 5-23 tablet by ity of disintegrat 13:33: mouth [place] ing tablet 05 every 8 Medica l (eight) Branch hours as needed. dicyclomine 2023-0 Yes Take by Uni vers HCl 5-23 mouth. ity of (DICYCLOMIN 13:33: [place] E ORAL) 05 Medical Branch ondansetron 2023-0 Yes 4mg Take 1 Univ ers 4 mg 5-23 tablet by ity of disintegrat 13:33: mouth [place] ing tablet 05 every 8 Medica l (eight) Branch hours as needed. dicyclomine 2023-0 Yes Take by Uni vers HCl 5-23 mouth. ity of (DICYCLOMIN 13:33: [place] E ORAL) 05 Medical Branch ondansetron 2023-0 Yes 4mg Take 1 Univ ers 4 mg 5-23 tablet by ity of disintegrat 13:33: mouth [place] ing tablet 05 every 8 Medica l (eight) Branch hours as needed. ondansetron 2023-0 Yes 4mg Take 1 Univ ers 4 mg 5-23 tablet by ity of disintegrat 13:33: mouth [place] ing tablet 05 every 8 Medica l (eight) Branch hours as needed. ondansetron 2023-0 Yes 4mg Take 1 Univ ers 4 mg 5-23 tablet by ity of disintegrat 13:33: mouth [place] ing tablet 05 every 8 Medica l (eight) Branch hours as needed. ondansetron 2023-0 Yes 4mg Take 1 Univ ers 4 mg 5-23 tablet by ity of disintegrat 13:33: mouth [place] ing tablet 05 every 8 Medica l (eight) Branch hours as needed. ondansetron 2023-0 Yes 4mg Take 1 Univ ers 4 mg 5-23 tablet by ity of disintegrat 13:33: mouth [place] ing tablet 05 every 8 Medica l (eight) Branch hours as needed. ondansetron 2023-0 Yes 4mg Take 1 Univ ers 4 mg 5-23 tablet by ity of disintegrat 13:33: mouth [place] ing tablet 05 every 8 Medica l (eight) Branch hours as needed. ondansetron 2023-0 Yes 4mg Take 1 Univ ers 4 mg 5-23 tablet by ity of disintegrat 13:33: mouth [place] ing tablet 05 every 8 Medica l (eight) Branch hours as needed. ondansetron 2023-0 Yes 4mg Take 1 Univ ers 4 mg 5-23 tablet by ity of disintegrat 13:33: mouth [place] ing tablet 05 every 8 Medica l (eight) Branch hours as needed. ondansetron 2023-0 Yes 4mg Take 1 Univ ers 4 mg 5-23 tablet by ity of disintegrat 13:33: mouth [place] ing tablet 05 every 8 Medica l (eight) Branch hours as needed. ondansetron 2023-0 Yes 4mg Take 1 Univ ers 4 mg 5-23 tablet by ity of disintegrat 13:33: mouth [place] ing tablet 05 every 8 Medica l (eight) Branch hours as needed. ondansetron 2023-0 Yes 4mg Take 1 Univ ers 4 mg 5-23 tablet by ity of disintegrat 13:33: mouth [place] ing tablet 05 every 8 Medica l (eight) Branch hours as needed. SERTraline 2023-0 Yes [id number] 50mg Take 1 Univers (ZOLOFT) 50 5-08 tablet by ity of mg tablet 00:00: [place] 00 the Medical morning. Branch busPIRone 5 2022-0 Yes [id number] 5mg Take 1 Univers mg tablet 5-08 tablet by ity o f 00:00: mouth 2 00 (two) Medical times Branch daily as needed for Other (anxiety). triamcinolo 3-0 Yes [id number] Apply to Univers ne 5-08 area(s) 2 ity of acetonide 00:00: (two) [place] 0.1 % cream 00 times Medical daily. Branch SERTraline 2022-0 Yes [id number] 50mg Take 1 Univers (ZOLOFT) 50 5-08 tablet by ity of mg tablet 00:00: [place] 00 the Medical morning. Branch busPIRone 5 2022-0 Yes [id number] 5mg Take 1 Univers mg tablet 5-08 tablet by ity o f 00:00: mouth 2 00 (two) Medical times Branch daily as needed for Other (anxiety). triamcinolo 2022-0 Yes [id number] Apply to [facility] ne 5-08 area(s) 2 ity of acetonide 00:00: (two) [place] 0.1 % cream 00 times Medical daily. Branch SERTraline 2022-0 Yes [id number] 50mg Take 1 Univers (ZOLOFT) 50 5-08 tablet by ity of mg tablet 00:00: [place] 00 the Medical morning. Branch busPIRone 5 2022-0 Yes [id number] 5mg Take 1 Univers mg tablet 5-08 tablet by ity o f 00:00: mouth 2 00 (two) Medical times Branch daily as needed for Other (anxiety). triamcinolo 2022-0 Yes [id number] Apply to Univers ne 5-08 area(s) 2 ity of acetonide 00:00: (two) [place] 0.1 % cream 00 times Medical daily. Branch SERTraline 2022-0 Yes [id number] 50mg Take 1 Univers (ZOLOFT) 50 5-08 tablet by ity of mg tablet 00:00: [place] 00 the Medical morning. Branch busPIRone 5 2022-0 Yes [id number] 5mg Take 1 Univers mg tablet 5-08 tablet by ity o f 00:00: mouth 2 00 (two) Medical times Branch daily as needed for Other (anxiety). triamcinolo 3-0 Yes [id number] Apply to Univers ne 5-08 area(s) 2 ity of acetonide 00:00: (two) [place] 0.1 % cream 00 times Medical daily. Branch SERTraline 2022-0 Yes [id number] 50mg Take 1 Univers (ZOLOFT) 50 5-08 tablet by ity of mg tablet 00:00: [place] 00 the Medical morning. Branch busPIRone 5 2022-0 Yes [id number] 5mg Take 1 Univers mg tablet 5-08 tablet by ity o f 00:00: mouth 2 00 (two) Medical times Branch daily as needed for Other (anxiety). triamcinolo 3-0 Yes [id number] Apply to Univers ne 5-08 area(s) 2 ity of acetonide 00:00: (two) [place] 0.1 % cream 00 times Medical daily. Branch SERTraline 2022-0 Yes [id number] 50mg Take 1 Univers (ZOLOFT) 50 5-08 tablet by ity of mg tablet 00:00: [place] 00 the Medical morning. Branch busPIRone 5 2022-0 Yes [id number] 5mg Take 1 Univers mg tablet 5-08 tablet by ity o f 00:00: mouth 2 00 (two) Medical times Branch daily as needed for Other (anxiety). triamcinolo 3-0 Yes [id number] Apply to Univers ne 5-08 area(s) 2 ity of acetonide 00:00: (two) [place] 0.1 % cream 00 times Medical daily. Branch SERTraline 2022-0 Yes [id number] 50mg Take 1 Univers (ZOLOFT) 50 5-08 tablet by ity of mg tablet 00:00: mouth [place] 00 the Medical morning. Branch busPIRone 5 3-0 Yes [id number] 5mg Take 1 Univers mg tablet 5-08 tablet by ity o f 00:00: mouth 2 [place] 00 (two) Medical times Branch daily as needed for Other (anxiety). triamcinolo 2023-0 Yes [id number] Apply to Univers ne 5-08 area(s) 2 ity of acetonide 00:00: (two) [place] 0.1 % cream 00 times Medical daily. Branch SERTraline 2022-0 Yes [id number] 50mg Take 1 Univers (ZOLOFT) 50 5-08 tablet by ity of mg tablet 00:00: [place] 00 the Medical morning. Branch busPIRone 5 2022-0 Yes [id number] 5mg Take 1 Univers mg tablet 5-08 tablet by ity o f 00:00: mouth 2 00 (two) Medical times Branch daily as needed for Other (anxiety). triamcinolo 2022-0 Yes [id number] Apply to Univers ne 5-08 area(s) 2 ity of acetonide 00:00: (two) [place] 0.1 % cream 00 times Medical daily. Branch SERTraline 2022-0 Yes [id number] 50mg Take 1 Univers (ZOLOFT) 50 5-08 tablet by ity of mg tablet 00:00: mouth [place] 00 the Medical morning. Branch busPIRone 5 2022-0 Yes [id number] 5mg Take 1 Univers mg tablet 5-08 tablet by ity o f 00:00: mouth 2 00 (two) Medical times Branch daily as needed for Other (anxiety). triamcinolo 2022-0 Yes [id number] Apply to Univers ne 5-08 area(s) 2 ity of acetonide 00:00: (two) [place] 0.1 % cream 00 times Medical daily. Branch SERTraline 2022-0 Yes [id number] 50mg Take 1 Univers (ZOLOFT) 50 5-08 tablet by ity of mg tablet 00:00: mouth [place] 00 the Medical morning. Branch busPIRone 5 2022-0 Yes [id number] 5mg Take 1 Univers mg tablet 5-08 tablet by ity o f 00:00: mouth 2 00 (two) Medical times Branch daily as needed for Other (anxiety). triamcinolo 2022-0 Yes [id number] Apply to [facility] ne 5-08 area(s) 2 ity of acetonide 00:00: (two) [place] 0.1 % cream 00 times Medical daily. Branch SERTraline 2022-0 Yes [id number] 50mg Take 1 Univers (ZOLOFT) 50 5-08 tablet by ity of mg tablet 00:00: mouth [place] 00 the Medical morning. Branch busPIRone 5 2022-0 Yes [id number] 5mg Take 1 Univers mg tablet 5-08 tablet by ity o f 00:00: mouth 2 [place] 00 (two) Medical times Branch daily as needed for Other (anxiety). triamcinolo 2022-0 Yes [id number] Apply to [place] [facility] 5-08 area(s) 2 ity of acetonide 00:00: (two) [place] 0.1 % cream 00 times Medical daily. Branch SERTraline 2022-0 Yes [id number] 50mg Take 1 Univers (ZOLOFT) 50 5-08 tablet by ity of mg tablet 00:00: mouth [place] 00 the Medical morning. Branch busPIRone 5 2022-0 Yes [id number] 5mg Take 1 Univers mg tablet 5-08 tablet by ity o f 00:00: mouth 2 [place] 00 (two) Medical times Branch daily as needed for Other (anxiety). triamcinolo 2022-0 Yes [id number] Apply to [place] [facility] 5- area(s) 2 ity of acetonide 00:00: (two) [place] 0.1 % cream 00 times Medical daily. Branch SERTraline 2022-0 Yes [id number] 50mg Take 1 Univers (ZOLOFT) 50 5-08 tablet by ity of mg tablet 00:00: mouth [place] 00 the Medical morning. Branch busPIRone 5 2022-0 Yes [id number] 5mg Take 1 Univers mg tablet 5-08 tablet by ity o f 00:00: mouth 2 [place] 00 (two) Medical times Branch daily as needed for Other (anxiety). triamcinolo 2022-0 Yes [id number] Apply to [place] [facility] 5-08 area(s) 2 ity of acetonide 00:00: (two) [place] 0.1 % cream 00 times Medical daily. Branch SERTraline 2022-0 Yes [id number] 50mg Take 1 Univers (ZOLOFT) 50 5-08 tablet by ity of mg tablet 00:00: mouth [place] 00 the Medical morning. Branch busPIRone 5 2022-0 Yes [id number] 5mg Take 1 Univers mg tablet 5-08 tablet by ity o f 00:00: mouth 2 [place] 00 (two) Medical times Branch daily as needed for Other (anxiety). triamcinolo 2022-0 Yes [id number] Apply to [place] [facility] 5-08 area(s) 2 ity of acetonide 00:00: (two) [place] 0.1 % cream 00 times Medical daily. Branch SERTraline 2022-0 Yes [id number] 50mg Take 1 Univers (ZOLOFT) 50 5-08 tablet by ity of mg tablet 00:00: mouth [place] 00 the Medical morning. Branch busPIRone 5 2022-0 Yes [id number] 5mg Take 1 Univers mg tablet 5-08 tablet by ity o f 00:00: mouth 2 [place] 00 (two) Medical times Branch daily as needed for Other (anxiety). triamcinolo 2022-0 Yes [id number] Apply to [place] [facility] 5-08 area(s) 2 ity of acetonide 00:00: (two) [place] 0.1 % cream 00 times Medical daily. Branch SERTraline 2022-0 Yes [id number] 50mg Take 1 Univers (ZOLOFT) 50 5-08 tablet by ity of mg tablet 00:00: mouth [place] 00 the Medical morning. Branch busPIRone 5 2022-0 Yes [id number] 5mg Take 1 Univers mg tablet 5-08 tablet by ity o f 00:00: mouth 2 [place] 00 (two) Medical times Branch daily as needed for Other (anxiety). triamcinolo 3-0 Yes [id number] Apply to [place] [facility] 5-08 area(s) 2 ity of acetonide 00:00: (two) [place] 0.1 % cream 00 times Medical daily. Branch SERTraline 2022-0 Yes [id number] 50mg Take 1 Univers (ZOLOFT) 50 5-08 tablet by ity of mg tablet 00:00: mouth [place] 00 the Medical morning. Branch busPIRone 5 2022-0 Yes [id number] 5mg Take 1 Univers mg tablet 5-08 tablet by ity o f 00:00: mouth 2 [place] 00 (two) Medical times Branch daily as needed for Other (anxiety). triamcinolo 3-0 Yes [id number] Apply to [place] [facility] 5-08 area(s) 2 ity of acetonide 00:00: (two) [place] 0.1 % cream 00 times Medical daily. Branch SERTraline 2022-0 Yes [id number] 50mg Take 1 Univers (ZOLOFT) 50 5-08 tablet by ity of mg tablet 00:00: [place] 00 the Medical morning. Branch busPIRone 5 2022-0 Yes [id number] 5mg Take 1 Univers mg tablet 5-08 tablet by ity o f 00:00: mouth 2 00 (two) Medical times Branch daily as needed for Other (anxiety). triamcinolo 3-0 Yes [id number] Apply to [facility] ne 5-08 area(s) 2 ity of acetonide 00:00: (two) [place] 0.1 % cream 00 times Medical daily. Branch SERTraline 2022-0 Yes [id number] 50mg Take 1 Univers (ZOLOFT) 50 5-08 tablet by ity of mg tablet 00:00: mouth [place] 00 the Medical morning. Branch busPIRone 5 2022-0 Yes [id number] 5mg Take 1 Univers mg tablet 5-08 tablet by ity o f 00:00: mouth 2 00 (two) Medical times Branch daily as needed for Other (anxiety). triamcinolo 2022-0 Yes [id number] Apply to [facility] ne 5-08 area(s) 2 ity of acetonide 00:00: (two) [place] 0.1 % cream 00 times Medical daily. Branch SERTraline 2022-0 Yes [id number] 50mg Take 1 Univers (ZOLOFT) 50 5-08 tablet by ity of mg tablet 00:00: mouth [place] 00 the Medical morning. Branch busPIRone 5 2022-0 Yes [id number] 5mg Take 1 Univers mg tablet 5-08 tablet by ity o f 00:00: mouth 2 00 (two) Medical times Branch daily as needed for Other (anxiety). triamcinolo 2022-0 Yes [id number] Apply to [facility] ne 5-08 area(s) 2 ity of acetonide 00:00: (two) [place] 0.1 % cream 00 times Medical daily. Branch SERTraline 2022-0 Yes [id number] 50mg Take 1 Univers (ZOLOFT) 50 5-08 tablet by ity of mg tablet 00:00: mouth [place] 00 the Medical morning. Branch busPIRone 5 2022-0 Yes [id number] 5mg Take 1 Univers mg tablet 5-08 tablet by ity o f 00:00: mouth 2 [place] 00 (two) Medical times Branch daily as needed for Other (anxiety). triamcinolo 2022-0 Yes [id number] Apply to [facility] ne 5-08 area(s) 2 ity of acetonide 00:00: (two) [place] 0.1 % cream 00 times Medical daily. Branch SERTraline 2022-0 Yes [id number] 50mg Take 1 Univers (ZOLOFT) 50 5-08 tablet by ity of mg tablet 00:00: mouth [place] 00 the Medical morning. Branch busPIRone 5 2022-0 Yes [id number] 5mg Take 1 Univers mg tablet 5-08 tablet by ity o f 00:00: mouth 2 [place] 00 (two) Medical times Branch daily as needed for Other (anxiety). triamcinolo 2022-0 Yes [id number] Apply to [facility] ne 5-08 area(s) 2 ity of acetonide 00:00: (two) [place] 0.1 % cream 00 times Medical daily. Branch SERTraline 2022-0 Yes [id number] 50mg Take 1 Univers (ZOLOFT) 50 5-08 tablet by ity of mg tablet 00:00: mouth [place] 00 the Medical morning. Branch busPIRone 5 2022-0 Yes [id number] 5mg Take 1 Univers mg tablet 5-08 tablet by ity o f 00:00: mouth 2 [place] 00 (two) Medical times Branch daily as needed for Other (anxiety). triamcinolo 2022-0 Yes [id number] Apply to [facility] ne 5-08 area(s) 2 ity of acetonide 00:00: (two) [place] 0.1 % cream 00 times Medical daily. Branch BUSPIRONE 5 2022-0 Yes [id number] TAKE ONE Univers mg tablet 4-10 TABLET BY ity o f 00:00: MOUTH [place] 00 TWICE A Medical DAY Branch NEEDED FOR ANXIETY BUSPIRONE 5 2022-0 2022- No [id number] TAKE ONE Univers mg tablet 4-10 05-08 TABLET BY ity of 00:00: 00:00 MOUTH [place] 00 :00 TWICE A Medical DAY Branch NEEDED FOR ANXIETY BUSPIRONE 5 2022-0 2022- No [id number] TAKE ONE Univers mg tablet 4-10 05-08 TABLET BY ity of 00:00: 00:00 MOUTH [place] 00 :00 TWICE A Medical DAY Branch NEEDED FOR ANXIETY buPROPion 2023-0 2023- No 150mg Take 1 Univ ers XL 3-10 03-10 tablet by ity of (WELLBUTRIN 13:02: 00:00 mouth in [place] XL) 150 mg 15 :00 the Medical 24 hr morning. Branch tablet buPROPion 2023-0 2023- No 150mg Take 1 Univ ers XL 3-10 03-10 tablet by ity of (WELLBUTRIN 13:02: 00:00 mouth in [place] XL) 150 mg 15 :00 the Medical 24 hr morning. Branch tablet ondansetron 2023-0 Yes 4mg Take 1 Univ ers 4 mg 3-10 tablet by ity of disintegrat 12:53: mouth [place] ing tablet 59 every 8 Medica l (eight) Branch hours as needed. ondansetron 2023-0 Yes 4mg Take 1 Univ ers 4 mg 3-10 tablet by ity of disintegrat 12:53: mouth [place] ing tablet 59 every 8 Medica l (eight) Branch hours as needed. ondansetron 2023-0 Yes 4mg Take 1 Univ ers 4 mg 3-10 tablet by ity of disintegrat 12:53: mouth [place] ing tablet 59 every 8 Medica l (eight) Branch hours as needed. ondansetron 2023-0 Yes 4mg Take 1 Univ ers 4 mg 3-10 tablet by ity of disintegrat 12:53: mouth [place] ing tablet 59 every 8 Medica l (eight) Branch hours as needed. ondansetron 2023-0 Yes 4mg Take 1 Univ ers 4 mg 3-10 tablet by ity of disintegrat 12:53: mouth [place] ing tablet 59 every 8 Medica l (eight) Branch hours as needed. ondansetron 2023-0 Yes 4mg Take 1 Univ ers 4 mg 3-10 tablet by ity of disintegrat 12:53: mouth [place] ing tablet 59 every 8 Medica l (eight) Branch hours as needed. ondansetron 2023-0 Yes 4mg Take 1 Univ ers 4 mg 3-10 tablet by ity of disintegrat 12:53: mouth [place] ing tablet 59 every 8 Medica l (eight) Branch hours as needed. ondansetron 2023-0 Yes 4mg Take 1 Univ ers 4 mg 3-10 tablet by ity of disintegrat 12:53: mouth [place] ing tablet 59 every 8 Medica l (eight) Branch hours as needed. ondansetron 2022-0 Yes 4mg Take 1 Univ ers 4 mg 3-10 tablet by ity of disintegrat 12:53: mouth [place] ing tablet 59 every 8 Medica l (eight) Branch hours as needed. ondansetron 2022-0 2022- No take 1 tab Univers 4 mg tablet 3-10 03-10 po every 8 i ty of 12:53: 00:00 hours for [place] 25 :00 2 days Medical Branch ondansetron 2022-0 2022- No take 1 tab Univers 4 mg tablet 3-10 03-10 po every 8 i ty of 12:53: 00:00 hours for [place] 25 :00 2 days Medical Branch SERTraline 2022-0 Yes [id number] 25mg Take 1 Univers 25 mg 3-10 tablet by ity of tablet 00:00: mouth in [place] 00 the Medical morning. Branch busPIRone 5 2022-0 Yes [id number] 5mg Take 1 Univers mg tablet 3-10 tablet by ity o f 00:00: mouth 2 [place] (two) Medical times Branch daily as needed for Other (anxiety). SERTraline 2022-0 Yes [id number] 25mg Take 1 Univers 25 mg 3-10 tablet by ity of tablet 00:00: mouth in [place] 00 the Medical morning. Branch busPIRone 5 2022-0 Yes [id number] 5mg Take 1 Univers mg tablet 3-10 tablet by ity o f 00:00: mouth 2 [place] (two) Medical times Branch daily as needed for Other (anxiety). SERTraline 2022-0 Yes [id number] 25mg Take 1 [facility] 25 mg 3-10 tablet by ity of tablet 00:00: mouth in [place] 00 the Medical morning. Branch busPIRone 5 2022-0 Yes [id number] 5mg Take 1 Univers mg tablet 3-10 tablet by ity o f 00:00: mouth 2 [place] (two) Medical times Branch daily as needed for Other (anxiety). SERTraline 2022-0 Yes [id number] 25mg Take 1 Univers 25 mg 3-10 tablet by ity of tablet 00:00: mouth in [place] 00 the Medical morning. Branch SERTraline 2022-0 2022- No [id number] 25mg Take 1 Univers 25 mg 3-10 05-08 tablet by ity of tablet 00:00: 00:00 mouth in [place] 00 :00 the Medical morning. Branch SERTraline 2022- No [id number] 25mg Take 1 Univers 25 mg 3-10 05-08 tablet by ity of tablet 00:00: 00:00 mouth in [place] 00 :00 the Medical morning. Branch busPIRone 5 2022- No [id number] 5mg Take 1 Univers mg tablet 3-10 04-10 tablet by ity of 00:00: 00:00 mouth 2 [place] 00 :00 (two) Medical times Branch daily as needed for Other (anxiety). dicyclomine Yes Take by Uni vers HCl 7-28 mouth. ity of (DICYCLOMIN 13:31: [place] E ORAL) 53 Medical Branch dicyclomine Yes Take by Uni vers HCl 7-28 mouth. ity of (DICYCLOMIN 13:31: [place] E ORAL) 53 Medical Branch dicyclomine Yes Take by Uni vers HCl 7-28 mouth. ity of (DICYCLOMIN 13:31: [place] E ORAL) 53 Medical Branch dicyclomine Yes Take by Un emmanuel HCl 7-28 mouth. ity of (DICYCLOMIN 13:31: [place] E ORAL) 53 Medical Branch dicyclomine Yes Take by Uni vers HCl 7-28 mouth. ity of (DICYCLOMIN 13:31: [place] E ORAL) 53 Medical Branch dicyclomine Yes Take by Uni vers HCl 7-28 mouth. ity of (DICYCLOMIN 13:31: [place] E ORAL) 53 Medical Branch dicyclomine Yes Take by Uni vers HCl 7-28 mouth. ity of (DICYCLOMIN 13:31: [place] E ORAL) 53 Medical Branch dicyclomine Yes Take by Uni vers HCl 7-28 mouth. ity of (DICYCLOMIN 13:31: [place] E ORAL) 53 Medical Branch dicyclomine Yes Take by Uni vers HCl 7-28 mouth. ity of (DICYCLOMIN 13:31: [place] E ORAL) 53 Medical Branch ergocalcife 2022- No Unive rs rol, 6-18 03-10 ity of vitamin d2, 00:00: 00:00 [place] 1,250 mcg 00 :00 Medical (50,000 Branch unit) capsule ergocalcife 2022- No Unive rs rol, 18 03-10 ity of vitamin d2, 00:00: 00:00 [place] 1,250 mcg 00 :00 Medical (50,000 Branch unit) capsule buPROPion 2022- No Univers XL 150 mg 616 03-10 ity of 24 hr 00:00: 00:00 [place] tablet 00 :00 Medical Branch clonazePAM 2022- No Univer s 0.5 mg 616 03-10 ity of tablet 00:00: 00:00 [place] 00 :00 Medical Branch buPROPion 0 2022- No Univers XL 150 mg 616 -10 ity of 24 hr 00:00: 00:00 [place] tablet 00 :00 Medical Branch clonazePAM 2022- No Univer s 0.5 mg 616 03-10 ity of tablet 00:00: 00:00 [place] 00 :00 Medical Branch ondansetron 0 2022- No Unive rs 8 mg 8-12 03-10 ity of disintegrat 00:00: 00:00 [place] ing tablet 00 :00 Medical Branch ondansetron 0 2022- No Unive rs 8 mg 8-12 03-10 ity of disintegrat 00:00: 00:00 [place] ing tablet 00 :00 Medical Branch Immunizations Ordered Filled Immunization Date Status Comments Sour e Immunization Name Name Influenza Virus 2022-01-05 Completed Universit y of Vaccine Recomb Quad 00:00:00 [place] [facility] IM, Preserv and ABX Branc h Free 18-64 YRS Influenza Virus 2022-01-05 Completed Universit y of Vaccine Recomb Quad 00:00:00 [place] [facility] IM, Preserv and ABX Branc h Free 18-64 YRS Influenza Virus 2022-01-05 Completed Universit y of Vaccine Recomb Quad 00:00:00 [place] [facility] IM, Preserv and ABX Branc h Free 18-64 YRS Influenza Virus 2022-01-05 Completed Universit y of Vaccine Recomb Quad 00:00:00 [place] [facility] IM, Preserv and ABX Branc h Free 18-64 YRS Influenza Virus 2022-01-05 Completed Universit y of Vaccine Recomb Quad 00:00:00 [place] [facility] IM, Preserv and ABX Branc h Free 18-64 YRS Influenza Virus 2022-01-05 Completed Universit y of Vaccine Recomb Quad 00:00:00 [place] [facility] IM, Preserv and ABX Branc h Free 18-64 YRS Influenza Virus 2022-01-05 Completed Universit y of Vaccine Recomb Quad 00:00:00 [place] [facility] IM, Preserv and ABX Branc h Free 18-64 YRS Influenza Virus 2022-01-05 Completed Universit y of Vaccine Recomb Quad 00:00:00 [place] [facility] IM, Preserv and ABX Branc h Free 18-64 YRS Influenza Virus 2022-01-05 Completed Universit y of Vaccine Recomb Quad 00:00:00 [place] [facility] IM, Preserv and ABX Branc h Free 18-64 YRS Influenza Virus 2022-01-05 Completed Universit y of Vaccine Recomb Quad 00:00:00 [place] [facility] IM, Preserv and ABX Branc h Free 18-64 YRS Influenza Virus 2022-01-05 Completed Universit y of Vaccine Recomb Quad 00:00:00 [place] [facility] IM, Preserv and ABX Branc h Free 18-64 YRS Influenza Virus 2022-01-05 Completed Universit y of Vaccine Recomb Quad 00:00:00 [place] [facility] IM, Preserv and ABX Branc h Free 18-64 YRS Influenza Virus 2022-01-05 Completed Universit y of Vaccine Recomb Quad 00:00:00 [place] [facility] IM, Preserv and ABX Branc h Free 18-64 YRS Influenza Virus 2022-01-05 Completed Universit y of Vaccine Recomb Quad 00:00:00 [place] [facility] IM, Preserv and ABX Branc h Free 18-64 YRS Influenza Virus 2022-01-05 Completed Universit y of Vaccine Recomb Quad 00:00:00 [place] [facility] IM, Preserv and ABX Branc h Free 18-64 YRS Influenza Virus 2022-01-05 Completed Universit y of Vaccine Recomb Quad 00:00:00 [place] [facility] IM, Preserv and ABX Branc h Free 18-64 YRS Influenza Virus 2022-01-05 Completed Universit y of Vaccine Recomb Quad 00:00:00 [place] [facility] IM, Preserv and ABX Branc h Free 18-64 YRS Influenza Virus 2022-01-05 Completed Universit y of Vaccine Recomb Quad 00:00:00 [place] [facility] IM, Preserv and ABX Branc h Free 18-64 YRS Influenza Virus 2022-01-05 Completed Universit y of Vaccine Recomb Quad 00:00:00 [place] [facility] IM, Preserv and ABX Branc h Free 18-64 YRS Influenza Virus 2022-01-05 Completed Universit y of Vaccine Recomb Quad 00:00:00 [place] [facility] IM, Preserv and ABX Branc h Free 18-64 YRS Influenza Virus 2022-01-05 Completed Universit y of Vaccine Recomb Quad 00:00:00 [place] [facility] IM, Preserv and ABX Branc h Free 18-64 YRS Influenza Virus 2022-01-05 Completed Universit y of Vaccine Recomb Quad 00:00:00 [place] [facility] IM, Preserv and ABX Branc h Free 18-64 YRS Influenza Virus 2022-01-05 Completed Universit y of Vaccine Recomb Quad 00:00:00 [place] [facility] IM, Preserv and ABX Branc h Free 18-64 YRS Influenza Virus 2022-01-05 Completed Universit y of Vaccine Recomb Quad 00:00:00 [place] [facility] IM, Preserv and ABX Branc h Free 18-64 YRS Influenza Virus 2022-01-05 Completed Universit y of Vaccine Recomb Quad 00:00:00 [place] [facility] IM, Preserv and ABX Branc h Free 18-64 YRS Influenza Virus 2022-01-05 Completed Universit y of Vaccine Recomb Quad 00:00:00 [place] [facility] IM, Preserv and ABX Branc h Free 18-64 YRS Influenza Virus 2022-01-05 Completed Universit y of Vaccine Recomb Quad 00:00:00 [place] [facility] IM, Preserv and ABX Branc h Free 18-64 YRS SARS-COV-2 COVID-19 2021-01-27 Completed Unive rsity of MODERNA 12+ YRS 00:00:00 [facility] VACCINE Branch SARS-COV-2 COVID-19 2021-01-27 Completed Unive rsity of MODERNA 12+ YRS 00:00:00 [facility] ica VACCINE Branch SARS-COV-2 COVID-19 2021-01-27 Completed Unive rsity of MODERNA 12+ YRS 00:00:00 [facility] VACCINE Branch SARS-COV-2 COVID-19 2021-01-27 Completed Unive rsity of MODERNA 12+ YRS 00:00:00 [place] [facility] ical VACCINE Branch SARS-COV-2 COVID-19 2021-01-27 Completed Unive rsity of MODERNA 12+ YRS 00:00:00 [place] [facility] ical VACCINE Branch SARS-COV-2 COVID-19 2021-01-27 Completed Unive rsity of MODERNA 12+ YRS 00:00:00 [place] [facility] ical VACCINE Branch SARS-COV-2 COVID-19 2021-01-27 Completed Unive rsity of MODERNA 12+ YRS 00:00:00 [place] [facility] ical VACCINE Branch SARS-COV-2 COVID-19 2021-01-27 Completed Unive rsity of MODERNA 12+ YRS 00:00:00 [place] [facility] ical VACCINE Branch SARS-COV-2 COVID-19 2021-01-27 Completed Unive rsity of MODERNA 12+ YRS 00:00:00 [place] [facility] ical VACCINE Branch SARS-COV-2 COVID-19 2021-01-27 Completed Unive rsity of MODERNA 12+ YRS 00:00:00 [place] [facility] ical VACCINE Branch SARS-COV-2 COVID-19 2021-01-27 Completed Unive rsity of MODERNA 12+ YRS 00:00:00 [place] [facility] ical VACCINE Branch SARS-COV-2 COVID-19 2021-01-27 Completed Unive rsity of MODERNA 12+ YRS 00:00:00 [place] [facility] ical VACCINE Branch SARS-COV-2 COVID-19 2021-01-27 Completed Unive rsity of MODERNA 12+ YRS 00:00:00 [place] [facility] ical VACCINE Branch SARS-COV-2 COVID-19 2021-01-27 Completed Unive rsity of MODERNA 12+ YRS 00:00:00 [place] [facility] ical VACCINE Branch SARS-COV-2 COVID-19 2021-01-27 Completed Unive rsity of MODERNA 12+ YRS 00:00:00 [place] [facility] ical VACCINE Branch SARS-COV-2 COVID-19 2021-01-27 Completed Unive rsity of MODERNA 12+ YRS 00:00:00 [place] [facility] ical VACCINE Branch SARS-COV-2 COVID-19 2021-01-27 Completed Unive rsity of MODERNA 12+ YRS 00:00:00 [place] [facility] ical VACCINE Branch SARS-COV-2 COVID-19 2021-01-27 Completed Unive rsity of MODERNA 12+ YRS 00:00:00 [place] [facility] ical VACCINE Branch SARS-COV-2 COVID-19 2021-01-27 Completed Unive rsity of MODERNA 12+ YRS 00:00:00 [place] [facility] ical VACCINE Branch SARS-COV-2 COVID-19 2021-01-27 Completed Unive rsity of MODERNA 12+ YRS 00:00:00 [place] [facility] ical VACCINE Branch SARS-COV-2 COVID-19 2021-01-27 Completed Unive rsity of MODERNA 12+ YRS 00:00:00 [place] [facility] ical VACCINE Branch SARS-COV-2 COVID-19 2021-01-27 Completed Unive rsity of MODERNA 12+ YRS 00:00:00 [place] [facility] ical VACCINE Branch SARS-COV-2 COVID-19 2021-01-27 Completed Unive rsity of MODERNA 12+ YRS 00:00:00 [place] [facility] ical VACCINE Branch SARS-COV-2 COVID-19 2021-01-27 Completed Unive rsity of MODERNA 12+ YRS 00:00:00 [place] [facility] ical VACCINE Branch SARS-COV-2 COVID-19 2021-01-27 Completed Unive rsity of MODERNA 12+ YRS 00:00:00 [place] [facility] ical VACCINE Branch SARS-COV-2 COVID-19 2021-01-27 Completed Unive rsity of MODERNA 12+ YRS 00:00:00 [place] [facility] ical VACCINE Branch SARS-COV-2 COVID-19 2021-01-27 Completed Unive rsity of MODERNA 12+ YRS 00:00:00 [place] [facility] ical VACCINE Branch SARS-COV-2 COVID-19 2020-07-07 Completed Unive rsity of MODERNA 12+ YRS 00:00:00 [place] [facility] ical VACCINE Branch SARS-COV-2 COVID-19 2020-07-07 Completed Unive rsity of MODERNA 12+ YRS 00:00:00 [place] [facility] ical VACCINE Branch SARS-COV-2 COVID-19 2020-07-07 Completed Unive rsity of MODERNA 12+ YRS 00:00:00 [place] [facility] ical VACCINE Branch SARS-COV-2 COVID-19 2020-07-07 Completed Unive rsity of MODERNA 12+ YRS 00:00:00 [place] [facility] ical VACCINE Branch SARS-COV-2 COVID-19 2020-07-07 Completed Unive rsity of MODERNA 12+ YRS 00:00:00 [place] [facility] ical VACCINE Branch SARS-COV-2 COVID-19 2020-07-07 Completed Unive rsity of MODERNA 12+ YRS 00:00:00 [place] [facility] ical VACCINE Branch SARS-COV-2 COVID-19 2020-07-07 Completed Unive rsity of MODERNA 12+ YRS 00:00:00 [place] [facility] ical VACCINE Branch SARS-COV-2 COVID-19 2020-07-07 Completed Unive rsity of MODERNA 12+ YRS 00:00:00 [place] [facility] ical VACCINE Branch SARS-COV-2 COVID-19 2020-07-07 Completed Unive rsity of MODERNA 12+ YRS 00:00:00 [place] [facility] ical VACCINE Branch SARS-COV-2 COVID-19 2020-07-07 Completed Unive rsity of MODERNA 12+ YRS 00:00:00 [place] [facility] ical VACCINE Branch SARS-COV-2 COVID-19 2020-07-07 Completed Unive rsity of MODERNA 12+ YRS 00:00:00 [place] [facility] ical VACCINE Branch SARS-COV-2 COVID-19 2020-07-07 Completed Unive rsity of MODERNA 12+ YRS 00:00:00 [place] [facility] ical VACCINE Branch SARS-COV-2 COVID-19 2020-07-07 Completed Unive rsity of MODERNA 12+ YRS 00:00:00 [place] [facility] ical VACCINE Branch SARS-COV-2 COVID-19 2020-07-07 Completed Unive rsity of MODERNA 12+ YRS 00:00:00 [place] [facility] ical VACCINE Branch SARS-COV-2 COVID-19 2020-07-07 Completed Unive rsity of MODERNA 12+ YRS 00:00:00 [place] [facility] ical VACCINE Branch SARS-COV-2 COVID-19 2020-07-07 Completed Unive rsity of MODERNA 12+ YRS 00:00:00 [place] [facility] ical VACCINE Branch SARS-COV-2 COVID-19 2020-07-07 Completed Unive rsity of MODERNA 12+ YRS 00:00:00 [place] [facility] ical VACCINE Branch SARS-COV-2 COVID-19 2020-07-07 Completed Unive rsity of MODERNA 12+ YRS 00:00:00 [place] [facility] ical VACCINE Branch SARS-COV-2 COVID-19 2020-07-07 Completed Unive rsity of MODERNA 12+ YRS 00:00:00 [place] [facility] ical VACCINE Branch SARS-COV-2 COVID-19 2020-07-07 Completed Unive rsity of MODERNA 12+ YRS 00:00:00 [place] [facility] ical VACCINE Branch SARS-COV-2 COVID-19 2020-07-07 Completed Unive rsity of MODERNA 12+ YRS 00:00:00 [place] [facility] ical VACCINE Branch SARS-COV-2 COVID-19 2020-07-07 Completed Unive rsity of MODERNA 12+ YRS 00:00:00 [place] [facility] ical VACCINE Branch SARS-COV-2 COVID-19 2020-07-07 Completed Unive rsity of MODERNA 12+ YRS 00:00:00 [place] [facility] ical VACCINE Branch SARS-COV-2 COVID-19 2020-07-07 Completed Unive rsity of MODERNA 12+ YRS 00:00:00 [place] [facility] ical VACCINE Branch SARS-COV-2 COVID-19 2020-07-07 Completed Unive rsity of MODERNA 12+ YRS 00:00:00 [place] [facility] ical VACCINE Branch SARS-COV-2 COVID-19 2020-07-07 Completed Unive rsity of MODERNA 12+ YRS 00:00:00 [place] [facility] ical VACCINE Branch SARS-COV-2 COVID-19 2020-07-07 Completed Unive rsity of MODERNA 12+ YRS 00:00:00 [place] [facility] ical VACCINE Branch SARS-COV-2 COVID-19 2020-05-27 Completed Unive rsity of MODERNA 12+ YRS 00:00:00 [place] [facility] ical VACCINE Branch SARS-COV-2 COVID-19 2020-05-27 Completed Unive rsity of MODERNA 12+ YRS 00:00:00 [place] [facility] ical VACCINE Branch SARS-COV-2 COVID-19 2020-05-27 Completed Unive rsity of MODERNA 12+ YRS 00:00:00 [place] [facility] ical VACCINE Branch SARS-COV-2 COVID-19 2020-05-27 Completed Unive rsity of MODERNA 12+ YRS 00:00:00 [place] [facility] ical VACCINE Branch SARS-COV-2 COVID-19 2020-05-27 Completed Unive rsity of MODERNA 12+ YRS 00:00:00 [place] [facility] ical VACCINE Branch SARS-COV-2 COVID-19 2020-05-27 Completed Unive rsity of MODERNA 12+ YRS 00:00:00 [place] [facility] ical VACCINE Branch SARS-COV-2 COVID-19 2020-05-27 Completed Unive rsity of MODERNA 12+ YRS 00:00:00 [place] [facility] ical VACCINE Branch SARS-COV-2 COVID-19 2020-05-27 Completed Unive rsity of MODERNA 12+ YRS 00:00:00 [place] [facility] ical VACCINE Branch SARS-COV-2 COVID-19 2020-05-27 Completed Unive rsity of MODERNA 12+ YRS 00:00:00 [place] [facility] ical VACCINE Branch SARS-COV-2 COVID-19 2020-05-27 Completed Unive rsity of MODERNA 12+ YRS 00:00:00 [place] [facility] ical VACCINE Branch SARS-COV-2 COVID-19 2020-05-27 Completed Unive rsity of MODERNA 12+ YRS 00:00:00 [place] [facility] ical VACCINE Branch SARS-COV-2 COVID-19 2020-05-27 Completed Unive rsity of MODERNA 12+ YRS 00:00:00 [place] [facility] ical VACCINE Branch SARS-COV-2 COVID-19 2020-05-27 Completed Unive rsity of MODERNA 12+ YRS 00:00:00 [place] [facility] ical VACCINE Branch SARS-COV-2 COVID-19 2020-05-27 Completed Unive rsity of MODERNA 12+ YRS 00:00:00 [place] [facility] ical VACCINE Branch SARS-COV-2 COVID-19 2020-05-27 Completed Unive rsity of MODERNA 12+ YRS 00:00:00 [place] [facility] ical VACCINE Branch SARS-COV-2 COVID-19 2020-05-27 Completed Unive rsity of MODERNA 12+ YRS 00:00:00 [place] [facility] ical VACCINE Branch SARS-COV-2 COVID-19 2020-05-27 Completed Unive rsity of MODERNA 12+ YRS 00:00:00 [place] [facility] ical VACCINE Branch SARS-COV-2 COVID-19 2020-05-27 Completed Unive rsity of MODERNA 12+ YRS 00:00:00 [facility] ical VACCINE Branch SARS-COV-2 COVID-19 2020-05-27 Completed Unive rsity of MODERNA 12+ YRS 00:00:00 [facility] ical VACCINE Branch SARS-COV-2 COVID-19 2020-05-27 Completed Unive rsity of MODERNA 12+ YRS 00:00:00 [facility] ical VACCINE Branch SARS-COV-2 COVID-19 2020-05-27 Completed Unive rsity of MODERNA 12+ YRS 00:00:00 [facility] ical VACCINE Branch SARS-COV-2 COVID-19 2020-05-27 Completed Unive rsity of MODERNA 12+ YRS 00:00:00 [facility] ical VACCINE Branch SARS-COV-2 COVID-19 2020-05-27 Completed Unive rsity of MODERNA 12+ YRS 00:00:00 [facility] ical VACCINE Branch SARS-COV-2 COVID-19 2020-05-27 Completed Unive rsity of MODERNA 12+ YRS 00:00:00 [facility] ical VACCINE Branch SARS-COV-2 COVID-19 2020-05-27 Completed Unive rsity of MODERNA 12+ YRS 00:00:00 [facility] ical VACCINE Branch SARS-COV-2 COVID-19 2020-05-27 Completed Unive rsity of MODERNA 12+ YRS 00:00:00 [facility] VACCINE Branch SARS-COV-2 COVID-19 2020-05-27 Completed Unive rsity of MODERNA 12+ YRS 00:00:00 [facility] VACCINE Branch Influenza Virus 2018-12-01 Completed Universit y of Vaccine 00:00:00 [facility] Influenza Virus 2018-12-01 Completed Universit y of Vaccine 00:00:00 [facility] Influenza Virus 2018-12-01 Completed Universit y of Vaccine 00:00:00 [facility] Influenza Virus 2018-12-01 Completed Universit y of Vaccine 00:00:00 [facility] Influenza Virus 2018-12-01 Completed Universit y of Vaccine 00:00:00 [facility] Influenza Virus 2018-12-01 Completed Universit y of Vaccine 00:00:00 [facility] Influenza Virus 2018-12-01 Completed Universit y of Vaccine 00:00:00 [facility] Influenza Virus 2018-12-01 Completed Universit y of Vaccine 00:00:00 [facility] Influenza Virus 2018-12-01 Completed Universit y of Vaccine 00:00:00 [facility] Influenza Virus 2018-12-01 Completed Universit y of Vaccine 00:00:00 [facility] Influenza Virus 2018-12-01 Completed Universit y of Vaccine 00:00:00 [facility] Influenza Virus 2018-12-01 Completed Universit y of Vaccine 00:00:00 [facility] Influenza Virus 2018-12-01 Completed Universit y of Vaccine 00:00:00 [facility] Influenza Virus 2018-12-01 Completed Universit y of Vaccine 00:00:00 [facility] Influenza Virus 2018-12-01 Completed Universit y of Vaccine 00:00:00 [facility] Influenza Virus 2018-12-01 Completed Universit y of Vaccine 00:00:00 [facility] Influenza Virus 2018-12-01 Completed Universit y of Vaccine 00:00:00 [facility] Influenza Virus 2018-12-01 Completed Universit y of Vaccine 00:00:00 [facility] Influenza Virus 2018-12-01 Completed Universit y of Vaccine 00:00:00 [facility] Influenza Virus 2018-12-01 Completed Universit y of Vaccine 00:00:00 [facility] Influenza Virus 2018-12-01 Completed Universit y of Vaccine 00:00:00 [facility] Influenza Virus 2018-12-01 Completed Universit y of Vaccine 00:00:00 [facility] Influenza Virus 2018-12-01 Completed Universit y of Vaccine 00:00:00 [facility] Influenza Virus 2018-12-01 Completed Universit y of Vaccine 00:00:00 [facility] Influenza Virus 2018-12-01 Completed Universit y of Vaccine 00:00:00 [facility] Influenza Virus 2018-12-01 Completed Universit y of Vaccine 00:00:00 [facility] Influenza Virus 2018-12-01 Completed Universit y of Vaccine 00:00:00 [facility] Vital Signs Vital Name Observation Time Observation Value Comments Source Systolic blood 2022-10-04 16:13:00 113 mm[Hg] Univer sity of pressure [facility] Diastolic blood 2022-10-04 16:13:00 74 mm[Hg] Unive rsity of pressure [place] [facility] Heart rate 2022-10-04 16:13:00 97 /min [facility] [place] [facility] Body temperature 2022-10-04 16:13:00 37 Natasha [facility] ers[facility] [place] [facility] Respiratory rate 2022-10-04 16:13:00 18 /min Univ ersity [facility] [place] [facility] Body height 2022-10-04 16:13:00 157.5 cm [facility] [place] [facility] Body weight 2022-10-04 16:13:00 71.487 kg [facility] [place] [facility] BMI 2022-10-04 16:13:00 28.83 kg/m2 [facility] [place] [facility] Oxygen saturation in 2022-10-04 16:13:00 98 /min [facility] of Arterial blood by [place] [facility] Pulse oximetry Branch Systolic blood 2022-09-06 18:54:00 128 mm[Hg] Univer sity of pressure [place] [facility] Diastolic blood 2022-09-06 18:54:00 80 mm[Hg] Unive rsity of pressure [place] [facility] Heart rate 2022-09-06 18:54:00 74 /min [facility] [place] [facility] Body temperature 2022-09-06 18:54:00 36.61 Natasha Univ ers[facility] [place] [facility] Body height 2022-09-06 18:54:00 157.5 cm [facility] [place] [facility] Body weight 2022-09-06 18:54:00 72.167 kg [facility] [place] [facility] BMI 2022-09-06 18:54:00 29.10 kg/m2 [facility] [place] [facility] Oxygen saturation in 2022-09-06 18:54:00 100 /min [facility] of Arterial blood by [place] [facility] Pulse oximetry Branch Systolic blood 2022-08-27 18:28:00 115 mm[Hg] Univer sity of pressure [place] [facility] Diastolic blood 2022-08-27 18:28:00 84 mm[Hg] Unive rsity of pressure [place] [facility] Heart rate 2022-08-27 18:28:00 78 /min [facility] [place] [facility] Respiratory rate 2022-08-27 18:28:00 18 /min Univ ers[facility] [place] [facility] Body height 2022-08-27 18:28:00 157.5 cm [facility] [place] [facility] Body weight 2022-08-27 18:28:00 70.761 kg [facility] [place] [facility] BMI 2022-08-27 18:28:00 28.53 kg/m2 [facility] [place] [facility] Systolic blood 2022-07-23 18:33:00 107 mm[Hg] Univer sity of pressure [place] [facility] Diastolic blood 2022-07-23 18:33:00 68 mm[Hg] Unive rsity of pressure [place] [facility] Heart rate 2022-07-23 18:32:00 67 /min [facility] [place] [facility] Body temperature 2022-07-23 18:32:00 36.67 Natasha [facility] [place] [facility] Body height 2022-07-23 18:32:00 157.5 cm [facility] [place] [facility] Body weight 2022-07-23 18:32:00 72.576 kg [facility] [place] [facility] BMI 2022-07-23 18:32:00 29.26 kg/m2 [facility] [place] [facility] Systolic blood 2022-07-17 21:29:00 108 mm[Hg] Univer sity of pressure [place] [facility] Diastolic blood 2022-07-17 21:29:00 75 mm[Hg] Unive rsity of pressure [place] [facility] Heart rate 2022-07-17 21:29:00 75 /min [facility] [place] [facility] Respiratory rate 2022-07-17 21:29:00 18 /min Univ [facility] [place] [facility] Body height 2022-07-17 21:29:00 157.5 cm [facility] [place] [facility] Body weight 2022-07-17 21:29:00 73.483 kg [facility] [place] [facility] BMI 2022-07-17 21:29:00 29.63 kg/m2 [facility] [place] [facility] Systolic blood 2022-07-08 18:40:00 122 mm[Hg] Univer sity of pressure [place] [facility] Diastolic blood 2022-07-08 18:40:00 85 mm[Hg] Unive rsity of pressure [place] [facility] Heart rate 2022-07-08 18:40:00 75 /min [facility] [place] [facility] Respiratory rate 2022-07-08 18:40:00 18 /min [facility] [place] [facility] Body height 2022-07-08 18:40:00 157.5 cm [facility] [place] [facility] [place] Body weight 2022-07-08 18:40:00 72.848 kg [facility] [place] [facility] BMI 2022-07-08 18:40:00 29.37 kg/m2 Universi ty of [facility] Oxygen saturation in 2022-07-08 18:40:00 100 /min University of Arterial blood by [facility] Pulse oximetry Branch Systolic blood 2022-05-10 18:47:00 121 mm[Hg] Univer sity of [facility] Diastolic blood 2022-05-10 18:47:00 84 mm[Hg] Unive rsity of [facility] Heart rate 2022-05-10 18:47:00 91 /min Universi ty [facility] Body temperature 2022-05-10 18:47:00 36.94 Natasha [facility] 2022-05-10 18:47:00 18 /min [facility] Body height 2022-05-10 18:47:00 157.5 cm [facility] [place] [facility] [place] Body weight 2022-05-10 18:47:00 71.442 kg [facility] [place] [facility] [place] BMI 2022-05-10 18:47:00 28.81 kg/m2 Universi ty [facility] Oxygen saturation in 2022-05-10 18:47:00 99 /min [facility] of Arterial blood by [facility] Pulse oximetry Branch Procedures Procedure Date / Time Performing Clinician Source Performed COMP. METABOLIC PANEL 2022-10-04 16:51:00 Vandana Sotelo [facility] ([id number]) [facility] SEDIMENTATION RATE 2022-10-04 16:51:00 Vandana [facility] y [facility] CBC WITH DIFF 2022-10-04 16:51:00 Ashleigh Vandana [facility] FREE T4 2022-05-10 19:25:00 Ash[facility] THYROID STIMULATING 2022-05-10 19:25:00 Vandana Sotelo [facility] HORMONE [facility] COMP. METABOLIC PANEL 2022-05-10 19:25:00 Vandana Sotelo [facility] ([id number]) [facility] LIPID PANEL 2022-05-10 19:25:00 [facility] ([id number])(TOTAL Medical Branch CHOLESTEROL, TRIGLYCERIDES, HDL) CBC WITH DIFF 2022-05-10 19:25:00 [facility] GLYCOSYLATED HEMOGLOBIN 2022-05-10 19:25:00 [facility] (A1C) [facility] URINALYSIS 2022-05-10 19:25:00 [facility] HCV ANTIBODY 2022-05-10 19:25:00 [facility] VITAMIN D, 25-[place] 2022-05-10 19:25:00 [facility] Encounters Start End Encounter Admission Attending Care Care Encounter Source Date/Time Date/Time Type Type Clinicians Facility Department ID 2020-12-[address] [facility] MARY [id number] Univers 18:41:30 [facility] 2023-08-28 2023-08-28 Outpatient R SHELBI [facility] [id number] Univers 15:30:00 15:30:00 TAMMY [facility] 2023-01-07 2023-01-07 Outpatient R ASHLEIGH [facility] [id number] Univers 10:00:00 10:00:00 [facility] 2022-10-29 2022-10-29 Outpatient R SOLITARIO SUGGS [facility] B [id number] Univers 13:00:00 13:00:00 SOLITARIO SUGGS [facility] 2022-10-17 2022-10-17 Tankroom Tender 2, Adc Lab [facility] [id number] [id number] Univers 14:00:00 14:15:00 Visit Vandana Sotelo [id number] [facility] YAZAN 4.2.7.2.686 Lynn STARR [id number] Nh dical [address] 2022-10-17 2022-10-17 Outpatient R ASHLEIGH [facility] [id number] Univers 14:00:00 14:00:00 VANDANA [facility] 2022-10-17 2022-10-17 [facility] [id number] Univers 00:00:00 00:00:00 Vandana [place] [id number] i ty of [facility] [place] [id number] [address] 2022-10-11 2022-10-11 [facility] [id number] Univers 00:00:00 00:00:00 Vandana [place] [id number] i ty of [facility] [id number] [id number] [address] 2022-10-11 2022-10-11 [facility] [id number] Univers 00:00:00 00:00:00 Vandana [place] [id number] i ty of [facility] [id number] [id number] [address] 2022-10-10 2022-10-10 [facility] [id number] Univers 00:00:00 00:00:00 Vandana [place] [id number] i ty of [place] [id number] [address] 2022-10-08 2022-10-08 [facility] [id number] Univers 00:00:00 00:00:00 Vandana [place] [id number] i ty of [facility] 4.2.7.[place] [id number] [address] 2022-10-07 2022-10-07 Outpatient Meghna REDD, [facility] [id number] Univers 15:00:00 15:00:00 ERICA patel of [facility] 2022-10-06 2022-10-[address] [facility] [id number] Univers 00:00:00 00:00:00 Secure Msg UnassignedVIVIAN 350.1.13.10 ity of [place] [id number] Nh dical NAL [address] [place] [address] 2022-10-04 2022-10-04 [facility] [id number] Univers 11:00:00 12:32:09 VANDANA ity [facility] 2022-10-04 2022-10-04 Office [facility] [id number] Univers 11:00:00 12:32:09 Visit Vandana VIVIAN 350.1.13.10 i ty of [place] [id number] Nh dical NAL [address] [place] [address] 2022-10-04 2022-10-04 Tankroom Tender 2, Adc Lab [facility] 1.2.840.114 [id number] Univers 11:30:00 11:45:00 Visit Vandana Sotelo VIVIAN 350.1.13.10 ity of [place] [id number] Nh dicma NAL [address] [place] [address] 2022-09-06 2022-09-06 Outpatient [facility] [id number] Univers 13:30:00 14:16:54 VANDANA itdelbert [facility] 2022-09-06 2022-09-06 Office [facility] [id number] Univers 13:30:00 14:16:54 Visit Vandana [place] 350.1.13.10 i ty [place] [id number] Nh dical NAL [address] [place] [address] 2022-08-27 2022-08-27 Tankroom Tender 2, Adc Lab [facility] 1.2.840.114 [id number] Univers 14:15:00 14:30:00 Visit Vandana Sotelo VIVIAN 350.1.13.10 it[place] [id number] Nh dical NAL [address] [place] [address] 2022-08-27 2022-08-27 Outpatient [facility] [id number] Univers 13:30:00 13:49:23 VANDANA patel [facility] 2022-08-27 2022-08-27 [facility] 1.2.840.114 [id number] Univers 13:30:00 13:49:23 Visit Vandana [place] 350.1.13.10 i ty of [place] [id number] Nh dical NAL 044 [facility] 2022-08-27 2022-08-27 Outpatient [facility] [id number] Univers 13:30:00 13:30:00 VANDANA patel [facility] 2022-08-07 2022-08-07 [facility] 1.2.840.114 [id number] Univers 00:00:00 00:00:00 Vandana [place] 350.1.13.10 i [place] [id number] Nh dical NAL 044 [facility] 2022-07-23 2022-07-23 Outpatient R SHELBI [facility] [id number] Univers 13:30:00 13:57:47 TAMMYMARY patel [facility] 2022-07-23 2022-07-[address] [facility] 1.2.840.114 [id number] Univers 13:30:00 13:57:47 Visit Tammy [place] 350.1.13.10 ity [facility] 4[place]2.[place] [id number] Nh dical NAL 134 [facility] 2022-07-17 2022-07-17 Outpatient R SOLITARIO SUGGS [facility] B [id number] Univers 16:15:00 16:38:02 SOLITARIO SUGGS [facility] 2022-07-17 2022-07-17 Office [facility] 1.2.840.114 [id number] Univers 16:15:00 16:38:02 Visit Solitario PERES 350.1.13.10 it y of [place] [id number] [address] 2022-07-10 2022-07-[address] [facility] AYALA 1.2.840.114 [id number] Univers 00:00:00 00:00:00 Tammy PERES 350.1.13.10 i ty of [place] [id number] [address] 2022-07-08 2022-07-08 Outpatient Meghna [facility] [id number] Univers 13:30:00 14:15:17 VANDANA delbert [facility] 2022-07-08 2022-07-08 Office [facility] 1.2.840.114 [id number] Univers 13:30:00 14:15:17 Visit Vandana [place] 350.1.13.10 i [place] [id number] Nh dical NAL [address] [place] [address] 2022-07-01 2022-07-01 Outpatient Meghna [facility] [id number] Univers 13:00:00 13:00:00 [facility] 2022-06-27 2022-06-27 Outpatient Meghna [facility] [id number] Univers 11:30:00 11:30:00 VANDANA delbert [facility] 2022-06-21 2022-06-21 Outpatient Meghna [facility] [id number] Univers 13:00:00 13:00:00 VANDANA [facility] 2022-06-08 2022-06-08 [facility]ill [facility] 1.2.840.114 [id number] Univers 00:00:00 00:00:00 Vandana [place] 350.1.13.10 i ty of [facility] 4.2.7.2.[place] [id number] Nh dical NAL 044 [facility] 2022-05-13 2022-05-13 Outpatient R BATOOL HAMPTON [facility] [id number] Univers 15:00:00 15:00:00 BATOOL HAMPTON [facility] 2022-05-10 2022-05-10 Tankroom Tender 2, Adc Lab [facility] 1.2.840.114 [id number] Univers 13:30:00 13:45:00 Visit Vandana Sotelo 350.1.13.10 ity yamel [facility] 4[place]2.[place] [id number] Nh dical NAL 353 [facility] 2022-05-10 2022-05-10 Outpatient R [facility] [id number] Univers 12:30:00 13:13:47 VANDANA [facility] 2022-05-10 2022-05-[address] [facility] 1.2.840.114 [id number] Univers 12:30:00 13:13:47 Visit Vandana [place] 350.1.13.10 i ty [facility] 4[place]2.[place] [id number] Nh dical NAL 044 [facility] 2022-05-08 2022-05-08 Outpatient R LEV HAMPTONREZA [facility] [id number] Univers 14:00:00 14:00:00 JOSE HAMPTONEitanFernando [facility] 2022-02-13 2022-02-13 Outpatient R AD, [facility] [id number] Univers 15:00:00 15:00:00 [facility] 2022-01-16 2022-01-16 Outpatient R AD, [facility] [id number] Univers 15:00:00 15:00:00 [facility] 2021-12-26 2021-12-26 Outpatient R ADUM, [facility] [id number] Univers 13:30:00 13:30:00 [facility] 2021-11-28 2021-11-28 Outpatient R ADUM, [facility] [id number] Univers 13:30:00 13:30:00 [facility] 2021-10-24 2021-10-24 Outpatient R ADUM, [facility] [id number] Univers 09:00:00 09:00:00 TAMMY patel [facility] 2021-10-05 2021-10-05 Outpatient R SHELBI [facility] [id number] Univers 09:00:00 09:00:00 TAMMY delbert [facility] 2021-03-03 2021-03-03 Outpatient R BRI [facility] [id number] Univers 14:00:00 14:00:00 MELBA [facility] 2020-09-27 2020-09-27 Outpatient R SHELBI [facility] [id number] Univers 13:00:00 13:00:00 TAMMY [facility] 2020-09-19 2020-09-19 Outpatient R SHELBI [facility] [id number] Univers 11:00:00 11:00:00 TAMMY [facility] 2020-08-25 2020-08-25 Outpatient R ORLANDOGEROGETTE [facility] [id number] Univers 13:00:00 13:00:00 TAMMY [facility] 2020-05-09 2020-05-09 Outpatient R MAVERICK, [facility] [id number] Univers 15:15:00 15:15:00 [facility] 2020-04-24 2020-04-24 Outpatient R MAVERICK, [facility] [id number] Univers 15:45:00 15:45:00 [facility] 2020-03-31 2020-03-31 Outpatient R DEEP [facility] [id number] Univers 18:00:00 18:00:00 PARTHA phillydelbert o f [facility] 2020-03-27 2020-03-27 Outpatient R KAREY [facility] [id number] Univers 18:00:00 18:00:00 MORTEZA [facility] 2020-03-27 2020-03-27 Outpatient R MAVERICK, [facility] [id number] Univers 15:00:00 15:00:00 ROMARIO [facility] 2020-02-28 2020-02-28 Outpatient R MAVERICK, [facility] [id number] Univers 09:00:00 09:00:00 [facility] 2020-02-10 2020-02-10 Outpatient R KETAN [facility] [id number] Univers 13:20:00 13:20:00 DREA ity [facility] 2020-01-03 2020-01-03 Outpatient R DARYL [facility] [id number] Univers 15:00:00 15:00:00 [facility] 2019-11-30 2019-11-30 Outpatient R DARYL JOYCE [facility] [id number] Univers 10:30:00 10:30:00 ity [facility] 2019-11-29 2019-11-29 Outpatient R DARYL [facility] [id number] Univers 14:30:00 14:30:00 [facility] 2019-11-05 2019-11-05 Outpatient R DARYL [facility] [id number] Univers 10:45:00 10:45:00 [facility] 2019-11-02 2019-11-02 Outpatient R [facility] [id number] Univers 16:40:00 16:40:00 [facility] 2019-10-22 2019-10-22 Outpatient R SHELBI [facility] [id number] Univers 11:00:00 11:00:00 TAMMY [facility] 2019-10-13 2019-10-13 Outpatient R BRI [facility] [id number] Univers 16:00:00 16:00:00 MELBA [facility] 2019-10-09 2019-10-09 Outpatient R MATT [facility] [id number] Univers 13:20:00 13:20:00 KOMAL [facility] 2019-08-25 2019-08-25 Outpatient R DARYL [facility] [id number] Univers 11:30:00 11:30:00 [facility] 2019-08-23 2019-08-23 Office Daryl [facility] [id number] 13:41:19 16:06:53 [place] 350.1.13.10 [place] 4.2.7.2.686 [facility] [id number] [facility] [address] [facility] 2019-08-23 2019-08-23 Outpatient R JOYCE BRITO [facility] [id number] Univers 13:30:00 13:30:00 ity [facility] 2019-08-23 2019-08-23 Outpatient R JOYCE BRITO [facility] [id number] Univers 13:30:00 13:30:00 ity [facility] 2019-07-22 2019-07-22 Outpatient R JOYCE BRITO [facility] [id number] Univers 13:00:00 13:00:00 ity [facility] 2019-06-23 2019-06-23 Outpatient R MAVISHENRIKFARHANA [facility] [id number] Univers 10:00:00 10:00:00 [facility] 2019-06-22 2019-06-22 Outpatient R [facility] [id number] Univers 13:00:00 13:00:00 [facility] 2019-06-17 2019-06-17 Outpatient R MAVERICK [facility] [id number] Univers 10:15:00 10:15:00 [facility] 2019-06-15 2019-06-15 Outpatient P [facility] [id number] Univers 14:15:00 14:15:00 [facility] 2019-06-08 2019-06-08 Outpatient R [facility] [id number] Univers 09:00:00 09:00:00 [facility] 2019-06-03 2019-06-03 Outpatient R JOYCE BRITO [facility] [id number] Univers 11:30:00 11:30:00 [facility] 2019-05-19 2019-05-19 Outpatient R MAVISHENRIKFARHANA [facility] [id number] Univers 11:15:00 11:15:00 [facility] 2019-05-17 2019-05-17 Outpatient R MAVERICK [facility] [id number] Univers 10:00:00 10:00:00 [facility] 2019-05-03 2019-05-03 Outpatient R JOYCE BRITO [facility] [id number] Univers 10:00:00 10:00:00 ity [facility] 2019-03-04 2019-03-06 Inpatient ELINOR Khan [facility] [id number] [facility] 15:00:00 00:09:02 Laurie Stinson [facility] Results This patient has no known results. Notes Date/Time Note Provider Source 2022-10-17 14:00:00-00:00 Formatting of this note is d ifferent from the original. [facility] - [facility] Images from the original note were not included. Patient sent home with a collection kit for 24hr urine test. Merry Castro 10/17/2022 2:11 PM Venipuncture collection perf ormed by clean technique on the right anticubitus. Total of 1 attempts were made. Slight pressure and a bandage/dressing were applied to the site(s). The patient experienced no complications. The follow ing specimens were processed according to instructions and sent to [facility] laboratories per lab order on 10/17/2022 : LT BLUE SST 2 RED LAV PPT DK GREEN (LiHep) DK GREEN (SodH) STEVEN DK BLUE (K2) DK BLUE (S) ACD Blood Culture NIPT/NTD Electronically signed by Merry Castro at 0 10/17/2022 2:12 PM CDT 2022-10-17 08:36:31-00:00 Formatting of this note migh t be different from the original. [facility] Placing lab orders T 2022-10-11 11:15:16-00:00 Formatting of this note migh t be different from the original. [facility] - Health Orders placed T 2022-10-11 09:15:25-00:00 Formatting of this note migh t be different from the original. [facility] - Health orders 2022-10-10 08:45:53-00:00 Formatting of this note migh t be different from the original. [facility] Adding lab orders 2022-10-08 09:56:32-00:00 Formatting of this note migh t be different from the original. [facility] Placed referral orders 2022-10-04 11:30:00-00:00 Formatting of this note is d ifferent from the original. [facility] Images from the original note were not included. Venipuncture collection perf ormed by clean technique on the right anticubitus. Total of 1 attempts were made. Slight pressure and a bandage/dressing were applied to the site(s). The patient experienced no complications. The follow ing specimens were processed according to instructions and sent to [facility] laboratories per lab order on 10/04/2022 : LT BLUE SST 3 RED LAV 1 PPT DK GREEN (LiHep) DK GREEN (SodH) STEVEN DK BLUE (K2) DK BLUE (S) ACD Blood Culture NIPT/NTD Gave pt stool kit and instructions. Electronically signed by Sarah Arias at 2022 11:57 AM CDT 2022-10-04 11:00:00-00:00 Formatting of this note migh t be different from the original. [facility] So far all labs are normal
[2022-10-19] MEDS ORDERED: KETOROLAC 30 MG/ML INJ ONE (08:30)
[2022-10-19] MEDS ORDERED: MAGNES/ALUMIN/SIMET 30ML UCUP ONE (08:30)
[2022-10-19] MEDS ORDERED: FAMOTIDINE 20 MG/2 ML VIAL IV ONE (08:31)
[2022-10-19] MEDS ORDERED: NA CHLORIDE 0.9% 1,000 ML ONE (08:31)
[2022-10-19 08:36] LABS: Absolute Lymphocytes (CBC) 1.9 K/uL (0.7-4.9); Hematocrit 41.3 % (36.0-45.0); Lymphocytes % 23.5 % (15.3-44.8); MCV 83.9 fL (80-100); MPV 7.8 fL (7.6-11.3); Platelets 272 thou/uL (152-406); RBC Red Blood Cell Count 4.93 M/uL (3.86-4.86)
[2022-10-19 09:03] LABS: Albumin 4.1 g/dL (3.4-5.0); Bilirubin Total 0.9 mg/dL (0.2-1.0); Potassium 3.5 mEq/L (3.5-5.1); Protein, Total 8.3 g/dL (6.4-8.2)
--- NOTE | 2022-10-19 09:56 | ER ---
Nurse's Notes [facility] Name: Steph Ramirez Age: 32 yrs Sex: Female : 1990 Arrival Date: 10/19/2022 Time: 08:02 Bed 6 Private MD: Diagnosis: Diarrhea, unspecified Presentation: 10/19 08:12 Chief complaint: Diarrhea x 1 month, worse over last 2 days, abdominal pain today. Has hb had 7 yellow colored loose bowel movements today. Coronavirus screen: At this time, the client does not indicate any symptoms associated with coronavirus-19. Ebola Screen: No symptoms or risks identified at this time. Initial Sepsis Screen: Does the patient meet any 2 criteria? No. Patient's initial sepsis screen is negative. Does the patient have a suspected source of infection? No. Patient's initial sepsis screen is negative. Risk Assessment: Do you want to hurt yourself or someone else? Patient reports no desire to harm self or others. Onset of symptoms was October 18, 2022. 08:12 Method Of Arrival: Ambulatory hb 08:12 Acuity: SLOAN 3 hb Historical: - Allergies: 08:14 No Known Allergies; hb - Home Meds: 08:14 Carbamazepine Oral [Active]; Lopressor 25 Oral once daily [Active]; Prozac Oral hb [Active]; Wellbutrin Oral [Active]; - PMHx: 08:14 Anxiety; ibs; palpitations; hb - PSHx: 08:14 Cholecystectomy; hb - Immunization history:: Adult Immunizations up to date. - Social history:: Smoking status: Patient denies any tobacco usage or history of. Screenin:15 [facility] ED Fall Risk Assessment (Adult) History of falling in the last 3 months, ko1 including since admission No falls in past 3 months (0 pts) Confusion or Disorientation No (0 pts) Intoxicated or Sedated No (0 pts) Impaired Gait No (0 pts) Mobility Assist Device Used No (0 pt) Altered Elimination No (0 pt) Score/Fall Risk Level 0 - 2 = Low Risk Oriented to surroundings, Maintained a safe environment, Educated pt \T\ family on fall prevention, incl call for assistance when getting out of bed, Assessed \T\ reinforced patient's understanding of fall precautions, Provided non-skid footwear, Hourly rounding (assess needs \T\ fall precautionary measures) done, Used ambulatory aids as needed (educated on \T\ assisted with). Abuse screen: Denies threats or abuse. Denies injuries from another. Nutritional screening: No deficits noted. Tuberculosis screening: No symptoms or risk factors identified. Assessment: 08:15 General: Appears in no apparent distress. comfortable, Behavior is calm, cooperative, ko1 appropriate for age. Pain: Complains of pain in abdomen. Neuro: No deficits noted. Cardiovascular: No deficits noted. Respiratory: No deficits noted. GI: Bowel sounds present X 4 quads. Abd is soft and non tender X 4 quads. : No deficits noted. EENT: No deficits noted. Derm: No deficits noted. Musculoskeletal: No deficits noted. Vital Signs: 08:12 BP 137 / 88; Pulse 87; Resp 16; Temp 98.2(O); Pulse Ox 100% on R/A; Weight 71.21 kg; hb Height 5 ft. 2 in. ; Pain 3/10; 08:26 BP 118 / 72; Pulse 65; Pulse Ox 100% ; ap3 09:14 BP 111 / 77; Pulse 68; Resp 16; Pulse Ox 99% ; ko1 09:59 BP 97 / 74; Pulse 72; Resp 16; Pulse Ox 99% ; ko1 08:12 Body Mass Index 28.72 (71.21 kg, 157.48 cm) hb 08:12 Pain Scale: Adult hb ED Course: 08:04 Patient arrived in ED. ts1 08:08 Jere Ordonez MD is Attending Physician. jr11 08:08 Jessica Gonzalez, EVANS is Primary Nurse. ap3 08:14 Triage completed. hb 08:15 Arm band placed on. hb 08:15 Patient has correct armband on for positive identification. Bed in low position. Call ko1 light in reach. Provided Education on: NA. Pulse ox on. NIBP on. Door closed. Noise minimized. Warm blanket given. 08:16 Inserted saline lock: 20 gauge in right antecubital area, using aseptic technique. ap3 Blood collected. 08:17 Patient has correct armband on for positive identification. Bed in low position. Call ap3 light in reach. Side rails up X 1. Pulse ox on. NIBP on. 08:20 Initial lab(s) drawn, by me, sent to lab. ap3 09:13 ED physician to see patient. ap3 09:14 No provider procedures requiring assistance completed. ko1 09:59 IV discontinued, intact, bleeding controlled, No redness/swelling at site. Pressure ko1 dressing applied. Administered Medications: 08:25 Drug: NS 0.9% IV 1000 ml Route: IV; Rate: 1 bolus; Site: right antecubital; ap3 09:15 Follow up: IV Status: Completed infusion ap3 08:25 Drug: Famotidine IVP 20 mg Route: IVP; Site: right antecubital; ap3 09:15 Follow up: Response: No adverse reaction ap3 08:25 Drug: TORadol - Ketorolac IVP 15 mg Route: IVP; Site: right antecubital; ap3 09:15 Follow up: Response: No adverse reaction; Pain is decreased ap3 08:26 Drug: GI Cocktail with - (Phenobarbital-Belladonna PO 10 ml, Maalox PO ap3 Suspension 30 ml, Lidocaine Mucous Membrane Liquid 2 % 20 ml) Route: PO; 09:15 Follow up: Response: No adverse reaction ap3 Medication: 08:26 VIS not applicable for this client. ap3 Outcome: 09:56 Discharge ordered by . amanda 09:59 Discharged to home ambulatory. ko1 09:59 Condition: improved 09:59 Discharge instructions given to patient, Instructed on discharge instructions, follow up and referral plans. medication usage, Demonstrated understanding of instructions, follow-up care, medications, Prescriptions given X 1. 10:03 Patient left the ED. ko1 Signatures: Kesha Rodriguez RN RN Jessica Gonzalez RN RN ap3 Jere Ordonez MD MD jr11 Ema Holloway RN RN ko1 Mariana Corral, CHUCK PAS ts1
--- NOTE | 2022-10-19 09:56 | EDPHYS ---
Physician Documentation [facility] Name: Steph Ramirez Age: 32 yrs Sex: Female : 1990 Arrival Date: 10/19/2022 Time: 08:02 Bed 6 Private MD: ED Physician Jere Ordonez HPI: 10/19 08:34 Patient is a 32-year-old that comes in with acute on chronic diarrhea. Patient states jr11 that she had her gallbladder taken out, and since then, over 1 month of intermittent diarrhea, feels the urge to defecate after eating. She goes about twice a day. Patient states that this morning, she is gone 7 times associated with some abdominal cramping, no recent travel no antibiotic use, no blood no mucus no fever. Abdominal cramping right now 3 out of 10.. Historical: - Allergies: 08:14 No Known Allergies; hb - Home Meds: 08:14 Carbamazepine Oral [Active]; Lopressor 25 Oral once daily [Active]; Prozac Oral hb [Active]; Wellbutrin Oral [Active]; - PMHx: 08:14 Anxiety; ibs; palpitations; hb - PSHx: 08:14 Cholecystectomy; hb - Immunization history:: Adult Immunizations up to date. - Social history:: Smoking status: Patient denies any tobacco usage or history of. ROS: 08:34 All other systems are negative. jr11 Exam: 08:34 Constitutional: This is a well developed, well nourished patient who is awake, alert, jr11 and in no acute distress. Head/Face: Normocephalic, atraumatic. Eyes: Extra-ocular motions intact. Lids and lashes normal. Conjunctiva and sclera are non-icteric and not injected. Cornea within normal limits. Periorbital areas with no swelling, redness, or edema. ENT: Nares patent. No nasal discharge, no septal abnormalities noted. Oropharynx with no redness, swelling, or masses, exudates, or evidence of obstruction, uvula midline. Mucous membranes moist. Neck: Trachea midline, no thyromegaly or masses palpated, and no cervical lymphadenopathy. Supple, full range of motion without nuchal rigidity, or vertebral point tenderness. No Meningismus. Chest/axilla: Normal chest wall appearance and motion. Nontender with no deformity. No lesions are appreciated. Cardiovascular: Regular rate and rhythm with a normal S1 and S2. No gallops, murmurs, or rubs. Normal PMI, no JVD. No pulse deficits. Respiratory: Lungs have equal breath sounds bilaterally, clear to auscultation and percussion. No rales, rhonchi or wheezes noted. No increased work of breathing, no retractions or nasal flaring. Abdomen/GI: Soft, non-tender, with normal bowel sounds. No distension or tympany. No guarding or rebound. No evidence of tenderness throughout. Back: No spinal tenderness. No costovertebral tenderness. Full range of motion. Skin: Warm, dry with normal turgor. Normal color with no rashes, no lesions, and no evidence of cellulitis. MS/ Extremity: Pulses equal, no cyanosis. Neurovascular intact. Full, normal range of motion. Vital Signs: 08:12 BP 137 / 88; Pulse 87; Resp 16; Temp 98.2(O); Pulse Ox 100% on R/A; Weight 71.21 kg; hb Height 5 ft. 2 in. ; Pain 3/10; 08:26 BP 118 / 72; Pulse 65; Pulse Ox 100% ; ap3 09:14 BP 111 / 77; Pulse 68; Resp 16; Pulse Ox 99% ; ko1 09:59 BP 97 / 74; Pulse 72; Resp 16; Pulse Ox 99% ; ko1 08:12 Body Mass Index 28.72 (71.21 kg, 157.48 cm) hb 08:12 Pain Scale: Adult hb MDM: 08:08 Patient medically screened. jr11 08:34 Differential diagnosis: Nonspecific abd pain, viral gastroenteritis, gastroenteritis, jr11 Patient is a 32-year-old with a soft benign abdomen, 7 episodes of diarrhea this morning, will treat symptomatically in the emergency department. Patient likely with viral syndrome versus food intoxication. No red flags noted blood no mucus no fever, less likely bacterial infection. No concern for surgical abdomen, no concern for diverticulitis, abdomen soft benign. Vitals normal. If labs normal, will continue symptomatic management for 3 days, if worsening, patient to return. Patient already has container from primary care for stool culture. Data reviewed: vital signs, nurses notes. 09:55 ED course: Pt feeling better, no risk factors for infectious, only 1 BM here. jr11 10/19 08:17 Order name: CBC with Diff; Complete Time: 09:10/19 08:17 Order name: CMP; Complete Time: 09:10/19 08:17 Order name: Lipase; Complete Time: 09:10/19 08:17 Order name: IV Saline Lock; Complete Time: 08:18 10/19 08:17 Order name: Labs collected and sent; Complete Time: : Administered Medications: 08:25 Drug: NS 0.9% IV 1000 ml Route: IV; Rate: 1 bolus; Site: right antecubital; ap3 09:15 Follow up: IV Status: Completed infusion ap3 08:25 Drug: Famotidine IVP 20 mg Route: IVP; Site: right antecubital; ap3 09:15 Follow up: Response: No adverse reaction ap3 08:25 Drug: TORadol - Ketorolac IVP 15 mg Route: IVP; Site: right antecubital; ap3 09:15 Follow up: Response: No adverse reaction; Pain is decreased ap3 08:26 Drug: GI Cocktail with - (Phenobarbital-Belladonna PO 10 ml, Maalox PO ap3 Suspension 30 ml, Lidocaine Mucous Membrane Liquid 2 % 20 ml) Route: PO; 09:15 Follow up: Response: No adverse reaction ap3 Disposition Summary: 10/19/22 09:56 Discharge Ordered Location: Home [facility] Condition: Stable jr11 Diagnosis - Diarrhea, unspecified jr11 Discharge Instructions: - Discharge Summary Sheet jr11 - Food Choices to Help Relieve Diarrhea, Adult jr11 - Diarrhea, Adult jr11 Forms: - Medication Reconciliation Form jr11 - Thank You Letter jr11 - Antibiotic Education jr11 - Prescription Opioid Use jr11 - Patient Portal Instructions jr11 - Leadership Thank You Letter jr11 Prescriptions: - dicyclomine 20 mg Oral Tablet - take 1 tablet by ORAL route 3 times per day prn cramps; 20 tablet; Refills: 0, jr11 Product Selection Permitted Signatures: Dispatcher [employer] EDKesha Hu RN RN hb Prokisch, Amanda, RN RN ap3 Jere Ordonez MD MD jr11
[2022-10-19 10:12] VITALS: TEMP 98.2
[2022-10-19 10:23] VITALS: O2SAT 99
[2022-10-19 10:28] VITALS: BP 97/74
== END 2022-10-19 10:03 | disposition home or self-care (01) ==
LOC: ER 08:02
DX: R19.7 Diarrhea, unspecified (principal); F41.9 Anxiety disorder, unspecified; R00.2 Palpitations; Z98.890 Other specified postprocedural states
CPT/HCPCS: 96361; 85025; 36415; 83690; 80053; 96375; 96374; 99284; J7030